=== PATIENT | male | born 1955 | race Caucasian/White ===

== ENCOUNTER 2019-08-18 19:37 | Inpatient (IN) | payer OTHER ==
[~2019-08-18] VITALS: Ht 193 cm; Wt 127.6 kg
[2019-08-18 22:36] VITALS: BP 139/85
[2019-08-19] MEDS ORDERED: ZOLPIDEM 5MG TABLET PO PRN ×2 (00:30→20:00)
[2019-08-19] MEDS ORDERED: ACETAMINOPHEN 325 MG TABLET PO PRN (00:30)
[2019-08-19] MEDS ORDERED: hydrALAzine 20 MG/ML, 1ML IVPush PRN (00:30)
[2019-08-19] MEDS ORDERED: DOCUSATE 100 MG CAPSULE PO PRN (00:30)
[2019-08-19 00:45] VITALS: BP 143/74
[2019-08-19] MEDS: HYDROcodone/APAP 5/325 TABLET PO PRN ×2 (02:54→14:34)
[2019-08-19] MEDS ORDERED: LIDOCAINE 2%, 20ML ONE (06:51)
[2019-08-19] MEDS ORDERED: CEFAZOLIN PMX 1GM/50ML 50 ML ONE (06:51)
[2019-08-19] MEDS ORDERED: MIDAZOLAM 1 MG/ML, 5ML ONE (06:51)
[2019-08-19] MEDS ORDERED: CEFAZOLIN 1,000 MG ONE (06:51)
[2019-08-19] MEDS ORDERED: FENTANYL PF 100 MCG/2ML ONE (06:51)
[2019-08-19] MEDS ORDERED: LIDOCAINE 1%, 20ML ONE (07:22)
[2019-08-19] MEDS ORDERED: MIDAZOLAM 1 MG/ML, 2ML ONE ×2 (07:24→07:40)
[2019-08-19] MEDS ORDERED: HOLD MEDICATION MC PRN (07:30)
[2019-08-19 08:18] VITALS: BP 136/86
[2019-08-19] MEDS: SODIUM CHLORIDE FLUSH 10ML SYR IVF SCH ×2 (08:27→21:00)
[2019-08-19 09:16] LABS: ALBUMIN 3.5 g/dL (3.4-5.0); ANION GAP 6 mmol/L (5-15); CHLORIDE 112 mmol/L (98-107)
[2019-08-19 09:25] LABS: ALANINE AMINOTRANSFERASE 35 U/L (12-78); ALKALINE PHOSPHATASE 63 U/L (45-117); BILIRUBIN,TOTAL 1.6 mg/dL (0.2-1.0); CREATININE 0.98 mg/dL (0.7-1.3); FREE T4 (FREE THYROXINE) 0.92 ng/dL (0.76-1.46); TOTAL PROTEIN 7.2 g/dL (6.4-8.2)
[2019-08-19 09:51] LABS: MEAN CORPUSCULAR HEMOGLOBIN 30.9 pg (27.5-34.5); MEAN CORPUSCULAR HGB CONC 32.6 g/dL (33.2-36.2); MEAN CORPUSCULAR VOLUME 94.8 fL (81-97); MEAN PLATELET VOLUME 9.3 fL (7.4-10.4); PLATELET COUNT 89 x10^3/uL (130-400); RED BLOOD COUNT 4.29 x10^6/uL (4.38-5.82); RED CELL DISTRIBUTION WIDTH 22.2 % (9.4-14.8)
[2019-08-19 09:52] LABS: MD YES
[2019-08-19 09:59] LABS: BAND#(MANUAL) 0.19 x10^3/uL; BANDS%(MANUAL) 6 % (0-7); EOS#(MANUAL) 0.06 x10^3/uL (0.0-0.4); EOS% (MANUAL) 2 % (1-7); LYMPH#(MANUAL) 1.44 x10^3/uL (1-3.4); LYMPHS% (MANUAL) 45 % (22-44); MONOS#(MANUAL) 0.19 x10^3/uL (0.3-2.7); MONOS% (MANUAL) 6 % (2-9); NRBC % (MANUAL) 3 % (0-1); REACTIVE LYMPHS # (MANUAL) 0.19 x10^3/uL (0-0); REACTIVE LYMPHS % (MANUAL) 6 % (0-0); SEG#(MANUAL) 1.12 x10^3/uL (1.8-6.8); SEGS% (MANUAL) 35 % (42-75)
[2019-08-19 10:01] LABS: POLYCHROMASIA 1+
[2019-08-19 10:02] LABS: <PLATELET ESTIMATE> DECREASED; ANISOCYTOSIS 1+; LARGE PLATELETS 1+; PMNS WITH VACUOLES 1+
[2019-08-19 14:11] VITALS: BP 127/75
[2019-08-19] MEDS: LIDODERM 5% PATCH TD PRN (14:33)
[2019-08-19] MEDS: CEFAZOLIN PMX 1GM/50ML 50 ML IVPB SCH (16:58)
[2019-08-19 19:41] VITALS: BP 149/77
[2019-08-19] MEDS ORDERED: ZOLPIDEM 10MG TABLET ONE (19:58)
[2019-08-19] MEDS ORDERED: ATORVASTATIN 40 MG TABLET PO SCH (21:00)
[2019-08-20] MEDS: CEFAZOLIN PMX 1GM/50ML 50 ML IVPB SCH (00:17)
[2019-08-20 00:37] VITALS: BP 124/63
[2019-08-20] MEDS ORDERED: METOPROLOL SUCCINATE 25 MG TAB.ER.24H PO SCH (06:00)
[2019-08-20 06:08] LABS: CHLORIDE 107 mmol/L (98-107)
[2019-08-20 06:17] LABS: ALANINE AMINOTRANSFERASE 36 U/L (12-78); ALBUMIN 3.7 g/dL (3.4-5.0); ALKALINE PHOSPHATASE 72 U/L (45-117); ANION GAP 7 mmol/L (5-15); BILIRUBIN,TOTAL 1.7 mg/dL (0.2-1.0); CALCIUM 9.1 mg/dL (8.5-10.1); CHOL/HDL RATIO 3.5; CHOLESTEROL, TOTAL 120 mg/dL (140-239); CREATININE 1.02 mg/dL (0.7-1.3); HDL CHOL % 28 % (26-37); HDL CHOLESTEROL (DIRECT) 34 mg/dL (40-60); LDL CHOLESTEROL,CALCULATED 67 mg/dL (54-169); TOTAL PROTEIN 7.8 g/dL (6.4-8.2); TRIGLYCERIDES 93 mg/dL (50-200); VLDL CHOLESTEROL 19 mg/dL (0-25)
[2019-08-20 06:47] LABS: MD YES; MEAN CORPUSCULAR HEMOGLOBIN 30.8 pg (27.5-34.5); MEAN CORPUSCULAR HGB CONC 32.6 g/dL (33.2-36.2); MEAN CORPUSCULAR VOLUME 94.4 fL (81-97); MEAN PLATELET VOLUME 9.4 fL (7.4-10.4); PLATELET COUNT 98 x10^3/uL (130-400); RED BLOOD COUNT 4.62 x10^6/uL (4.38-5.82); RED CELL DISTRIBUTION WIDTH 21.8 % (9.4-14.8)
[2019-08-20 06:50] LABS: BAND#(MANUAL) 0.27 x10^3/uL; BANDS%(MANUAL) 6 % (0-7); EOS#(MANUAL) 0.05 x10^3/uL (0.0-0.4); EOS% (MANUAL) 1 % (1-7); LYMPH#(MANUAL) 1.76 x10^3/uL (1-3.4); LYMPHS% (MANUAL) 39 % (22-44); MONOS#(MANUAL) 0.36 x10^3/uL (0.3-2.7); MONOS% (MANUAL) 8 % (2-9); NRBC % (MANUAL) 8 % (0-1); PMNS WITH VACUOLES 1+; SEG#(MANUAL) 2.07 x10^3/uL (1.8-6.8); SEGS% (MANUAL) 46 % (42-75)
[2019-08-20 06:51] LABS: <PLATELET ESTIMATE> DECREASED; ANISOCYTOSIS 1+; LARGE PLATELETS 1+; POLYCHROMASIA 1+
[2019-08-20 07:34] VITALS: BP 129/72
[2019-08-20] MEDS: LIDODERM 5% PATCH TD PRN (08:43)
[2019-08-20 09:21] VITALS: BP 146/86
[2019-08-20] MEDS ORDERED: METO25TA91 PO ×2 (13:16→13:31)
[2019-08-20] MEDS ORDERED: TRAM50TA2 PO (13:16)
[2019-08-20] MEDS ORDERED: ATOR40TA78 PO ×2 (13:16→13:31)
== END 2019-08-20 15:20 | disposition home or self-care (01) | DRG 227 ==
LOC: 5SO 22:30 → DCLOUNGE 08-20 15:05
PROVIDERS: ADMIT Family Medicine; ATTEND Internal Medicine
PROC: 0JH608Z Insertion of Defibrillator Generator into Chest Subcutaneous Tissue and Fascia, Open Approach (ICD-10-PCS; principal; 2019-08-19)
PROC: 02HK3KZ Insertion of Defibrillator Lead into Right Ventricle, Percutaneous Approach (ICD-10-PCS; 2019-08-19)
PROC: 02H63KZ Insertion of Defibrillator Lead into Right Atrium, Percutaneous Approach (ICD-10-PCS; 2019-08-19)
DX: I45.81 Long QT syndrome (principal); S22.22XA Fracture of body of sternum, initial encounter for closed fracture; D64.9 Anemia, unspecified; D69.6 Thrombocytopenia, unspecified; E04.1 Nontoxic single thyroid nodule; I10 Essential (primary) hypertension; I25.10 Atherosclerotic heart disease of native coronary artery without angina pectoris; E66.9 Obesity, unspecified; Z68.34 Body mass index [BMI] 34.0-34.9, adult; Z87.891 Personal history of nicotine dependence; V89.2XXA Person injured in unspecified motor-vehicle accident, traffic, initial encounter; Y93.89 Activity, other specified; Y92.488 Other paved roadways as the place of occurrence of the external cause; Y99.8 Other external cause status
CPT/HCPCS: 33249; 36415; J3490; 71045; 80053; 80061; 83735; 84100; 84439; 84443; 84481; 85025; 93306; 99156; 99157; 99285; C1721; C1779; C1892; C1895; G0378; J0690; J2250; J3010

== ENCOUNTER 2020-02-10 17:02 | Emergency (ER) | payer MEDICARE ==
[~2020-02-10] VITALS: Ht 193 cm; Wt 126.6 kg
[~2020-02-10 17:02] MED LIST: ATOR40TA78 PO; METO25TA91 PO; TRAM50TA2 PO
--- NOTE | 2020-02-10 17:57 | NUR ---
PT STATES SOME DIZZINESS AND "FEELING WEIRD" X 3 DAYS. PT PLACED ON MONITORS, VSS. PACERMAKER INTEROGATED PER ERMD ORDERS, AWAITING REPORT. AWAITING LAB AND IMAGING RESULTS.
[2020-02-10 18:14] LABS: ALBUMIN 3.7 g/dL (3.4-5.0); ANION GAP 7 mmol/L (5-15); CALCIUM 9.1 mg/dL (8.5-10.1); CHLORIDE 109 mmol/L (98-107)
[2020-02-10 18:18] LABS: MEAN CORPUSCULAR HEMOGLOBIN 30.4 pg (27.5-34.5); MEAN CORPUSCULAR HGB CONC 32.5 g/dL (33.2-36.2); MEAN CORPUSCULAR VOLUME 93.7 fL (81-97); MEAN PLATELET VOLUME 10.2 fL (7.4-10.4); PLATELET COUNT 122 x10^3/uL (130-400); RED BLOOD COUNT 4.38 x10^6/uL (4.38-5.82); RED CELL DISTRIBUTION WIDTH 21.5 % (9.4-14.8)
[2020-02-10 18:19] LABS: TROPONIN I < 0.015 ng/mL (0.000-0.045)
--- NOTE | 2020-02-10 18:35 | NUR ---
PT RESTING IN BED, REMAINS ON MONITORS, VSS. NO DISTRESS. CONT TO MONITOR.
--- NOTE | 2020-02-10 19:05 | NUR ---
REPORT GIVEN TO ASHLEY RODRIGUEZ.
[2020-02-10 19:21] LABS: MD YES
[2020-02-10 19:27] LABS: BANDS%(MANUAL) 3 % (0-7); EOS#(MANUAL) 0.03 x10^3/uL (0.0-0.4); EOS% (MANUAL) 1 % (1-7); LYMPH#(MANUAL) 1.77 x10^3/uL (1-3.4); LYMPHS% (MANUAL) 52 % (22-44); MONOS% (MANUAL) 6 % (2-9); NRBC % (MANUAL) 6 % (0-1); SEG#(MANUAL) 1.29 x10^3/uL (1.8-6.8); SEGS% (MANUAL) 38 % (42-75)
[2020-02-10 19:28] LABS: ANISOCYTOSIS 1+; POLYCHROMASIA 1+
[2020-02-10 19:30] LABS: <PLATELET ESTIMATE> DECREASED; <PLT MORPHOLOGY> NORMAL PLT MORPH; PMNS WITH VACUOLES 1+
[2020-02-10 19:44] VITALS: BP 140/81
== END 2020-02-10 19:50 | disposition home or self-care (01) ==
LOC: ED 18:35
DX: R42 Dizziness and giddiness (principal); R00.2 Palpitations; R94.31 Abnormal electrocardiogram [ECG] [EKG]; I25.10 Atherosclerotic heart disease of native coronary artery without angina pectoris
CPT/HCPCS: 36415; 71045; 80048; 82040; 83735; 84443; 84484; 85025; 93005; 99285

== ENCOUNTER 2021-02-03 09:23 | Emergency (ER) | payer MEDICARE ==
[~2021-02-03] VITALS: Ht 193 cm; Wt 125.0 kg
[~2021-02-03 09:23] MED LIST changes: +ALLO300T PO; +AMOX1TAB12 PO; +ASCO500T9 PO; +CHOL500045 PO; +DOCU-131 PO; +GABA-827 PO; +OXYC10TA6 PO; +POLY17PO5 PO; +PRED50TA PO; +ZINC220C8 PO
--- NOTE | 2021-02-03 09:33 | NUR ---
CODE 250 CALLED NEAR 3RD FLOOR ELEVATOR. PT REPORTS SEVERE "SPLEEN PAIN", PT DIAPHORETIC, AND STATING HE WAS DIZZY. PT WAS ON [facility] WAY [facility] OF BLOOD. PT REPORTS HE HAS BONE MARROW CANCER AND HAS LOW PLATELETS. PT RESTING IN [facility], MONITORING IN PLACE, ALEC FISCHER AT BEDSIDE FOR EVAL, EKG DONE, PIV ALREADY IN PLACE UPON ARRIVAL, TOY.
[2021-02-03] MEDS ORDERED: MORPHINE SULFATE 4 MG/ML, 1ML ONE (09:39)
[2021-02-03] MEDS ORDERED: ONDANSETRON 2MG/ML, 2ML ONE (09:39)
[2021-02-03 09:59] LABS: MEAN CORPUSCULAR HEMOGLOBIN 30.2 pg (27.5-34.5); MEAN CORPUSCULAR HGB CONC 30.6 g/dL (33.2-36.2); MEAN PLATELET VOLUME 10.4 fL (7.4-10.4); RED BLOOD COUNT 2.82 x10^6/uL (4.38-5.82); RED CELL DISTRIBUTION WIDTH 22.7 % (9.4-14.8)
[2021-02-03] MEDS ORDERED: ONDANSETRON 2MG/ML, 2ML IVPush ONE (10:00)
[2021-02-03] MEDS ORDERED: MORPHINE SULFATE 4 MG/ML, 1ML IVPush PRN (10:00)
[2021-02-03] MEDS ORDERED: SODIUM CHLORIDE 0.9% 1,000ML IVBOLUS ONE (10:00)
[2021-02-03 10:02] LABS: PLATELET COUNT 10 x10^3/uL (130-400)
[2021-02-03 10:07] LABS: INTERNATIONAL NORMALIZED RATIO 1.1 (0.93-1.1); PROTHROMBIN TIME 11.7 Seconds (9.6-11.5)
[2021-02-03 10:09] LABS: ALANINE AMINOTRANSFERASE 18 U/L (12-78); ALBUMIN 3.1 g/dL (3.4-5.0); ANION GAP 11 mmol/L (5-15); CALCIUM 8.8 mg/dL (8.5-10.1); CHLORIDE 105 mmol/L (98-107); CREATININE 1.01 mg/dL (0.7-1.3)
[2021-02-03 10:11] LABS: ALKALINE PHOSPHATASE 60 U/L (45-117); TOTAL PROTEIN 7.2 g/dL (6.4-8.2)
[2021-02-03 10:20] LABS: LYMPHS% (MANUAL) 5 % (22-44); METAMYELOCYTES# (MANUAL) 3.99 x10^3/uL (0-0); METAMYELOCYTES% (MANUAL) 8 % (0-1); PROGRANULOCYTES% (MANUAL) 2 % (0-0)
[2021-02-03 10:23] LABS: BAND#(MANUAL) 8.98 x10^3/uL; BANDS%(MANUAL) 18 % (0-7); MONOS% (MANUAL) 4 % (2-9); MYELOCYTES# (MANUAL) 4.49 x10^3/uL (0-0); MYELOCYTES% (MANUAL) 9 % (0-0); SEG#(MANUAL) 26.95 x10^3/uL (1.8-6.8); SEGS% (MANUAL) 54 % (42-75); TOXIC GRAN 2+
[2021-02-03 10:24] LABS: ANISOCYTOSIS 1+; HYPOCHROMIA 1+; MICROCYTOSIS 1+; OVALOCYTES 1+; PMNS WITH VACUOLES 1+; POLYCHROMASIA 1+
[2021-02-03 10:25] LABS: SPHEROCYTES 1+
[2021-02-03 10:26] LABS: <PLATELET ESTIMATE> DECREASED; <PLT MORPHOLOGY> QNS FOR PLT MORPH; TEAR DROPS 1+
[2021-02-03] MEDS ORDERED: OMNIPAQUE 350 MG/ML, 100ML BOTTLE ONE (11:21)
[2021-02-03] MEDS ORDERED: ACETAMINOPHEN 500 MG TABLET ONE (11:44)
[2021-02-03] MEDS ORDERED: DIPHENHYDRAMINE 50 MG/ML, 1ML ONE (11:44)
[2021-02-03 11:49] VITALS: BP 125/64
[2021-02-03] MEDS ORDERED: DIPHENHYDRAMINE 50 MG/ML, 1ML IV ONE (12:00)
[2021-02-03] MEDS ORDERED: ACETAMINOPHEN 325 MG TABLET PO ONE (12:00)
[2021-02-03 12:04] VITALS: BP 130/55
[2021-02-03 12:08] LABS: MICROSCOPIC NOT IND
--- NOTE | 2021-02-03 12:11 | NUR ---
PER [facility] RN AND EDMD PIV TO BE LEFT IN UPON DISCHARGE FOR INFUSION OF PLATELETS TOMORROW.
[2021-02-03 12:20] VITALS: BP 123/57
[2021-02-03 12:43] VITALS: BP 125/56
== END 2021-02-03 12:45 | disposition home or self-care (01) ==
LOC: ED 10:41
DX: R10.12 Left upper quadrant pain (principal); D69.6 Thrombocytopenia, unspecified; I10 Essential (primary) hypertension; R55 Syncope and collapse; I25.10 Atherosclerotic heart disease of native coronary artery without angina pectoris; R16.1 Splenomegaly, not elsewhere classified; C94.6 Myelodysplastic disease, not elsewhere classified; E66.9 Obesity, unspecified; Z68.33 Body mass index [BMI] 33.0-33.9, adult
CPT/HCPCS: 36415; 36430; 71045; 74177; 80053; 81003; 83690; 85025; 85610; 86850; 86900; 93005; 96361; 96374; 96375; 99285; J1200; J2270; J2405; J7030; P9037; Q9967

== ENCOUNTER 2021-03-03 16:29 | Observation (INO) | payer MEDICARE ==
[~2021-03-03] VITALS: Ht 193 cm; Wt 105.5 kg
[~2021-03-03 16:29] MED LIST changes: +HYDR500C3 PO
--- NOTE | 2021-03-03 17:54 | NUR ---
ERP DOC [place] WITH USING IV PLACED BY [facility] YESTERDAY. IV FLUSHES AND HAS CLEAN, INTACT DRESSING.
[2021-03-03 17:58] LABS: MEAN CORPUSCULAR HEMOGLOBIN 30.1 pg (27.5-34.5); MEAN PLATELET VOLUME 12.2 fL (7.4-10.4); RED BLOOD COUNT 2.43 x10^6/uL (4.38-5.82); RED CELL DISTRIBUTION WIDTH 20.8 % (9.4-14.8)
[2021-03-03 18:04] LABS: PLATELET COUNT 6 x10^3/uL (130-400)
[2021-03-03 18:07] LABS: ANION GAP 7 mmol/L (5-15); CHLORIDE 104 mmol/L (98-107); CREATININE 1.03 mg/dL (0.7-1.3)
[2021-03-03] MEDS ORDERED: HYDROmorphone 1 MG/ML, 1ML INJ ONE (18:11)
--- NOTE | 2021-03-03 18:21 | NUR ---
PT MEDICATED FOR PAIN. 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 PT UNABLE TO RECALL HIS HOME MEDS. UNABLE TO COMPLETE MED REC AT THIS TIME. PT RESTING CALMLY IN BED AT THIS TIME.
[2021-03-03] MEDS ORDERED: HYDROmorphone 1 MG/ML, 1ML INJ IV ONE (18:30)
[2021-03-03 18:39] LABS: BANDS%(MANUAL) 15 % (0-7); BASOS#(MANUAL) 1.02 x10^3/uL (0-0.1); BASOS% (MANUAL) 1 % (0-1); LYMPH#(MANUAL) 3.06 x10^3/uL (1-3.4); LYMPHS% (MANUAL) 3 % (22-44); METAMYELOCYTES# (MANUAL) 6.12 x10^3/uL (0-0); METAMYELOCYTES% (MANUAL) 6 % (0-1); MONOS#(MANUAL) 3.06 x10^3/uL (0.3-2.7); MONOS% (MANUAL) 3 % (2-9); MYELOCYTES# (MANUAL) 4.08 x10^3/uL (0-0); MYELOCYTES% (MANUAL) 4 % (0-0); PROGRANULOCYTES% (MANUAL) 5 % (0-0); SEG#(MANUAL) 64.26 x10^3/uL (1.8-6.8); SEGS% (MANUAL) 63 % (42-75)
[2021-03-03 18:46] LABS: ANISOCYTOSIS 1+; POLYCHROMASIA 1+
[2021-03-03 18:48] LABS: SPHEROCYTES 1+
[2021-03-03 18:50] LABS: PMNS WITH VACUOLES 1+; TEAR DROPS 1+; TOXIC GRAN 2+
[2021-03-03 18:51] LABS: <PLATELET ESTIMATE> DECREASED; <PLT MORPHOLOGY> QNS FOR PLT MORPH
--- NOTE | 2021-03-03 19:09 | NUR ---
Report received from MICHAEL Almendarez. This RN to assume care. Patient to receive blood products.
[2021-03-03 20:15] VITALS: BP 149/75
[2021-03-03] MEDS ORDERED: OXYcodone/APAP 10/325MG TABLET ONE (20:24)
[2021-03-03] MEDS ORDERED: OXYcodone/APAP 10/325MG TABLET PO ONE (20:30)
[2021-03-03 20:48] VITALS: BP 118/51
--- NOTE | 2021-03-03 20:58 | NUR ---
Report given to MICHALE Yung. Patient to be transferred to room [id number].
[2021-03-03] MEDS ORDERED: POLYETHYLENE GLYCOL 17 GM PACKET PO PRN (21:00)
[2021-03-03] MEDS ORDERED: ONDANSETRON ODT 4 MG PO PRN (21:00)
[2021-03-03] MEDS ORDERED: ACETAMINOPHEN 325 MG TABLET PO PRN (21:00)
[2021-03-03] MEDS ORDERED: ENALAPRILAT 1.25 MG/ML, 2ML IVPush PRN (21:00)
[2021-03-03] MEDS ORDERED: ONDANSETRON 2MG/ML, 2ML IVPush PRN (21:00)
[2021-03-03] MEDS ORDERED: hydrALAzine 20 MG/ML, 1ML IVPush PRN (21:00)
[2021-03-03] MEDS ORDERED: HYDROmorphone 2 MG/ML, 1ML IVPush PRN (21:00)
[2021-03-03] MEDS ORDERED: BISACODYL 10 MG SUPP PR PRN (21:00)
[2021-03-03] MEDS ORDERED: LIDODERM 5% PATCH TD PRN (21:00)
[2021-03-03 21:18] VITALS: BP 128/69
[2021-03-03] MEDS ORDERED: METHOCARBAMOL 750 MG TABLET PO PRN (21:30)
[2021-03-03 21:41] LABS: TROPONIN I < 0.015 ng/mL (0.000-0.045)
[2021-03-03 21:58] VITALS: BP 128/69
[2021-03-03 22:55] VITALS: BP 130/64
[2021-03-03] MEDS: OXYcodone IR 5MG TABLET PO PRN (22:56)
[2021-03-03] MEDS ORDERED: DIPHENHYDRAMINE 50 MG CAPSULE PO PRN (23:00)
[2021-03-03] MEDS ORDERED: ACETAMINOPHEN 325 MG TABLET PO ONE (23:00)
[2021-03-03] MEDS: SODIUM CHLORIDE 0.9% 1,000 ML IV SCH (23:03)
[2021-03-03 23:43] VITALS: BP 139/71
[2021-03-04 00:13] VITALS: BP 138/72
[2021-03-04] MEDS ORDERED: ZOLPIDEM 10MG TABLET PO PRN (00:30)
[2021-03-04 01:47] VITALS: BP 129/66
[2021-03-04 01:48] VITALS: BP 129/66
[2021-03-04 02:29] VITALS: BP 129/66
[2021-03-04 03:27] LABS: D-DIMER (DIC) 3.4 ug/mlFEU (0.00-0.52); PROTIME 11.8 Seconds (9.6-11.5)
[2021-03-04] MEDS: OXYcodone IR 5MG TABLET PO PRN ×3 (03:30→14:51)
[2021-03-04 05:18] LABS: MEAN CORPUSCULAR HEMOGLOBIN 29.9 pg (27.5-34.5); MEAN CORPUSCULAR HGB CONC 30.9 g/dL (33.2-36.2); MEAN PLATELET VOLUME 8.9 fL (7.4-10.4); RED BLOOD COUNT 2.56 x10^6/uL (4.38-5.82); RED CELL DISTRIBUTION WIDTH 22.8 % (9.4-14.8)
[2021-03-04 05:23] LABS: ANION GAP 6 mmol/L (5-15); CALCIUM 8.7 mg/dL (8.5-10.1); CHLORIDE 104 mmol/L (98-107)
[2021-03-04] MEDS ORDERED: METOPROLOL SUCCINATE 25 MG TAB.ER.24H PO SCH (06:00)
[2021-03-04 06:14] LABS: PLATELET COUNT 24 x10^3/uL (130-400)
[2021-03-04 06:18] LABS: <PLATELET ESTIMATE> DECREASED; ANISOCYTOSIS 1+; BAND#(MANUAL) 11.93 x10^3/uL; BANDS%(MANUAL) 13 % (0-7); LYMPH#(MANUAL) 2.75 x10^3/uL (1-3.4); LYMPHS% (MANUAL) 3 % (22-44); METAMYELOCYTES# (MANUAL) 15.61 x10^3/uL (0-0); METAMYELOCYTES% (MANUAL) 17 % (0-1); MONOS#(MANUAL) 1.84 x10^3/uL (0.3-2.7); MONOS% (MANUAL) 2 % (2-9); MYELOCYTES# (MANUAL) 5.51 x10^3/uL (0-0); MYELOCYTES% (MANUAL) 6 % (0-0); PMNS WITH VACUOLES 1+; POLYCHROMASIA 1+; PROGRANULOCYTES# (MANUAL) 4.59 x10^3/uL (0-0); PROGRANULOCYTES% (MANUAL) 5 % (0-0); SEG#(MANUAL) 49.57 x10^3/uL (1.8-6.8); SEGS% (MANUAL) 54 % (42-75); SPHEROCYTES 1+; TEAR DROPS 1+; TOXIC GRAN 2+
[2021-03-04 06:19] LABS: <PLT MORPHOLOGY> NORMAL PLT MORPH
[2021-03-04 06:20] LABS: OVALOCYTES 1+
[2021-03-04 06:40] VITALS: BP 121/66
[2021-03-04] MEDS ORDERED: SENNA/DOCUSATE TABLET PO SCH (09:00)
[2021-03-04] MEDS: SODIUM CHLORIDE 0.9% 1,000 ML IV SCH (12:00)
[2021-03-04 13:15] VITALS: BP 129/61
== END 2021-03-04 19:30 | disposition home or self-care (01) ==
LOC: ED 18:25 → 4NW 21:02
PROVIDERS: ADMIT Internal Medicine; ATTEND Family Medicine
DX: M54.42 Lumbago with sciatica, left side (principal); D46.9 Myelodysplastic syndrome, unspecified; D69.6 Thrombocytopenia, unspecified; I10 Essential (primary) hypertension; D75.81 Myelofibrosis; G89.29 Other chronic pain; Z95.0 Presence of cardiac pacemaker; Z79.899 Other long term (current) drug therapy
CPT/HCPCS: 36415; 36430; 71045; 80048; 84484; 85025; 85049; 85379; 85384; 85610; 85730; 86850; 86900; 86923; 93005; 96361; 96374; 99285; G0378; J1170; J7030; P9037; P9040

== ENCOUNTER 2021-03-06 18:27 | Inpatient (IN) | payer MEDICARE ==
[~2021-03-06] VITALS: Ht 193 cm; Wt 111.7 kg
--- NOTE | 2021-03-06 19:42 | NUR ---
SENT BY [facility] FOR A DIRECT ADMIT.
[2021-03-06 20:29] LABS: ABSOLUTE RETICS # 0.191 x10^6/uL (0.5-1.5); MEAN CORPUSCULAR HEMOGLOBIN 29.8 pg (27.5-34.5); MEAN CORPUSCULAR HGB CONC 30.4 g/dL (33.2-36.2); MEAN PLATELET VOLUME 12.3 fL (7.4-10.4); RED BLOOD COUNT 2.47 x10^6/uL (4.38-5.82); RED CELL DISTRIBUTION WIDTH 24.2 % (9.4-14.8); RETICULOCYTE COUNT % 7.72 % (0.5-1.5)
[2021-03-06 20:35] LABS: ALANINE AMINOTRANSFERASE 13 U/L (12-78); ALBUMIN 3.3 g/dL (3.4-5.0); ANION GAP 8 mmol/L (5-15); CALCIUM 8.6 mg/dL (8.5-10.1); CHLORIDE 105 mmol/L (98-107); CREATININE 1.17 mg/dL (0.7-1.3)
[2021-03-06 20:38] LABS: ALKALINE PHOSPHATASE 72 U/L (45-117); BILIRUBIN,TOTAL 1.2 mg/dL (0.2-1.0); TOTAL PROTEIN 7.4 g/dL (6.4-8.2)
[2021-03-06 20:40] LABS: INTERNATIONAL NORMALIZED RATIO 1.17 (0.93-1.1); PROTHROMBIN TIME 12.4 Seconds (9.6-11.5)
[2021-03-06 21:01] LABS: PLATELET COUNT 6 x10^3/uL (130-400)
[2021-03-06 21:16] LABS: ANISOCYTOSIS 1+; BAND#(MANUAL) 13.52 x10^3/uL; BANDS%(MANUAL) 14 % (0-7); LYMPH#(MANUAL) 4.83 x10^3/uL (1-3.4); LYMPHS% (MANUAL) 5 % (22-44); METAMYELOCYTES# (MANUAL) 10.63 x10^3/uL (0-0); METAMYELOCYTES% (MANUAL) 11 % (0-1); MONOS#(MANUAL) 3.86 x10^3/uL (0.3-2.7); MONOS% (MANUAL) 4 % (2-9); MYELOCYTES# (MANUAL) 4.83 x10^3/uL (0-0); MYELOCYTES% (MANUAL) 5 % (0-0); POLYCHROMASIA 1+; SEG#(MANUAL) 58.93 x10^3/uL (1.8-6.8); SEGS% (MANUAL) 61 % (42-75)
[2021-03-06 21:17] LABS: <PLATELET ESTIMATE> DECREASED; <PLT MORPHOLOGY> QNS FOR PLT MORPH; SPHEROCYTES 1+
[2021-03-06 22:36] VITALS: BP 136/73
[2021-03-06 22:54] VITALS: BP 119/55
[2021-03-06] MEDS ORDERED: GUAIFENESIN/DM 200-20MG, 10ML UDC PO PRN (23:00)
[2021-03-06] MEDS ORDERED: ENALAPRILAT 1.25 MG/ML, 2ML IVPush PRN (23:00)
[2021-03-06] MEDS ORDERED: DOCUSATE 100 MG CAPSULE PO PRN (23:00)
[2021-03-06] MEDS ORDERED: ONDANSETRON 2MG/ML, 2ML IVPush PRN (23:00)
--- NOTE | 2021-03-06 23:00 | NUR ---
REPORT TO MIKA RODRIGUEZ
[2021-03-06] MEDS ORDERED: ZOLP10TA PO (23:03)
--- NOTE | 2021-03-06 23:04 | NUR ---
med rec updated and verified
[2021-03-06 23:32] VITALS: BP 126/60
[2021-03-07] VITALS (13 sets, daily range): BP systolic 110–142; BP diastolic 58–74
[2021-03-07] MEDS: OXYcodone IR 5MG TABLET PO PRN ×3 (00:07→21:48)
[2021-03-07] MEDS: ZOLPIDEM 5MG TABLET PO PRN ×3 (00:51→21:48)
[2021-03-07 04:28] LABS: MEAN CORPUSCULAR HGB CONC 30.7 g/dL (33.2-36.2); RED BLOOD COUNT 2.24 x10^6/uL (4.38-5.82); RED CELL DISTRIBUTION WIDTH 24.6 % (9.4-14.8)
[2021-03-07 04:31] LABS: PLATELET COUNT 19 x10^3/uL (130-400)
[2021-03-07 04:44] LABS: ANION GAP 6 mmol/L (5-15); CALCIUM 8.2 mg/dL (8.5-10.1); CHLORIDE 104 mmol/L (98-107)
[2021-03-07 04:45] LABS: CREATININE 0.95 mg/dL (0.7-1.3)
[2021-03-07] MEDS ORDERED: DIPHENHYDRAMINE 25 MG CAPSULE PO ONE ×2 (05:00→08:30)
[2021-03-07] MEDS ORDERED: SODIUM CHLORIDE 0.9% 250 ML IV SCH (05:00)
[2021-03-07 05:41] LABS: BAND#(MANUAL) 10.16 x10^3/uL; BANDS%(MANUAL) 14 % (0-7); LYMPH#(MANUAL) 4.36 x10^3/uL (1-3.4); LYMPHS% (MANUAL) 6 % (22-44); METAMYELOCYTES# (MANUAL) 7.26 x10^3/uL (0-0); METAMYELOCYTES% (MANUAL) 10 % (0-1); MONOS% (MANUAL) 4 % (2-9); MYELOCYTES# (MANUAL) 3.63 x10^3/uL (0-0); MYELOCYTES% (MANUAL) 5 % (0-0); PMNS WITH VACUOLES 1+; SEG#(MANUAL) 44.29 x10^3/uL (1.8-6.8); SEGS% (MANUAL) 61 % (42-75)
[2021-03-07 05:42] LABS: ANISOCYTOSIS 1+; POLYCHROMASIA 1+; TOXIC GRAN 2+
[2021-03-07 05:43] LABS: <PLATELET ESTIMATE> DECREASED; <PLT MORPHOLOGY> NORMAL PLT MORPH; OVALOCYTES 1+; SPHEROCYTES 1+; TEAR DROPS 1+
[2021-03-07] MEDS ORDERED: ACETAMINOPHEN 325 MG TABLET PO ONE (08:30)
[2021-03-07 08:45] LABS: ABSOLUTE RETICS # 0.207 x10^6/uL (0.5-1.5); RETICULOCYTE COUNT % 9.17 % (0.5-1.5)
[2021-03-07 08:48] LABS: RED BLOOD COUNT 2.24 x10^6/uL (4.38-5.82)
[2021-03-08] MEDS: OXYcodone IR 5MG TABLET PO PRN ×3 (01:55→21:04)
[2021-03-08 03:36] VITALS: BP 118/60
[2021-03-08 06:30] LABS: MEAN CORPUSCULAR HEMOGLOBIN 30.8 pg (27.5-34.5); MEAN CORPUSCULAR HGB CONC 32.4 g/dL (33.2-36.2); MEAN PLATELET VOLUME 8.5 fL (7.4-10.4); RED BLOOD COUNT 2.72 x10^6/uL (4.38-5.82); RED CELL DISTRIBUTION WIDTH 18.7 % (9.4-14.8)
[2021-03-08 06:32] LABS: PLATELET COUNT 12 x10^3/uL (130-400)
[2021-03-08 06:40] LABS: ALBUMIN 3.1 g/dL (3.4-5.0); ANION GAP 4 mmol/L (5-15); CALCIUM 8.2 mg/dL (8.5-10.1); CHLORIDE 105 mmol/L (98-107); CREATININE 0.89 mg/dL (0.7-1.3)
[2021-03-08 06:43] LABS: ALANINE AMINOTRANSFERASE 13 U/L (12-78); ALKALINE PHOSPHATASE 69 U/L (45-117); BILIRUBIN,TOTAL 1.4 mg/dL (0.2-1.0)
[2021-03-08 07:00] LABS: <PLATELET ESTIMATE> DECREASED; <PLT MORPHOLOGY> NORMAL PLT MORPH; ANISOCYTOSIS 1+; BANDS%(MANUAL) 4 % (0-7); LYMPH#(MANUAL) 2.88 x10^3/uL (1-3.4); LYMPHS% (MANUAL) 5 % (22-44); METAMYELOCYTES# (MANUAL) 9.78 x10^3/uL (0-0); METAMYELOCYTES% (MANUAL) 17 % (0-1); MONOS#(MANUAL) 3.45 x10^3/uL (0.3-2.7); MONOS% (MANUAL) 6 % (2-9); MYELOCYTES% (MANUAL) 4 % (0-0); OVALOCYTES 1+; POLYCHROMASIA 1+; SEGS% (MANUAL) 64 % (42-75); SPHEROCYTES 1+
[2021-03-08 07:01] LABS: PMNS WITH VACUOLES 1+; TOXIC GRAN 2+
[2021-03-08 07:41] VITALS: BP 126/73
[2021-03-08] MEDS: DECITABINE IV SCH (12:17)
[2021-03-08] MEDS: SODIUM CHLORIDE 0.9% IV SCH (12:17)
[2021-03-08 13:29] VITALS: BP 134/70
[2021-03-08 20:42] VITALS: BP 123/69
[2021-03-08] MEDS: ZOLPIDEM 5MG TABLET PO PRN (23:28)
[2021-03-09] VITALS (7 sets, daily range): BP systolic 110–118; BP diastolic 52–68
[2021-03-09] MEDS: OXYcodone IR 5MG TABLET PO PRN ×4 (01:31→21:39)
[2021-03-09 05:51] LABS: CHLORIDE 106 mmol/L (98-107)
[2021-03-09 05:54] LABS: MEAN CORPUSCULAR HEMOGLOBIN 30.1 pg (27.5-34.5); MEAN CORPUSCULAR HGB CONC 31.6 g/dL (33.2-36.2); MEAN PLATELET VOLUME 11.1 fL (7.4-10.4); RED BLOOD COUNT 2.69 x10^6/uL (4.38-5.82); RED CELL DISTRIBUTION WIDTH 20.9 % (9.4-14.8)
[2021-03-09 05:59] LABS: ALANINE AMINOTRANSFERASE 13 U/L (12-78); ALKALINE PHOSPHATASE 68 U/L (45-117); ANION GAP 5 mmol/L (5-15); CREATININE 0.85 mg/dL (0.7-1.3); TOTAL PROTEIN 6.8 g/dL (6.4-8.2)
[2021-03-09 06:00] LABS: PLATELET COUNT 6 x10^3/uL (130-400)
[2021-03-09 06:31] LABS: ANISOCYTOSIS 1+; BAND#(MANUAL) 1.38 x10^3/uL; BANDS%(MANUAL) 2 % (0-7); BASOS#(MANUAL) 0.69 x10^3/uL (0-0.1); BASOS% (MANUAL) 1 % (0-1); LYMPH#(MANUAL) 4.15 x10^3/uL (1-3.4); LYMPHS% (MANUAL) 6 % (22-44); METAMYELOCYTES# (MANUAL) 12.44 x10^3/uL (0-0); METAMYELOCYTES% (MANUAL) 18 % (0-1); MONOS#(MANUAL) 2.76 x10^3/uL (0.3-2.7); MONOS% (MANUAL) 4 % (2-9); MYELOCYTES# (MANUAL) 1.38 x10^3/uL (0-0); MYELOCYTES% (MANUAL) 2 % (0-0); SEGS% (MANUAL) 67 % (42-75)
[2021-03-09 06:32] LABS: MICROCYTOSIS 1+; OVALOCYTES 1+; POLYCHROMASIA 1+
[2021-03-09 06:33] LABS: <PLATELET ESTIMATE> DECREASED; <PLT MORPHOLOGY> QNS FOR PLT MORPH
[2021-03-09 06:35] LABS: TOXIC GRAN 2+
[2021-03-09] MEDS: DECITABINE IV SCH (12:05)
[2021-03-09] MEDS: SODIUM CHLORIDE 0.9% IV SCH (12:05)
[2021-03-09] MEDS: DIPHENHYDRAMINE 25 MG CAPSULE PO PRN (14:21)
[2021-03-09] MEDS: ACETAMINOPHEN 325 MG TABLET PO PRN (14:21)
[2021-03-09] MEDS: ZOLPIDEM 5MG TABLET PO PRN (21:46)
[2021-03-10] VITALS (10 sets, daily range): BP systolic 111–138; BP diastolic 54–76
[2021-03-10] MEDS: ZOLPIDEM 5MG TABLET PO PRN ×3 (00:30→23:06)
[2021-03-10] MEDS: METHOCARBAMOL 500 MG TABLET PO PRN ×2 (00:30→09:34)
[2021-03-10 05:38] LABS: MEAN CORPUSCULAR HEMOGLOBIN 30.9 pg (27.5-34.5); MEAN CORPUSCULAR HGB CONC 31.9 g/dL (33.2-36.2); MEAN PLATELET VOLUME 8.6 fL (7.4-10.4); RED BLOOD COUNT 2.37 x10^6/uL (4.38-5.82); RED CELL DISTRIBUTION WIDTH 20.7 % (9.4-14.8)
[2021-03-10 05:42] LABS: ALBUMIN 2.8 g/dL (3.4-5.0); ANION GAP 5 mmol/L (5-15); CALCIUM 7.9 mg/dL (8.5-10.1); CHLORIDE 105 mmol/L (98-107)
[2021-03-10 05:46] LABS: ALANINE AMINOTRANSFERASE 12 U/L (12-78); ALKALINE PHOSPHATASE 65 U/L (45-117); BILIRUBIN,TOTAL 0.8 mg/dL (0.2-1.0); CREATININE 0.85 mg/dL (0.7-1.3); TOTAL PROTEIN 6.7 g/dL (6.4-8.2)
[2021-03-10 05:50] LABS: PLATELET COUNT 8 x10^3/uL (130-400)
[2021-03-10 06:28] LABS: <PLATELET ESTIMATE> DECREASED; ANISOCYTOSIS 1+; BAND#(MANUAL) 1.48 x10^3/uL; BANDS%(MANUAL) 3 % (0-7); LYMPH#(MANUAL) 0.99 x10^3/uL (1-3.4); LYMPHS% (MANUAL) 2 % (22-44); METAMYELOCYTES# (MANUAL) 5.93 x10^3/uL (0-0); METAMYELOCYTES% (MANUAL) 12 % (0-1); MICROCYTOSIS 1+; MONOS#(MANUAL) 2.47 x10^3/uL (0.3-2.7); MONOS% (MANUAL) 5 % (2-9); MYELOCYTES# (MANUAL) 2.96 x10^3/uL (0-0); MYELOCYTES% (MANUAL) 6 % (0-0); OVALOCYTES 1+; POLYCHROMASIA 1+; PROGRANULOCYTES# (MANUAL) 0.49 x10^3/uL (0-0); PROGRANULOCYTES% (MANUAL) 1 % (0-0); SEG#(MANUAL) 35.07 x10^3/uL (1.8-6.8); SEGS% (MANUAL) 71 % (42-75)
[2021-03-10 06:29] LABS: <PLT MORPHOLOGY> QNS FOR PLT MORPH; PMNS WITH VACUOLES 1+; SPHEROCYTES 1+; TOXIC GRAN 2+
[2021-03-10] MEDS ORDERED: ACETAMINOPHEN 325 MG TABLET PO ONE (09:30)
[2021-03-10] MEDS ORDERED: DIPHENHYDRAMINE 25 MG CAPSULE PO ONE (09:30)
[2021-03-10] MEDS: SODIUM CHLORIDE 0.9% IV SCH (14:17)
[2021-03-10] MEDS: DECITABINE IV SCH (14:17)
[2021-03-10] MEDS: OXYcodone IR 5MG TABLET PO PRN (18:09)
[2021-03-11 01:16] VITALS: BP 119/66
[2021-03-11] MEDS: METHOCARBAMOL 500 MG TABLET PO PRN (01:16)
[2021-03-11 04:56] LABS: MEAN CORPUSCULAR HEMOGLOBIN 30.4 pg (27.5-34.5); MEAN CORPUSCULAR HGB CONC 31.6 g/dL (33.2-36.2); MEAN PLATELET VOLUME 8.3 fL (7.4-10.4); RED BLOOD COUNT 2.38 x10^6/uL (4.38-5.82); RED CELL DISTRIBUTION WIDTH 21.4 % (9.4-14.8)
[2021-03-11 04:57] LABS: PLATELET COUNT 17 x10^3/uL (130-400)
[2021-03-11 05:02] LABS: ANION GAP 6 mmol/L (5-15); CHLORIDE 103 mmol/L (98-107)
[2021-03-11 05:06] LABS: ALANINE AMINOTRANSFERASE 13 U/L (12-78); ALKALINE PHOSPHATASE 65 U/L (45-117); BILIRUBIN,TOTAL 0.7 mg/dL (0.2-1.0); CREATININE 0.75 mg/dL (0.7-1.3); TOTAL PROTEIN 6.9 g/dL (6.4-8.2)
[2021-03-11 05:47] LABS: BAND#(MANUAL) 5.08 x10^3/uL; BANDS%(MANUAL) 9 % (0-7); LYMPH#(MANUAL) 3.38 x10^3/uL (1-3.4); LYMPHS% (MANUAL) 6 % (22-44); METAMYELOCYTES# (MANUAL) 8.46 x10^3/uL (0-0); METAMYELOCYTES% (MANUAL) 15 % (0-1); MONOS#(MANUAL) 1.13 x10^3/uL (0.3-2.7); MONOS% (MANUAL) 2 % (2-9); MYELOCYTES# (MANUAL) 3.38 x10^3/uL (0-0); MYELOCYTES% (MANUAL) 6 % (0-0); PROGRANULOCYTES# (MANUAL) 0.56 x10^3/uL (0-0); PROGRANULOCYTES% (MANUAL) 1 % (0-0); SEGS% (MANUAL) 61 % (42-75)
[2021-03-11 05:48] LABS: <PLATELET ESTIMATE> DECREASED; ANISOCYTOSIS 1+; MICROCYTOSIS 1+; OVALOCYTES 1+; PMNS WITH VACUOLES 1+; POLYCHROMASIA 1+; SPHEROCYTES 1+; TOXIC GRAN 2+
[2021-03-11 05:49] LABS: <PLT MORPHOLOGY> NORMAL PLT MORPH
[2021-03-11] MEDS: OXYcodone IR 5MG TABLET PO PRN ×2 (06:33→21:56)
[2021-03-11 07:19] VITALS: BP 117/71
[2021-03-11] MEDS: DECITABINE IV SCH (13:06)
[2021-03-11] MEDS: SODIUM CHLORIDE 0.9% IV SCH (13:06)
[2021-03-11 13:29] VITALS: BP 122/70
[2021-03-11 19:16] VITALS: BP 108/62
[2021-03-11] MEDS: TRAZODONE 50MG TABLET PO PRN (21:56)
[2021-03-12] VITALS (7 sets, daily range): BP systolic 103–129; BP diastolic 62–74
[2021-03-12] MEDS: METHOCARBAMOL 500 MG TABLET PO PRN (01:08)
[2021-03-12 06:25] LABS: MEAN CORPUSCULAR HEMOGLOBIN 30.2 pg (27.5-34.5); MEAN CORPUSCULAR HGB CONC 31.3 g/dL (33.2-36.2); MEAN PLATELET VOLUME 8.6 fL (7.4-10.4); RED BLOOD COUNT 2.62 x10^6/uL (4.38-5.82); RED CELL DISTRIBUTION WIDTH 20.4 % (9.4-14.8)
[2021-03-12 06:27] LABS: PLATELET COUNT 12 x10^3/uL (130-400)
[2021-03-12 06:35] LABS: ALANINE AMINOTRANSFERASE 14 U/L (12-78); ALBUMIN 3.2 g/dL (3.4-5.0); ANION GAP 4 mmol/L (5-15); CALCIUM 8.5 mg/dL (8.5-10.1); CHLORIDE 103 mmol/L (98-107); CREATININE 0.88 mg/dL (0.7-1.3)
[2021-03-12 06:37] LABS: ALKALINE PHOSPHATASE 74 U/L (45-117); BILIRUBIN,TOTAL 0.9 mg/dL (0.2-1.0); TOTAL PROTEIN 7.6 g/dL (6.4-8.2)
[2021-03-12 06:55] LABS: BANDS%(MANUAL) 13 % (0-7); LYMPH#(MANUAL) 2.68 x10^3/uL (1-3.4); LYMPHS% (MANUAL) 4 % (22-44); METAMYELOCYTES# (MANUAL) 10.04 x10^3/uL (0-0); METAMYELOCYTES% (MANUAL) 15 % (0-1); MONOS#(MANUAL) 4.68 x10^3/uL (0.3-2.7); MONOS% (MANUAL) 7 % (2-9); MYELOCYTES# (MANUAL) 3.35 x10^3/uL (0-0); MYELOCYTES% (MANUAL) 5 % (0-0); PROGRANULOCYTES# (MANUAL) 2.01 x10^3/uL (0-0); PROGRANULOCYTES% (MANUAL) 3 % (0-0); SEG#(MANUAL) 35.46 x10^3/uL (1.8-6.8); SEGS% (MANUAL) 53 % (42-75)
[2021-03-12 06:56] LABS: ANISOCYTOSIS 1+; MICROCYTOSIS 1+; OVALOCYTES 1+; POLYCHROMASIA 1+; SPHEROCYTES 1+
[2021-03-12 06:57] LABS: PMNS WITH VACUOLES 1+
[2021-03-12 06:58] LABS: <PLATELET ESTIMATE> DECREASED; <PLT MORPHOLOGY> QNS FOR PLT MORPH; TOXIC GRAN 2+
[2021-03-12] MEDS: DECITABINE IV SCH (12:13)
[2021-03-12] MEDS: SODIUM CHLORIDE 0.9% IV SCH (12:13)
[2021-03-12] MEDS: DIPHENHYDRAMINE 25 MG CAPSULE PO PRN (13:25)
[2021-03-12] MEDS ORDERED: DIPHENHYDRAMINE 25 MG CAPSULE PO ONE (21:00)
[2021-03-12] MEDS: TRAZODONE 50MG TABLET PO PRN (23:52)
[2021-03-13] VITALS (11 sets, daily range): BP systolic 46–136; BP diastolic 51–77
[2021-03-13] MEDS ORDERED: LORazepam 1MG TABLET PO ONE (02:00)
[2021-03-13 05:11] LABS: MEAN CORPUSCULAR HEMOGLOBIN 30.5 pg (27.5-34.5); MEAN CORPUSCULAR HGB CONC 31.8 g/dL (33.2-36.2); MEAN PLATELET VOLUME 8.7 fL (7.4-10.4); RED BLOOD COUNT 2.29 x10^6/uL (4.38-5.82); RED CELL DISTRIBUTION WIDTH 21.3 % (9.4-14.8)
[2021-03-13 05:14] LABS: PLATELET COUNT 10 x10^3/uL (130-400)
[2021-03-13 05:26] LABS: ALBUMIN 3.1 g/dL (3.4-5.0); ANION GAP 5 mmol/L (5-15); CALCIUM 8.7 mg/dL (8.5-10.1); CHLORIDE 104 mmol/L (98-107)
[2021-03-13 05:29] LABS: ALANINE AMINOTRANSFERASE 14 U/L (12-78); ALKALINE PHOSPHATASE 69 U/L (45-117); BILIRUBIN,TOTAL 0.8 mg/dL (0.2-1.0); TOTAL PROTEIN 7.1 g/dL (6.4-8.2)
[2021-03-13 05:48] LABS: ANISOCYTOSIS 1+; BAND#(MANUAL) 2.95 x10^3/uL; BANDS%(MANUAL) 6 % (0-7); BASOS#(MANUAL) 0.98 x10^3/uL (0-0.1); BASOS% (MANUAL) 2 % (0-1); LYMPH#(MANUAL) 0.49 x10^3/uL (1-3.4); LYMPHS% (MANUAL) 1 % (22-44); METAMYELOCYTES# (MANUAL) 11.78 x10^3/uL (0-0); METAMYELOCYTES% (MANUAL) 24 % (0-1); MICROCYTOSIS 1+; MONOS#(MANUAL) 1.96 x10^3/uL (0.3-2.7); MONOS% (MANUAL) 4 % (2-9); MYELOCYTES# (MANUAL) 1.96 x10^3/uL (0-0); MYELOCYTES% (MANUAL) 4 % (0-0); OVALOCYTES 1+; PMNS WITH VACUOLES 1+; POLYCHROMASIA 1+; SEG#(MANUAL) 28.97 x10^3/uL (1.8-6.8); SEGS% (MANUAL) 59 % (42-75); SPHEROCYTES 1+; TOXIC GRAN 2+
[2021-03-13 05:49] LABS: <PLATELET ESTIMATE> DECREASED
[2021-03-13 05:50] LABS: <PLT MORPHOLOGY> NORMAL PLT MORPH
[2021-03-13] MEDS: DIPHENHYDRAMINE 25 MG CAPSULE PO PRN (09:00)
[2021-03-13] MEDS: ACETAMINOPHEN 325 MG TABLET PO PRN (09:32)
[2021-03-13] MEDS ORDERED: LORazepam 0.5MG TABLET PO PRN (21:00)
[2021-03-14 01:16] VITALS: BP 119/64
[2021-03-14 05:13] LABS: CHLORIDE 106 mmol/L (98-107)
[2021-03-14 05:15] LABS: MEAN CORPUSCULAR HEMOGLOBIN 30.6 pg (27.5-34.5); MEAN CORPUSCULAR HGB CONC 32.5 g/dL (33.2-36.2); MEAN PLATELET VOLUME 8.2 fL (7.4-10.4); RED BLOOD COUNT 2.51 x10^6/uL (4.38-5.82); RED CELL DISTRIBUTION WIDTH 19.2 % (9.4-14.8)
[2021-03-14 05:16] LABS: PLATELET COUNT 12 x10^3/uL (130-400)
[2021-03-14 05:27] LABS: ALANINE AMINOTRANSFERASE 14 U/L (12-78); ALKALINE PHOSPHATASE 79 U/L (45-117); ANION GAP 5 mmol/L (5-15); BILIRUBIN,TOTAL 0.9 mg/dL (0.2-1.0); CALCIUM 8.3 mg/dL (8.5-10.1); CREATININE 0.93 mg/dL (0.7-1.3); TOTAL PROTEIN 7.5 g/dL (6.4-8.2)
[2021-03-14 05:56] LABS: <PLATELET ESTIMATE> DECREASED; <PLT MORPHOLOGY> NORMAL PLT MORPH; ANISOCYTOSIS 1+; BAND#(MANUAL) 3.74 x10^3/uL; BANDS%(MANUAL) 8 % (0-7); METAMYELOCYTES# (MANUAL) 6.08 x10^3/uL (0-0); METAMYELOCYTES% (MANUAL) 13 % (0-1); MICROCYTOSIS 1+; MONOS#(MANUAL) 0.94 x10^3/uL (0.3-2.7); MONOS% (MANUAL) 2 % (2-9); MYELOCYTES# (MANUAL) 3.28 x10^3/uL (0-0); MYELOCYTES% (MANUAL) 7 % (0-0); OVALOCYTES 1+; PMNS WITH VACUOLES 1+; POLYCHROMASIA 1+; SEG#(MANUAL) 32.76 x10^3/uL (1.8-6.8); SEGS% (MANUAL) 70 % (42-75); SPHEROCYTES 1+; TOXIC GRAN 2+
[2021-03-14 07:50] VITALS: BP 136/74
[2021-03-14 12:53] VITALS: BP 130/67
[2021-03-14 18:50] VITALS: BP 116/70
[2021-03-14] MEDS: LORazepam 0.5MG TABLET PO PRN ×2 (20:53→22:48)
[2021-03-15] VITALS (11 sets, daily range): BP systolic 100–129; BP diastolic 52–68
[2021-03-15 06:13] LABS: MEAN CORPUSCULAR HEMOGLOBIN 30.6 pg (27.5-34.5); MEAN CORPUSCULAR HGB CONC 32.3 g/dL (33.2-36.2); MEAN PLATELET VOLUME 9.8 fL (7.4-10.4); RED BLOOD COUNT 2.25 x10^6/uL (4.38-5.82); RED CELL DISTRIBUTION WIDTH 20.3 % (9.4-14.8)
[2021-03-15 06:17] LABS: ALANINE AMINOTRANSFERASE 13 U/L (12-78); ALBUMIN 2.8 g/dL (3.4-5.0); ANION GAP 8 mmol/L (5-15); CALCIUM 8.2 mg/dL (8.5-10.1); CHLORIDE 107 mmol/L (98-107); CREATININE 0.81 mg/dL (0.7-1.3)
[2021-03-15 06:28] LABS: ALKALINE PHOSPHATASE 67 U/L (45-117); BILIRUBIN,TOTAL 0.8 mg/dL (0.2-1.0); TOTAL PROTEIN 6.9 g/dL (6.4-8.2)
[2021-03-15 06:40] LABS: PLATELET COUNT 5 x10^3/uL (130-400)
[2021-03-15 06:45] LABS: <PLATELET ESTIMATE> DECREASED; <PLT MORPHOLOGY> QNS FOR PLT MORPH; ANISOCYTOSIS 1+; BAND#(MANUAL) 5.28 x10^3/uL; BANDS%(MANUAL) 15 % (0-7); LYMPHS% (MANUAL) 2 % (22-44); METAMYELOCYTES# (MANUAL) 2.82 x10^3/uL (0-0); METAMYELOCYTES% (MANUAL) 8 % (0-1); MICROCYTOSIS 1+; MONOS#(MANUAL) 0.35 x10^3/uL (0.3-2.7); MONOS% (MANUAL) 1 % (2-9); MYELOCYTES# (MANUAL) 2.11 x10^3/uL (0-0); MYELOCYTES% (MANUAL) 6 % (0-0); OVALOCYTES 1+; PMNS WITH VACUOLES 1+; POLYCHROMASIA 1+; SEG#(MANUAL) 23.94 x10^3/uL (1.8-6.8); SEGS% (MANUAL) 68 % (42-75); SPHEROCYTES 1+; TOXIC GRAN 2+
[2021-03-15] MEDS: ALLOPURINOL 300 MG TABLET PO SCH (09:11)
[2021-03-15] MEDS: ACETAMINOPHEN 325 MG TABLET PO PRN (09:38)
[2021-03-15] MEDS: DIPHENHYDRAMINE 25 MG CAPSULE PO PRN (09:38)
[2021-03-15] MEDS: LORazepam 0.5MG TABLET PO PRN (20:55)
[2021-03-16] VITALS (9 sets, daily range): BP systolic 93–144; BP diastolic 56–74
[2021-03-16 04:29] LABS: MEAN CORPUSCULAR HEMOGLOBIN 30.4 pg (27.5-34.5); MEAN CORPUSCULAR HGB CONC 32.2 g/dL (33.2-36.2); MEAN PLATELET VOLUME 8.7 fL (7.4-10.4); RED CELL DISTRIBUTION WIDTH 18.3 % (9.4-14.8)
[2021-03-16 04:36] LABS: PLATELET COUNT 9 x10^3/uL (130-400)
[2021-03-16 04:43] LABS: ALANINE AMINOTRANSFERASE 16 U/L (12-78); ALBUMIN 2.9 g/dL (3.4-5.0); ANION GAP 6 mmol/L (5-15); CALCIUM 8.1 mg/dL (8.5-10.1); CHLORIDE 106 mmol/L (98-107)
[2021-03-16 04:46] LABS: ALKALINE PHOSPHATASE 85 U/L (45-117); BILIRUBIN,TOTAL 0.7 mg/dL (0.2-1.0); CREATININE 0.81 mg/dL (0.7-1.3); TOTAL PROTEIN 7.3 g/dL (6.4-8.2)
[2021-03-16 05:45] LABS: LYMPH#(MANUAL) 0.95 x10^3/uL (1-3.4); LYMPHS% (MANUAL) 3 % (22-44); METAMYELOCYTES# (MANUAL) 0.95 x10^3/uL (0-0); METAMYELOCYTES% (MANUAL) 3 % (0-1)
[2021-03-16 05:47] LABS: BAND#(MANUAL) 4.11 x10^3/uL; BANDS%(MANUAL) 13 % (0-7); MONOS#(MANUAL) 0.95 x10^3/uL (0.3-2.7); MONOS% (MANUAL) 3 % (2-9); MYELOCYTES# (MANUAL) 0.32 x10^3/uL (0-0); MYELOCYTES% (MANUAL) 1 % (0-0); PMNS WITH VACUOLES 1+; SEG#(MANUAL) 24.33 x10^3/uL (1.8-6.8); SEGS% (MANUAL) 77 % (42-75); TOXIC GRAN 2+
[2021-03-16 05:48] LABS: <PLATELET ESTIMATE> DECREASED; <PLT MORPHOLOGY> QNS FOR PLT MORPH; ANISOCYTOSIS 1+; MICROCYTOSIS 1+; OVALOCYTES 1+; SPHEROCYTES 1+
[2021-03-16] MEDS: ALLOPURINOL 300 MG TABLET PO SCH (07:56)
[2021-03-16] MEDS: DIPHENHYDRAMINE 25 MG CAPSULE PO PRN (10:59)
[2021-03-16] MEDS: ACETAMINOPHEN 325 MG TABLET PO PRN (10:59)
[2021-03-16] MEDS: OXYcodone IR 5MG TABLET PO PRN ×2 (13:45→21:19)
[2021-03-17] VITALS (11 sets, daily range): BP systolic 111–125; BP diastolic 53–74
[2021-03-17] MEDS: OXYcodone IR 5MG TABLET PO PRN ×3 (03:29→20:28)
[2021-03-17 04:37] LABS: MEAN CORPUSCULAR HEMOGLOBIN 31.4 pg (27.5-34.5); MEAN CORPUSCULAR HGB CONC 33.1 g/dL (33.2-36.2); RED BLOOD COUNT 2.16 x10^6/uL (4.38-5.82); RED CELL DISTRIBUTION WIDTH 19.1 % (9.4-14.8)
[2021-03-17 04:42] LABS: PLATELET COUNT 8 x10^3/uL (130-400)
[2021-03-17 04:47] LABS: ALANINE AMINOTRANSFERASE 12 U/L (12-78); ALBUMIN 2.9 g/dL (3.4-5.0); ANION GAP 6 mmol/L (5-15); CHLORIDE 108 mmol/L (98-107); CREATININE 0.91 mg/dL (0.7-1.3)
[2021-03-17 04:49] LABS: ALKALINE PHOSPHATASE 74 U/L (45-117); BILIRUBIN,TOTAL 0.6 mg/dL (0.2-1.0); TOTAL PROTEIN 6.8 g/dL (6.4-8.2)
[2021-03-17 05:29] LABS: ANISOCYTOSIS 1+; BAND#(MANUAL) 1.95 x10^3/uL; BANDS%(MANUAL) 10 % (0-7); LYMPH#(MANUAL) 0.39 x10^3/uL (1-3.4); LYMPHS% (MANUAL) 2 % (22-44); METAMYELOCYTES# (MANUAL) 0.59 x10^3/uL (0-0); METAMYELOCYTES% (MANUAL) 3 % (0-1); MICROCYTOSIS 1+; SEG#(MANUAL) 16.58 x10^3/uL (1.8-6.8); SEGS% (MANUAL) 85 % (42-75)
[2021-03-17 05:30] LABS: <PLATELET ESTIMATE> DECREASED; <PLT MORPHOLOGY> QNS FOR PLT MORPH; OVALOCYTES 1+; SPHEROCYTES 1+
[2021-03-17] MEDS: DIPHENHYDRAMINE 25 MG CAPSULE PO PRN (07:51)
[2021-03-17] MEDS: ACETAMINOPHEN 325 MG TABLET PO PRN (07:51)
[2021-03-17] MEDS: ALLOPURINOL 300 MG TABLET PO SCH (09:05)
[2021-03-18 00:21] VITALS: BP 126/68
[2021-03-18] MEDS: OXYcodone IR 5MG TABLET PO PRN ×2 (00:28→23:44)
[2021-03-18 05:18] LABS: MEAN CORPUSCULAR HEMOGLOBIN 31.3 pg (27.5-34.5); MEAN CORPUSCULAR HGB CONC 34.4 g/dL (33.2-36.2); MEAN PLATELET VOLUME 9.1 fL (7.4-10.4); RED BLOOD COUNT 2.38 x10^6/uL (4.38-5.82); RED CELL DISTRIBUTION WIDTH 19.6 % (9.4-14.8)
[2021-03-18 05:21] LABS: PLATELET COUNT 11 x10^3/uL (130-400)
[2021-03-18 05:23] LABS: CHLORIDE 105 mmol/L (98-107)
[2021-03-18 05:31] LABS: ANION GAP 5 mmol/L (5-15); CALCIUM 8.2 mg/dL (8.5-10.1); CREATININE 0.76 mg/dL (0.7-1.3)
[2021-03-18 05:52] LABS: ANISOCYTOSIS 1+; BAND#(MANUAL) 0.97 x10^3/uL; BANDS%(MANUAL) 7 % (0-7); LYMPH#(MANUAL) 0.56 x10^3/uL (1-3.4); LYMPHS% (MANUAL) 4 % (22-44); METAMYELOCYTES# (MANUAL) 0.28 x10^3/uL (0-0); METAMYELOCYTES% (MANUAL) 2 % (0-1); MICROCYTOSIS 1+; MYELOCYTES# (MANUAL) 0.28 x10^3/uL (0-0); MYELOCYTES% (MANUAL) 2 % (0-0); SEG#(MANUAL) 11.82 x10^3/uL (1.8-6.8); SEGS% (MANUAL) 85 % (42-75)
[2021-03-18 05:53] LABS: <PLATELET ESTIMATE> DECREASED; <PLT MORPHOLOGY> NORMAL PLT MORPH; OVALOCYTES 1+; PMNS WITH VACUOLES 1+; SPHEROCYTES 1+; TOXIC GRAN 1+
[2021-03-18 07:44] VITALS: BP 107/66
[2021-03-18] MEDS: ALLOPURINOL 300 MG TABLET PO SCH (09:02)
[2021-03-18 13:25] VITALS: BP 114/65
[2021-03-18 18:37] VITALS: BP 129/69
[2021-03-19] VITALS (7 sets, daily range): BP systolic 93–130; BP diastolic 52–64
[2021-03-19 04:46] LABS: MEAN CORPUSCULAR HEMOGLOBIN 31.2 pg (27.5-34.5); MEAN CORPUSCULAR HGB CONC 34.1 g/dL (33.2-36.2); MEAN PLATELET VOLUME 9.6 fL (7.4-10.4); RED CELL DISTRIBUTION WIDTH 19.8 % (9.4-14.8)
[2021-03-19 04:49] LABS: PLATELET COUNT 6 x10^3/uL (130-400)
[2021-03-19 04:57] LABS: ALBUMIN 2.8 g/dL (3.4-5.0); ANION GAP 6 mmol/L (5-15); CALCIUM 8.3 mg/dL (8.5-10.1); CHLORIDE 104 mmol/L (98-107)
[2021-03-19 05:00] LABS: ALANINE AMINOTRANSFERASE 14 U/L (12-78); ALKALINE PHOSPHATASE 68 U/L (45-117); BILIRUBIN,TOTAL 0.8 mg/dL (0.2-1.0); CREATININE 0.78 mg/dL (0.7-1.3); TOTAL PROTEIN 7.2 g/dL (6.4-8.2)
[2021-03-19 05:40] LABS: ANISOCYTOSIS 1+; BAND#(MANUAL) 0.46 x10^3/uL; BANDS%(MANUAL) 5 % (0-7); LYMPH#(MANUAL) 0.82 x10^3/uL (1-3.4); LYMPHS% (MANUAL) 9 % (22-44); METAMYELOCYTES# (MANUAL) 0.18 x10^3/uL (0-0); METAMYELOCYTES% (MANUAL) 2 % (0-1); MONOS#(MANUAL) 0.09 x10^3/uL (0.3-2.7); MONOS% (MANUAL) 1 % (2-9); MYELOCYTES# (MANUAL) 0.18 x10^3/uL (0-0); MYELOCYTES% (MANUAL) 2 % (0-0); SEG#(MANUAL) 7.37 x10^3/uL (1.8-6.8); SEGS% (MANUAL) 81 % (42-75)
[2021-03-19 05:41] LABS: MICROCYTOSIS 1+; SPHEROCYTES 1+
[2021-03-19 05:42] LABS: <PLATELET ESTIMATE> DECREASED; <PLT MORPHOLOGY> QNS FOR PLT MORPH; OVALOCYTES 1+
[2021-03-19 05:43] LABS: PMNS WITH VACUOLES 1+; TOXIC GRAN 1+
[2021-03-19] MEDS: ALLOPURINOL 300 MG TABLET PO SCH (08:27)
[2021-03-19] MEDS: DIPHENHYDRAMINE 25 MG CAPSULE PO PRN (09:26)
[2021-03-20] VITALS (10 sets, daily range): BP systolic 101–123; BP diastolic 59–69
[2021-03-20] MEDS: OXYcodone IR 5MG TABLET PO PRN ×2 (00:34→22:13)
[2021-03-20 04:54] LABS: MEAN CORPUSCULAR HEMOGLOBIN 31.2 pg (27.5-34.5); MEAN CORPUSCULAR HGB CONC 34.5 g/dL (33.2-36.2); MEAN PLATELET VOLUME 8.9 fL (7.4-10.4); RED BLOOD COUNT 2.24 x10^6/uL (4.38-5.82); RED CELL DISTRIBUTION WIDTH 18.8 % (9.4-14.8)
[2021-03-20 05:04] LABS: PLATELET COUNT 7 x10^3/uL (130-400)
[2021-03-20 05:11] LABS: ANION GAP 6 mmol/L (5-15); CALCIUM 8.3 mg/dL (8.5-10.1); CHLORIDE 105 mmol/L (98-107)
[2021-03-20 05:12] LABS: CREATININE 0.81 mg/dL (0.7-1.3)
[2021-03-20 05:42] LABS: BAND#(MANUAL) 0.27 x10^3/uL; BANDS%(MANUAL) 5 % (0-7)
[2021-03-20 05:43] LABS: LYMPH#(MANUAL) 0.74 x10^3/uL (1-3.4); LYMPHS% (MANUAL) 14 % (22-44); MONOS#(MANUAL) 0.05 x10^3/uL (0.3-2.7); MONOS% (MANUAL) 1 % (2-9); SEG#(MANUAL) 4.24 x10^3/uL (1.8-6.8); SEGS% (MANUAL) 80 % (42-75); TOXIC GRAN 1+
[2021-03-20 05:44] LABS: ANISOCYTOSIS 1+; MICROCYTOSIS 1+; OVALOCYTES 1+
[2021-03-20 05:45] LABS: <PLATELET ESTIMATE> DECREASED; <PLT MORPHOLOGY> QNS FOR PLT MORPH; SPHEROCYTES 1+
[2021-03-20 05:46] LABS: PMNS WITH VACUOLES 1+
[2021-03-20] MEDS: ALLOPURINOL 300 MG TABLET PO SCH (09:44)
[2021-03-20] MEDS: DIPHENHYDRAMINE 25 MG CAPSULE PO PRN (09:44)
[2021-03-20] MEDS: ACETAMINOPHEN 325 MG TABLET PO PRN (09:44)
[2021-03-20] MEDS: LORazepam 0.5MG TABLET PO PRN (14:51)
[2021-03-21] VITALS (10 sets, daily range): BP systolic 95–120; BP diastolic 57–70
[2021-03-21] MEDS: LORazepam 0.5MG TABLET PO PRN (03:26)
[2021-03-21 09:49] LABS: MEAN CORPUSCULAR HEMOGLOBIN 30.6 pg (27.5-34.5); MEAN CORPUSCULAR HGB CONC 34.2 g/dL (33.2-36.2); MEAN PLATELET VOLUME 8.1 fL (7.4-10.4); RED BLOOD COUNT 2.26 x10^6/uL (4.38-5.82); RED CELL DISTRIBUTION WIDTH 17.9 % (9.4-14.8)
[2021-03-21 09:57] LABS: PLATELET COUNT 6 x10^3/uL (130-400)
[2021-03-21] MEDS: ALLOPURINOL 300 MG TABLET PO SCH (10:08)
[2021-03-21 10:36] LABS: BAND#(MANUAL) 0.09 x10^3/uL; BANDS%(MANUAL) 3 % (0-7); BASOS#(MANUAL) 0.09 x10^3/uL (0-0.1); BASOS% (MANUAL) 3 % (0-1); LYMPH#(MANUAL) 0.69 x10^3/uL (1-3.4); LYMPHS% (MANUAL) 23 % (22-44); MONOS#(MANUAL) 0.06 x10^3/uL (0.3-2.7); MONOS% (MANUAL) 2 % (2-9); SEG#(MANUAL) 2.07 x10^3/uL (1.8-6.8); SEGS% (MANUAL) 69 % (42-75)
[2021-03-21 10:37] LABS: ANISOCYTOSIS 1+; MICROCYTOSIS 1+; OVALOCYTES 1+; PMNS WITH VACUOLES 1+; TOXIC GRAN 1+
[2021-03-21 10:38] LABS: <PLATELET ESTIMATE> DECREASED; <PLT MORPHOLOGY> QNS FOR PLT MORPH; SPHEROCYTES 1+
[2021-03-21] MEDS: DIPHENHYDRAMINE 25 MG CAPSULE PO PRN (10:52)
[2021-03-21] MEDS: OXYcodone IR 5MG TABLET PO PRN (21:12)
[2021-03-22 00:54] VITALS: BP 111/67
[2021-03-22] MEDS: LORazepam 0.5MG TABLET PO PRN ×2 (01:13→21:14)
[2021-03-22 01:14] VITALS: BP 110/59
[2021-03-22 06:00] LABS: MEAN CORPUSCULAR HEMOGLOBIN 30.5 pg (27.5-34.5); MEAN CORPUSCULAR HGB CONC 34.3 g/dL (33.2-36.2); MEAN PLATELET VOLUME 8.6 fL (7.4-10.4); RED CELL DISTRIBUTION WIDTH 17.6 % (9.4-14.8)
[2021-03-22 06:03] LABS: PLATELET COUNT 11 x10^3/uL (130-400)
[2021-03-22 06:43] LABS: ALBUMIN 2.8 g/dL (3.4-5.0); ANION GAP 6 mmol/L (5-15); CALCIUM 8.2 mg/dL (8.5-10.1); CHLORIDE 107 mmol/L (98-107); CREATININE 0.74 mg/dL (0.7-1.3)
[2021-03-22 06:46] LABS: BAND#(MANUAL) 0.08 x10^3/uL; BANDS%(MANUAL) 3 % (0-7); BASOS#(MANUAL) 0.03 x10^3/uL (0-0.1); BASOS% (MANUAL) 1 % (0-1); LYMPH#(MANUAL) 0.83 x10^3/uL (1-3.4); LYMPHS% (MANUAL) 32 % (22-44); MONOS#(MANUAL) 0.03 x10^3/uL (0.3-2.7); MONOS% (MANUAL) 1 % (2-9); SEG#(MANUAL) 1.64 x10^3/uL (1.8-6.8); SEGS% (MANUAL) 63 % (42-75)
[2021-03-22 06:47] LABS: ANISOCYTOSIS 1+; MICROCYTOSIS 1+; OVALOCYTES 1+; SPHEROCYTES 1+
[2021-03-22 06:48] LABS: <PLATELET ESTIMATE> DECREASED; <PLT MORPHOLOGY> QNS FOR PLT MORPH; PMNS WITH VACUOLES 1+; TOXIC GRAN 1+
[2021-03-22 08:40] VITALS: BP 110/63
[2021-03-22] MEDS: ALLOPURINOL 300 MG TABLET PO SCH (09:01)
[2021-03-22] MEDS: OXYcodone IR 5MG TABLET PO PRN ×2 (09:12→20:01)
[2021-03-22 13:58] VITALS: BP 116/57
[2021-03-22] MEDS: MAGNESIUM HYDROXIDE 8%, 30ML UDC PO PRN (16:11)
[2021-03-22] MEDS ORDERED: CYANOCOBALAMIN 1,000 MCG/ML, 1ML IM ONE (16:30)
[2021-03-22] MEDS ORDERED: CYANOCOBALAMIN 1,000 MCG TABLET PO ONE (17:30)
[2021-03-22] MEDS: ASCORBIC ACID 500 MG TABLET PO SCH (17:43)
[2021-03-22 20:17] VITALS: BP 113/68
[2021-03-22] MEDS: DOCUSATE 100 MG CAPSULE PO SCH (21:15)
[2021-03-23] VITALS (12 sets, daily range): BP systolic 98–132; BP diastolic 50–72
[2021-03-23 05:19] LABS: MEAN CORPUSCULAR HEMOGLOBIN 30.6 pg (27.5-34.5); MEAN CORPUSCULAR HGB CONC 34.4 g/dL (33.2-36.2); MEAN PLATELET VOLUME 9.1 fL (7.4-10.4); RED BLOOD COUNT 2.21 x10^6/uL (4.38-5.82); RED CELL DISTRIBUTION WIDTH 17.9 % (9.4-14.8)
[2021-03-23 05:34] LABS: PLATELET COUNT 4 x10^3/uL (130-400)
[2021-03-23 05:54] LABS: BAND#(MANUAL) 0.03 x10^3/uL; BANDS%(MANUAL) 1 % (0-7); BASOS#(MANUAL) 0.03 x10^3/uL (0-0.1); BASOS% (MANUAL) 1 % (0-1); LYMPH#(MANUAL) 0.45 x10^3/uL (1-3.4); LYMPHS% (MANUAL) 18 % (22-44); MONOS#(MANUAL) 0.08 x10^3/uL (0.3-2.7); MONOS% (MANUAL) 3 % (2-9); SEG#(MANUAL) 1.93 x10^3/uL (1.8-6.8); SEGS% (MANUAL) 77 % (42-75)
[2021-03-23 05:55] LABS: <PLATELET ESTIMATE> DECREASED; <PLT MORPHOLOGY> QNS FOR PLT MORPH; ANISOCYTOSIS 1+; MICROCYTOSIS 1+; OVALOCYTES 1+; PMNS WITH VACUOLES 1+; SPHEROCYTES 1+; TOXIC GRAN 1+
[2021-03-23] MEDS: MAGNESIUM HYDROXIDE 8%, 30ML UDC PO PRN (09:39)
[2021-03-23] MEDS: ACETAMINOPHEN 325 MG TABLET PO PRN (09:40)
[2021-03-23] MEDS: MULTIVITS,STRESS FORMULA 1 TABLET PO SCH (09:40)
[2021-03-23] MEDS: DIPHENHYDRAMINE 25 MG CAPSULE PO PRN (09:40)
[2021-03-23] MEDS: ALLOPURINOL 300 MG TABLET PO SCH (09:40)
[2021-03-23] MEDS: ASCORBIC ACID 500 MG TABLET PO SCH ×2 (09:40→16:45)
[2021-03-23] MEDS: ZINC SULFATE 220 MG CAPSULE PO SCH (09:40)
[2021-03-23] MEDS: DOCUSATE 100 MG CAPSULE PO SCH ×2 (09:40→20:53)
[2021-03-23] MEDS: CHOLECALCIFEROL 5,000u TAB PO SCH (09:41)
[2021-03-23] MEDS: OXYcodone IR 5MG TABLET PO PRN ×2 (13:41→20:53)
[2021-03-23] MEDS: LEVOFLOXACIN 500 MG TABLET PO SCH (18:32)
[2021-03-23] MEDS: LORazepam 0.5MG TABLET PO PRN (19:39)
[2021-03-23] MEDS: ACYCLOVIR 400 MG TABLET PO SCH (20:53)
[2021-03-24] VITALS (11 sets, daily range): BP systolic 102–137; BP diastolic 51–71
[2021-03-24] MEDS: DIPHENHYDRAMINE 25 MG CAPSULE PO PRN ×2 (00:29→09:27)
[2021-03-24 05:49] LABS: MEAN CORPUSCULAR HEMOGLOBIN 30.1 pg (27.5-34.5); MEAN CORPUSCULAR HGB CONC 34.2 g/dL (33.2-36.2); MEAN PLATELET VOLUME 9.2 fL (7.4-10.4); RED BLOOD COUNT 2.09 x10^6/uL (4.38-5.82); RED CELL DISTRIBUTION WIDTH 17.2 % (9.4-14.8)
[2021-03-24 05:59] LABS: PLATELET COUNT 6 x10^3/uL (130-400)
[2021-03-24 06:20] LABS: ANISOCYTOSIS 1+; BAND#(MANUAL) 0.02 x10^3/uL; BANDS%(MANUAL) 1 % (0-7); EOS#(MANUAL) 0.02 x10^3/uL (0.0-0.4); EOS% (MANUAL) 1 % (1-7); LYMPH#(MANUAL) 0.42 x10^3/uL (1-3.4); LYMPHS% (MANUAL) 28 % (22-44); MICROCYTOSIS 1+; MONOS#(MANUAL) 0.02 x10^3/uL (0.3-2.7); MONOS% (MANUAL) 1 % (2-9); OVALOCYTES 1+; SEG#(MANUAL) 1.04 x10^3/uL (1.8-6.8); SEGS% (MANUAL) 69 % (42-75); SPHEROCYTES 1+
[2021-03-24 06:21] LABS: <PLATELET ESTIMATE> DECREASED; <PLT MORPHOLOGY> QNS FOR PLT MORPH; PMNS WITH VACUOLES 1+
[2021-03-24 06:22] LABS: TOXIC GRAN 1+
[2021-03-24] MEDS: OXYcodone IR 5MG TABLET PO PRN ×2 (07:10→21:32)
[2021-03-24] MEDS: predniSONE 50MG TABLET PO SCH (08:00)
[2021-03-24] MEDS: ACETAMINOPHEN 325 MG TABLET PO PRN (09:27)
[2021-03-24] MEDS: ACYCLOVIR 400 MG TABLET PO SCH ×2 (09:28→21:31)
[2021-03-24] MEDS: DOCUSATE 100 MG CAPSULE PO SCH ×2 (09:28→21:31)
[2021-03-24] MEDS: ZINC SULFATE 220 MG CAPSULE PO SCH (09:29)
[2021-03-24] MEDS: ASCORBIC ACID 500 MG TABLET PO SCH ×2 (09:29→16:36)
[2021-03-24] MEDS: MULTIVITS,STRESS FORMULA 1 TABLET PO SCH (09:29)
[2021-03-24] MEDS: ALLOPURINOL 300 MG TABLET PO SCH (09:29)
[2021-03-24] MEDS: CHOLECALCIFEROL 5,000u TAB PO SCH (09:29)
[2021-03-24] MEDS: LORazepam 0.5MG TABLET PO PRN ×2 (12:29→21:32)
[2021-03-24] MEDS: OMEPRAZOLE 20 MG CAPSULE.DR PO SCH (16:36)
[2021-03-24] MEDS: LEVOFLOXACIN 500 MG TABLET PO SCH (17:42)
[2021-03-25] VITALS (10 sets, daily range): BP systolic 99–120; BP diastolic 56–66
[2021-03-25] MEDS: DIPHENHYDRAMINE 25 MG CAPSULE PO PRN ×2 (00:21→10:58)
[2021-03-25] MEDS: METHOCARBAMOL 500 MG TABLET PO PRN (03:19)
[2021-03-25] MEDS: OXYcodone IR 5MG TABLET PO PRN ×2 (03:19→21:05)
[2021-03-25 05:43] LABS: MEAN CORPUSCULAR HEMOGLOBIN 30.5 pg (27.5-34.5); MEAN PLATELET VOLUME 8.7 fL (7.4-10.4); RED BLOOD COUNT 2.08 x10^6/uL (4.38-5.82); RED CELL DISTRIBUTION WIDTH 16.1 % (9.4-14.8)
[2021-03-25 05:55] LABS: PLATELET COUNT 5 x10^3/uL (130-400)
[2021-03-25] MEDS: OMEPRAZOLE 20 MG CAPSULE.DR PO SCH ×2 (06:07→17:55)
[2021-03-25 06:34] LABS: SEG#(MANUAL) 0.89 x10^3/uL (1.8-6.8); SEGS% (MANUAL) 59 % (42-75)
[2021-03-25 06:36] LABS: BAND#(MANUAL) 0.03 x10^3/uL; BANDS%(MANUAL) 2 % (0-7); LYMPH#(MANUAL) 0.59 x10^3/uL (1-3.4); LYMPHS% (MANUAL) 39 % (22-44)
[2021-03-25 06:37] LABS: ANISOCYTOSIS 1+; MICROCYTOSIS 1+
[2021-03-25 06:38] LABS: <PLATELET ESTIMATE> DECREASED; OVALOCYTES 1+; SPHEROCYTES 1+; TOXIC GRAN 1+
[2021-03-25 06:39] LABS: <PLT MORPHOLOGY> QNS FOR PLT MORPH
[2021-03-25] MEDS: ALLOPURINOL 300 MG TABLET PO SCH (10:57)
[2021-03-25] MEDS: predniSONE 50MG TABLET PO SCH (10:57)
[2021-03-25] MEDS: ACYCLOVIR 400 MG TABLET PO SCH ×2 (10:57→21:05)
[2021-03-25] MEDS: MULTIVITS,STRESS FORMULA 1 TABLET PO SCH (10:57)
[2021-03-25] MEDS: ASCORBIC ACID 500 MG TABLET PO SCH ×2 (10:57→17:55)
[2021-03-25] MEDS: ACETAMINOPHEN 325 MG TABLET PO PRN (10:57)
[2021-03-25] MEDS: ZINC SULFATE 220 MG CAPSULE PO SCH (10:58)
[2021-03-25] MEDS: CHOLECALCIFEROL 5,000u TAB PO SCH (10:58)
[2021-03-25] MEDS: DOCUSATE 100 MG CAPSULE PO SCH ×2 (10:58→21:05)
[2021-03-25] MEDS: LEVOFLOXACIN 500 MG TABLET PO SCH (17:56)
[2021-03-25] MEDS: LORazepam 0.5MG TABLET PO PRN (21:05)
[2021-03-26] VITALS (11 sets, daily range): BP systolic 94–123; BP diastolic 50–66
[2021-03-26] MEDS: METHOCARBAMOL 500 MG TABLET PO PRN ×2 (00:30→20:42)
[2021-03-26] MEDS: OMEPRAZOLE 20 MG CAPSULE.DR PO SCH ×2 (06:00→16:02)
[2021-03-26] MEDS: OXYcodone IR 5MG TABLET PO PRN ×2 (06:02→23:14)
[2021-03-26 06:04] LABS: MEAN CORPUSCULAR HEMOGLOBIN 30.3 pg (27.5-34.5); MEAN CORPUSCULAR HGB CONC 34.9 g/dL (33.2-36.2); RED BLOOD COUNT 2.06 x10^6/uL (4.38-5.82); RED CELL DISTRIBUTION WIDTH 16.2 % (9.4-14.8)
[2021-03-26 06:07] LABS: PLATELET COUNT 4 x10^3/uL (130-400)
[2021-03-26 06:40] LABS: LYMPH#(MANUAL) 0.52 x10^3/uL (1-3.4); LYMPHS% (MANUAL) 43 % (22-44); SEG#(MANUAL) 0.68 x10^3/uL (1.8-6.8); SEGS% (MANUAL) 57 % (42-75); TOXIC GRAN 1+
[2021-03-26 06:42] LABS: ANISOCYTOSIS 1+
[2021-03-26 06:43] LABS: <PLATELET ESTIMATE> DECREASED; <PLT MORPHOLOGY> QNS FOR PLT MORPH; MICROCYTOSIS 1+; OVALOCYTES 1+; SPHEROCYTES 1+
[2021-03-26] MEDS: MULTIVITS,STRESS FORMULA 1 TABLET PO SCH (08:07)
[2021-03-26] MEDS: ZINC SULFATE 220 MG CAPSULE PO SCH (08:07)
[2021-03-26] MEDS: predniSONE 50MG TABLET PO SCH (08:07)
[2021-03-26] MEDS: DOCUSATE 100 MG CAPSULE PO SCH ×2 (08:07→20:42)
[2021-03-26] MEDS: ACYCLOVIR 400 MG TABLET PO SCH ×2 (08:07→20:41)
[2021-03-26] MEDS: CHOLECALCIFEROL 5,000u TAB PO SCH (08:07)
[2021-03-26] MEDS: ASCORBIC ACID 500 MG TABLET PO SCH ×2 (08:07→16:02)
[2021-03-26] MEDS: ALLOPURINOL 300 MG TABLET PO SCH (08:08)
[2021-03-26] MEDS: ACETAMINOPHEN 325 MG TABLET PO PRN (10:23)
[2021-03-26] MEDS: DIPHENHYDRAMINE 25 MG CAPSULE PO PRN (10:23)
[2021-03-26] MEDS: LEVOFLOXACIN 500 MG TABLET PO SCH (18:13)
[2021-03-26] MEDS: LORazepam 0.5MG TABLET PO PRN (20:42)
[2021-03-27] VITALS (11 sets, daily range): BP systolic 101–123; BP diastolic 54–69
[2021-03-27 04:01] LABS: MEAN CORPUSCULAR HEMOGLOBIN 29.8 pg (27.5-34.5); MEAN CORPUSCULAR HGB CONC 34.2 g/dL (33.2-36.2); MEAN PLATELET VOLUME 7.6 fL (7.4-10.4); RED CELL DISTRIBUTION WIDTH 15.9 % (9.4-14.8)
[2021-03-27 04:04] LABS: PLATELET COUNT 4 x10^3/uL (130-400)
[2021-03-27 04:05] LABS: ANION GAP 5 mmol/L (5-15); CALCIUM 7.6 mg/dL (8.5-10.1); CHLORIDE 106 mmol/L (98-107)
[2021-03-27 04:07] LABS: CREATININE 0.69 mg/dL (0.7-1.3)
[2021-03-27 04:51] LABS: BAND#(MANUAL) 0.01 x10^3/uL; BANDS%(MANUAL) 1 % (0-7); SEG#(MANUAL) 0.64 x10^3/uL (1.8-6.8); SEGS% (MANUAL) 58 % (42-75)
[2021-03-27 04:52] LABS: <PLATELET ESTIMATE> DECREASED; <PLT MORPHOLOGY> QNS FOR PLT MORPH; ANISOCYTOSIS 1+; LYMPH#(MANUAL) 0.44 x10^3/uL (1-3.4); LYMPHS% (MANUAL) 40 % (22-44); MICROCYTOSIS 1+; MONOS#(MANUAL) 0.01 x10^3/uL (0.3-2.7); MONOS% (MANUAL) 1 % (2-9); OVALOCYTES 1+; SPHEROCYTES 1+; TOXIC GRAN 1+
[2021-03-27] MEDS: OMEPRAZOLE 20 MG CAPSULE.DR PO SCH ×2 (05:32→15:59)
[2021-03-27] MEDS: ACYCLOVIR 400 MG TABLET PO SCH ×2 (08:45→20:24)
[2021-03-27] MEDS: ASCORBIC ACID 500 MG TABLET PO SCH ×2 (08:45→16:00)
[2021-03-27] MEDS: ALLOPURINOL 300 MG TABLET PO SCH (08:45)
[2021-03-27] MEDS: predniSONE 50MG TABLET PO SCH (08:45)
[2021-03-27] MEDS: CHOLECALCIFEROL 5,000u TAB PO SCH (08:46)
[2021-03-27] MEDS: DOCUSATE 100 MG CAPSULE PO SCH ×2 (08:46→20:24)
[2021-03-27] MEDS: ZINC SULFATE 220 MG CAPSULE PO SCH (08:46)
[2021-03-27] MEDS: MULTIVITS,STRESS FORMULA 1 TABLET PO SCH (08:46)
[2021-03-27] MEDS: DIPHENHYDRAMINE 25 MG CAPSULE PO PRN (10:07)
[2021-03-27] MEDS: ACETAMINOPHEN 325 MG TABLET PO PRN (10:07)
[2021-03-27] MEDS ORDERED: maalox/diphenh/lido/sucralfate 5 ML PO PRN (11:00)
[2021-03-27] MEDS: OXYcodone IR 5MG TABLET PO PRN (12:57)
[2021-03-27] MEDS: LORazepam 0.5MG TABLET PO PRN (16:00)
[2021-03-27] MEDS: LEVOFLOXACIN 500 MG TABLET PO SCH (18:15)
[2021-03-27] MEDS: METHOCARBAMOL 500 MG TABLET PO PRN (20:24)
[2021-03-27] MEDS: maalox/diphenh/lido/sucralfate 5 ML PO PRN (22:03)
[2021-03-28] VITALS (10 sets, daily range): BP systolic 102–125; BP diastolic 47–71
[2021-03-28] MEDS: OXYcodone IR 5MG TABLET PO PRN ×2 (00:36→21:05)
[2021-03-28] MEDS: LORazepam 0.5MG TABLET PO PRN ×2 (00:36→17:47)
[2021-03-28 05:46] LABS: ANION GAP 7 mmol/L (5-15); CALCIUM 7.9 mg/dL (8.5-10.1); CHLORIDE 108 mmol/L (98-107)
[2021-03-28 05:47] LABS: MEAN CORPUSCULAR HEMOGLOBIN 29.5 pg (27.5-34.5); MEAN PLATELET VOLUME 7.1 fL (7.4-10.4); RED BLOOD COUNT 2.22 x10^6/uL (4.38-5.82); RED CELL DISTRIBUTION WIDTH 15.6 % (9.4-14.8)
[2021-03-28 05:50] LABS: PLATELET COUNT 5 x10^3/uL (130-400)
[2021-03-28] MEDS: OMEPRAZOLE 20 MG CAPSULE.DR PO SCH ×2 (05:59→17:47)
[2021-03-28 06:25] LABS: BAND#(MANUAL) 0.02 x10^3/uL; BANDS%(MANUAL) 2 % (0-7); SEG#(MANUAL) 0.36 x10^3/uL (1.8-6.8); SEGS% (MANUAL) 45 % (42-75)
[2021-03-28 06:26] LABS: LYMPH#(MANUAL) 0.42 x10^3/uL (1-3.4); LYMPHS% (MANUAL) 53 % (22-44)
[2021-03-28 06:28] LABS: ANISOCYTOSIS 1+; OVALOCYTES 1+
[2021-03-28 06:29] LABS: <PLATELET ESTIMATE> DECREASED; <PLT MORPHOLOGY> QNS FOR PLT MORPH; SPHEROCYTES 1+
[2021-03-28 06:43] LABS: TOXIC GRAN 1+
[2021-03-28] MEDS: DOCUSATE 100 MG CAPSULE PO SCH ×2 (08:21→21:06)
[2021-03-28] MEDS: MULTIVITS,STRESS FORMULA 1 TABLET PO SCH (08:21)
[2021-03-28] MEDS: CHOLECALCIFEROL 5,000u TAB PO SCH (08:22)
[2021-03-28] MEDS: ALLOPURINOL 300 MG TABLET PO SCH (08:22)
[2021-03-28] MEDS: ACYCLOVIR 400 MG TABLET PO SCH ×2 (08:22→21:06)
[2021-03-28] MEDS: ASCORBIC ACID 500 MG TABLET PO SCH ×2 (08:22→17:47)
[2021-03-28] MEDS: ZINC SULFATE 220 MG CAPSULE PO SCH (08:22)
[2021-03-28] MEDS: predniSONE 50MG TABLET PO SCH (08:22)
[2021-03-28] MEDS: ACETAMINOPHEN 325 MG TABLET PO PRN (11:35)
[2021-03-28] MEDS: DIPHENHYDRAMINE 25 MG CAPSULE PO PRN (11:35)
[2021-03-28] MEDS: LEVOFLOXACIN 500 MG TABLET PO SCH (17:47)
[2021-03-28] MEDS: METHOCARBAMOL 500 MG TABLET PO PRN (21:05)
[2021-03-29] VITALS (10 sets, daily range): BP systolic 99–126; BP diastolic 50–71
[2021-03-29] MEDS: LORazepam 0.5MG TABLET PO PRN ×2 (04:10→20:58)
[2021-03-29 04:34] LABS: MEAN CORPUSCULAR HEMOGLOBIN 29.8 pg (27.5-34.5); MEAN CORPUSCULAR HGB CONC 34.2 g/dL (33.2-36.2); MEAN PLATELET VOLUME 8.1 fL (7.4-10.4); RED BLOOD COUNT 2.33 x10^6/uL (4.38-5.82); RED CELL DISTRIBUTION WIDTH 15.3 % (9.4-14.8)
[2021-03-29 04:36] LABS: ANION GAP 7 mmol/L (5-15); CALCIUM 8.3 mg/dL (8.5-10.1); CHLORIDE 105 mmol/L (98-107); CREATININE 0.75 mg/dL (0.7-1.3)
[2021-03-29 04:40] LABS: PLATELET COUNT 6 x10^3/uL (130-400)
[2021-03-29 05:52] LABS: BAND#(MANUAL) 0.02 x10^3/uL; BANDS%(MANUAL) 3 % (0-7); SEG#(MANUAL) 0.32 x10^3/uL (1.8-6.8); SEGS% (MANUAL) 45 % (42-75)
[2021-03-29 05:53] LABS: ANISOCYTOSIS 1+; EOS#(MANUAL) 0.01 x10^3/uL (0.0-0.4); EOS% (MANUAL) 1 % (1-7); LYMPH#(MANUAL) 0.35 x10^3/uL (1-3.4); LYMPHS% (MANUAL) 50 % (22-44); MONOS#(MANUAL) 0.01 x10^3/uL (0.3-2.7); MONOS% (MANUAL) 1 % (2-9); OVALOCYTES 1+
[2021-03-29 05:54] LABS: <PLATELET ESTIMATE> DECREASED; <PLT MORPHOLOGY> QNS FOR PLT MORPH; SPHEROCYTES 1+; TOXIC GRAN 1+
[2021-03-29] MEDS: OMEPRAZOLE 20 MG CAPSULE.DR PO SCH ×2 (06:17→16:05)
[2021-03-29] MEDS: METHOCARBAMOL 500 MG TABLET PO PRN ×2 (06:17→20:57)
[2021-03-29] MEDS: OXYcodone IR 5MG TABLET PO PRN ×2 (06:17→23:16)
[2021-03-29] MEDS: DOCUSATE 100 MG CAPSULE PO SCH ×2 (08:32→20:58)
[2021-03-29] MEDS: MULTIVITS,STRESS FORMULA 1 TABLET PO SCH (08:32)
[2021-03-29] MEDS: ALLOPURINOL 300 MG TABLET PO SCH (08:32)
[2021-03-29] MEDS: CHOLECALCIFEROL 5,000u TAB PO SCH (08:32)
[2021-03-29] MEDS: predniSONE 50MG TABLET PO SCH (08:33)
[2021-03-29] MEDS: ZINC SULFATE 220 MG CAPSULE PO SCH (08:33)
[2021-03-29] MEDS: ASCORBIC ACID 500 MG TABLET PO SCH ×2 (08:33→16:06)
[2021-03-29] MEDS: ACYCLOVIR 400 MG TABLET PO SCH ×2 (08:33→20:58)
[2021-03-29] MEDS: ACETAMINOPHEN 325 MG TABLET PO PRN (10:29)
[2021-03-29] MEDS: DIPHENHYDRAMINE 25 MG CAPSULE PO PRN (10:30)
[2021-03-29] MEDS: maalox/diphenh/lido/sucralfate 5 ML PO PRN (16:11)
[2021-03-29] MEDS: LEVOFLOXACIN 500 MG TABLET PO SCH (18:17)
[2021-03-30] VITALS (7 sets, daily range): BP systolic 96–143; BP diastolic 52–75
[2021-03-30] MEDS: OXYcodone IR 5MG TABLET PO PRN ×3 (02:47→22:42)
[2021-03-30 05:50] LABS: MEAN CORPUSCULAR HEMOGLOBIN 29.7 pg (27.5-34.5); MEAN CORPUSCULAR HGB CONC 34.3 g/dL (33.2-36.2); MEAN PLATELET VOLUME 8.3 fL (7.4-10.4); RED CELL DISTRIBUTION WIDTH 15.2 % (9.4-14.8)
[2021-03-30 06:04] LABS: PLATELET COUNT 7 x10^3/uL (130-400)
[2021-03-30] MEDS: METHOCARBAMOL 500 MG TABLET PO PRN (06:20)
[2021-03-30] MEDS: OMEPRAZOLE 20 MG CAPSULE.DR PO SCH ×2 (06:20→16:36)
[2021-03-30] MEDS: LORazepam 0.5MG TABLET PO PRN ×2 (06:21→20:22)
[2021-03-30 06:51] LABS: BAND#(MANUAL) 0.01 x10^3/uL; BANDS%(MANUAL) 1 % (0-7); MONOS#(MANUAL) 0.01 x10^3/uL (0.3-2.7); MONOS% (MANUAL) 1 % (2-9)
[2021-03-30 06:55] LABS: SEGS% (MANUAL) 34 % (42-75)
[2021-03-30 06:56] LABS: LYMPH#(MANUAL) 0.38 x10^3/uL (1-3.4); LYMPHS% (MANUAL) 64 % (22-44)
[2021-03-30 07:11] LABS: ANISOCYTOSIS 1+
[2021-03-30 07:12] LABS: OVALOCYTES 1+; POLYCHROMASIA 1+; TOXIC GRAN 1+
[2021-03-30 07:14] LABS: <PLATELET ESTIMATE> DECREASED; <PLT MORPHOLOGY> QNS FOR PLT MORPH
[2021-03-30] MEDS: MULTIVITS,STRESS FORMULA 1 TABLET PO SCH (08:06)
[2021-03-30] MEDS: ALLOPURINOL 300 MG TABLET PO SCH (08:06)
[2021-03-30] MEDS: ASCORBIC ACID 500 MG TABLET PO SCH ×2 (08:07→16:35)
[2021-03-30] MEDS: CHOLECALCIFEROL 5,000u TAB PO SCH (08:07)
[2021-03-30] MEDS: ACYCLOVIR 400 MG TABLET PO SCH ×2 (08:07→20:18)
[2021-03-30] MEDS: DOCUSATE 100 MG CAPSULE PO SCH ×2 (08:07→20:18)
[2021-03-30] MEDS: ZINC SULFATE 220 MG CAPSULE PO SCH (08:07)
[2021-03-30] MEDS: DIPHENHYDRAMINE 25 MG CAPSULE PO PRN (10:21)
[2021-03-30] MEDS: ACETAMINOPHEN 325 MG TABLET PO PRN (10:21)
[2021-03-30] MEDS: FLUCONAZOLE 200 MG TABLET PO SCH (14:42)
[2021-03-30] MEDS: maalox/diphenh/lido/sucralfate 5 ML PO PRN (16:36)
[2021-03-30] MEDS: LEVOFLOXACIN 500 MG TABLET PO SCH (18:57)
[2021-03-31] VITALS (8 sets, daily range): BP systolic 100–117; BP diastolic 59–73
[2021-03-31] MEDS: LORazepam 0.5MG TABLET PO PRN ×2 (03:18→23:49)
[2021-03-31] MEDS: OXYcodone IR 5MG TABLET PO PRN ×2 (03:18→19:45)
[2021-03-31 05:28] LABS: MEAN CORPUSCULAR HEMOGLOBIN 29.5 pg (27.5-34.5); MEAN CORPUSCULAR HGB CONC 33.6 g/dL (33.2-36.2); MEAN PLATELET VOLUME 8.2 fL (7.4-10.4); RED BLOOD COUNT 2.48 x10^6/uL (4.38-5.82); RED CELL DISTRIBUTION WIDTH 15.3 % (9.4-14.8)
[2021-03-31 05:30] LABS: PLATELET COUNT 8 x10^3/uL (130-400)
[2021-03-31 05:39] LABS: ALANINE AMINOTRANSFERASE 55 U/L (12-78); ALBUMIN 2.8 g/dL (3.4-5.0); ANION GAP 6 mmol/L (5-15); CALCIUM 8.1 mg/dL (8.5-10.1); CHLORIDE 105 mmol/L (98-107); CREATININE 0.82 mg/dL (0.7-1.3)
[2021-03-31 05:42] LABS: ALKALINE PHOSPHATASE 124 U/L (45-117); TOTAL PROTEIN 6.4 g/dL (6.4-8.2)
[2021-03-31] MEDS: OMEPRAZOLE 20 MG CAPSULE.DR PO SCH ×2 (06:04→16:07)
[2021-03-31 06:10] LABS: BAND#(MANUAL) 0.01 x10^3/uL; BANDS%(MANUAL) 2 % (0-7); EOS#(MANUAL) 0.01 x10^3/uL (0.0-0.4); EOS% (MANUAL) 1 % (1-7)
[2021-03-31 06:11] LABS: LYMPH#(MANUAL) 0.46 x10^3/uL (1-3.4); LYMPHS% (MANUAL) 65 % (22-44); MONOS#(MANUAL) 0.01 x10^3/uL (0.3-2.7); MONOS% (MANUAL) 1 % (2-9); SEG#(MANUAL) 0.22 x10^3/uL (1.8-6.8); SEGS% (MANUAL) 31 % (42-75)
[2021-03-31 06:13] LABS: <PLATELET ESTIMATE> DECREASED; <PLT MORPHOLOGY> QNS FOR PLT MORPH; ANISOCYTOSIS 1+; OVALOCYTES 1+; SPHEROCYTES 1+
[2021-03-31 06:14] LABS: POLYCHROMASIA 1+; TOXIC GRAN 1+
[2021-03-31] MEDS: FLUCONAZOLE 200 MG TABLET PO SCH (09:07)
[2021-03-31] MEDS: DOCUSATE 100 MG CAPSULE PO SCH ×2 (09:07→20:33)
[2021-03-31] MEDS: ACYCLOVIR 400 MG TABLET PO SCH ×2 (09:07→20:33)
[2021-03-31] MEDS: ZINC SULFATE 220 MG CAPSULE PO SCH (09:07)
[2021-03-31] MEDS: ASCORBIC ACID 500 MG TABLET PO SCH ×2 (09:07→16:07)
[2021-03-31] MEDS: ACETAMINOPHEN 325 MG TABLET PO PRN (09:07)
[2021-03-31] MEDS: DIPHENHYDRAMINE 25 MG CAPSULE PO PRN (09:07)
[2021-03-31] MEDS: MULTIVITS,STRESS FORMULA 1 TABLET PO SCH (09:07)
[2021-03-31] MEDS: CHOLECALCIFEROL 5,000u TAB PO SCH (09:10)
[2021-03-31] MEDS: ALLOPURINOL 300 MG TABLET PO SCH (09:10)
[2021-03-31] MEDS: LEVOFLOXACIN 500 MG TABLET PO SCH (18:00)
[2021-03-31] MEDS: METHOCARBAMOL 500 MG TABLET PO PRN (19:45)
[2021-04-01] VITALS (10 sets, daily range): BP systolic 90–128; BP diastolic 55–74
[2021-04-01] MEDS: OXYcodone IR 5MG TABLET PO PRN ×2 (03:47→21:24)
[2021-04-01] MEDS: OMEPRAZOLE 20 MG CAPSULE.DR PO SCH ×2 (05:34→16:12)
[2021-04-01] MEDS: MULTIVITS,STRESS FORMULA 1 TABLET PO SCH (08:24)
[2021-04-01] MEDS: CHOLECALCIFEROL 5,000u TAB PO SCH (08:24)
[2021-04-01] MEDS: DOCUSATE 100 MG CAPSULE PO SCH ×2 (08:24→21:22)
[2021-04-01] MEDS: ALLOPURINOL 300 MG TABLET PO SCH (08:24)
[2021-04-01] MEDS: ASCORBIC ACID 500 MG TABLET PO SCH ×2 (08:25→16:12)
[2021-04-01] MEDS: ACYCLOVIR 400 MG TABLET PO SCH ×2 (08:25→21:22)
[2021-04-01] MEDS: FLUCONAZOLE 200 MG TABLET PO SCH (08:25)
[2021-04-01] MEDS: ZINC SULFATE 220 MG CAPSULE PO SCH (09:00)
[2021-04-01 09:34] LABS: ALANINE AMINOTRANSFERASE 50 U/L (12-78); ALBUMIN 2.6 g/dL (3.4-5.0); ANION GAP 4 mmol/L (5-15); CALCIUM 8.1 mg/dL (8.5-10.1); CHLORIDE 112 mmol/L (98-107); CREATININE 0.78 mg/dL (0.7-1.3)
[2021-04-01 09:40] LABS: ALKALINE PHOSPHATASE 111 U/L (45-117); BILIRUBIN,TOTAL 1.2 mg/dL (0.2-1.0); TOTAL PROTEIN 6.3 g/dL (6.4-8.2)
[2021-04-01 09:50] LABS: MEAN CORPUSCULAR HEMOGLOBIN 29.9 pg (27.5-34.5); MEAN CORPUSCULAR HGB CONC 34.1 g/dL (33.2-36.2); MEAN PLATELET VOLUME 8.9 fL (7.4-10.4); RED CELL DISTRIBUTION WIDTH 15.4 % (9.4-14.8)
[2021-04-01 09:57] LABS: PLATELET COUNT 7 x10^3/uL (130-400)
[2021-04-01 10:17] LABS: LYMPH#(MANUAL) 0.35 x10^3/uL (1-3.4); LYMPHS% (MANUAL) 69 % (22-44); MONOS#(MANUAL) 0.01 x10^3/uL (0.3-2.7); MONOS% (MANUAL) 1 % (2-9); SEG#(MANUAL) 0.15 x10^3/uL (1.8-6.8); SEGS% (MANUAL) 30 % (42-75)
[2021-04-01 10:18] LABS: <PLATELET ESTIMATE> DECREASED; <PLT MORPHOLOGY> QNS FOR PLT MORPH; ANISOCYTOSIS 1+; OVALOCYTES 1+; POLYCHROMASIA 1+; SPHEROCYTES 1+; TOXIC GRAN 1+
[2021-04-01] MEDS: ACETAMINOPHEN 325 MG TABLET PO PRN (11:44)
[2021-04-01] MEDS: DIPHENHYDRAMINE 25 MG CAPSULE PO PRN (11:44)
[2021-04-01] MEDS: LEVOFLOXACIN 500 MG TABLET PO SCH (18:36)
[2021-04-01] MEDS: LORazepam 0.5MG TABLET PO PRN (21:23)
[2021-04-02] VITALS (10 sets, daily range): BP systolic 96–118; BP diastolic 54–67
[2021-04-02] MEDS: METHOCARBAMOL 500 MG TABLET PO PRN ×2 (03:55→20:30)
[2021-04-02] MEDS: OXYcodone IR 5MG TABLET PO PRN ×3 (03:56→20:32)
[2021-04-02 04:53] LABS: MEAN CORPUSCULAR HEMOGLOBIN 29.5 pg (27.5-34.5); MEAN CORPUSCULAR HGB CONC 34.3 g/dL (33.2-36.2); MEAN PLATELET VOLUME 8.6 fL (7.4-10.4); RED BLOOD COUNT 2.22 x10^6/uL (4.38-5.82); RED CELL DISTRIBUTION WIDTH 15.2 % (9.4-14.8)
[2021-04-02 05:01] LABS: PLATELET COUNT 9 x10^3/uL (130-400)
[2021-04-02 05:06] LABS: ALANINE AMINOTRANSFERASE 43 U/L (12-78); ALBUMIN 2.7 g/dL (3.4-5.0); ANION GAP 6 mmol/L (5-15); CALCIUM 8.1 mg/dL (8.5-10.1); CHLORIDE 103 mmol/L (98-107); CREATININE 0.77 mg/dL (0.7-1.3)
[2021-04-02 05:09] LABS: ALKALINE PHOSPHATASE 107 U/L (45-117); BILIRUBIN,TOTAL 1.8 mg/dL (0.2-1.0); TOTAL PROTEIN 6.4 g/dL (6.4-8.2)
[2021-04-02 05:52] LABS: BAND#(MANUAL) 0.02 x10^3/uL; BANDS%(MANUAL) 4 % (0-7); LYMPH#(MANUAL) 0.27 x10^3/uL (1-3.4); LYMPHS% (MANUAL) 68 % (22-44); MONOS#(MANUAL) 0.01 x10^3/uL (0.3-2.7); MONOS% (MANUAL) 3 % (2-9); SEGS% (MANUAL) 25 % (42-75)
[2021-04-02 05:54] LABS: ANISOCYTOSIS 1+; OVALOCYTES 1+; POLYCHROMASIA 1+; SPHEROCYTES 1+
[2021-04-02 05:55] LABS: <PLATELET ESTIMATE> DECREASED; <PLT MORPHOLOGY> QNS FOR PLT MORPH; PMNS WITH VACUOLES 1+; TOXIC GRAN 1+
[2021-04-02] MEDS: OMEPRAZOLE 20 MG CAPSULE.DR PO SCH ×2 (06:28→16:38)
[2021-04-02] MEDS: FLUCONAZOLE 200 MG TABLET PO SCH (08:25)
[2021-04-02] MEDS: MULTIVITS,STRESS FORMULA 1 TABLET PO SCH (08:26)
[2021-04-02] MEDS: ASCORBIC ACID 500 MG TABLET PO SCH ×2 (08:26→16:38)
[2021-04-02] MEDS: ACYCLOVIR 400 MG TABLET PO SCH ×2 (08:26→20:31)
[2021-04-02] MEDS: CHOLECALCIFEROL 5,000u TAB PO SCH (08:26)
[2021-04-02] MEDS: ZINC SULFATE 220 MG CAPSULE PO SCH (08:26)
[2021-04-02] MEDS: ALLOPURINOL 300 MG TABLET PO SCH (08:26)
[2021-04-02] MEDS: DOCUSATE 100 MG CAPSULE PO SCH ×2 (08:27→20:31)
[2021-04-02] MEDS: DIPHENHYDRAMINE 25 MG CAPSULE PO PRN (12:33)
[2021-04-02] MEDS: ACETAMINOPHEN 325 MG TABLET PO PRN (12:33)
[2021-04-02] MEDS: LEVOFLOXACIN 500 MG TABLET PO SCH (18:06)
[2021-04-02] MEDS: LORazepam 0.5MG TABLET PO PRN (20:31)
[2021-04-03] VITALS (8 sets, daily range): BP systolic 93–133; BP diastolic 55–66
[2021-04-03] MEDS: OXYcodone IR 5MG TABLET PO PRN ×3 (00:56→21:46)
[2021-04-03] MEDS: OMEPRAZOLE 20 MG CAPSULE.DR PO SCH ×2 (05:13→16:48)
[2021-04-03 05:39] LABS: MEAN CORPUSCULAR HEMOGLOBIN 29.7 pg (27.5-34.5); MEAN CORPUSCULAR HGB CONC 34.4 g/dL (33.2-36.2); MEAN PLATELET VOLUME 8.5 fL (7.4-10.4); RED BLOOD COUNT 2.43 x10^6/uL (4.38-5.82); RED CELL DISTRIBUTION WIDTH 15.6 % (9.4-14.8)
[2021-04-03 05:48] LABS: PLATELET COUNT 7 x10^3/uL (130-400)
[2021-04-03 05:56] LABS: ALBUMIN 2.8 g/dL (3.4-5.0); ANION GAP 5 mmol/L (5-15); CALCIUM 8.2 mg/dL (8.5-10.1); CHLORIDE 100 mmol/L (98-107)
[2021-04-03 05:59] LABS: ALANINE AMINOTRANSFERASE 42 U/L (12-78); ALKALINE PHOSPHATASE 110 U/L (45-117); BILIRUBIN,TOTAL 1.8 mg/dL (0.2-1.0); CREATININE 0.81 mg/dL (0.7-1.3)
[2021-04-03 06:20] LABS: BAND#(MANUAL) 0.01 x10^3/uL; BANDS%(MANUAL) 1 % (0-7); BASOS#(MANUAL) 0.01 x10^3/uL (0-0.1); BASOS% (MANUAL) 1 % (0-1); EOS#(MANUAL) 0.01 x10^3/uL (0.0-0.4); EOS% (MANUAL) 1 % (1-7); LYMPH#(MANUAL) 0.36 x10^3/uL (1-3.4); LYMPHS% (MANUAL) 71 % (22-44); SEG#(MANUAL) 0.13 x10^3/uL (1.8-6.8); SEGS% (MANUAL) 26 % (42-75)
[2021-04-03 06:21] LABS: <PLATELET ESTIMATE> DECREASED; ANISOCYTOSIS 1+; OVALOCYTES 1+; POLYCHROMASIA 1+; SPHEROCYTES 1+
[2021-04-03 06:22] LABS: <PLT MORPHOLOGY> QNS FOR PLT MORPH
[2021-04-03] MEDS: FLUCONAZOLE 200 MG TABLET PO SCH (08:26)
[2021-04-03] MEDS: MULTIVITS,STRESS FORMULA 1 TABLET PO SCH (08:26)
[2021-04-03] MEDS: ACYCLOVIR 400 MG TABLET PO SCH ×2 (08:26→21:44)
[2021-04-03] MEDS: ZINC SULFATE 220 MG CAPSULE PO SCH (08:26)
[2021-04-03] MEDS: CHOLECALCIFEROL 5,000u TAB PO SCH (08:26)
[2021-04-03] MEDS: ALLOPURINOL 300 MG TABLET PO SCH (08:26)
[2021-04-03] MEDS: ASCORBIC ACID 500 MG TABLET PO SCH ×2 (08:26→16:48)
[2021-04-03] MEDS: DOCUSATE 100 MG CAPSULE PO SCH ×2 (08:27→21:00)
[2021-04-03] MEDS: ACETAMINOPHEN 325 MG TABLET PO PRN (11:25)
[2021-04-03] MEDS: DIPHENHYDRAMINE 25 MG CAPSULE PO PRN (11:25)
[2021-04-03] MEDS: LORazepam 0.5MG TABLET PO PRN ×2 (12:00→22:02)
[2021-04-03] MEDS: LEVOFLOXACIN 500 MG TABLET PO SCH (16:48)
[2021-04-03] MEDS: METHOCARBAMOL 500 MG TABLET PO PRN (22:02)
[2021-04-04] VITALS (9 sets, daily range): BP systolic 93–113; BP diastolic 56–67
[2021-04-04 04:29] LABS: MEAN CORPUSCULAR HEMOGLOBIN 29.4 pg (27.5-34.5); MEAN CORPUSCULAR HGB CONC 34.2 g/dL (33.2-36.2); MEAN PLATELET VOLUME 8.3 fL (7.4-10.4); RED BLOOD COUNT 2.22 x10^6/uL (4.38-5.82); RED CELL DISTRIBUTION WIDTH 15.5 % (9.4-14.8)
[2021-04-04 04:38] LABS: PLATELET COUNT 8 x10^3/uL (130-400)
[2021-04-04 04:41] LABS: ALBUMIN 2.6 g/dL (3.4-5.0); ANION GAP 5 mmol/L (5-15); CHLORIDE 101 mmol/L (98-107)
[2021-04-04 04:45] LABS: ALANINE AMINOTRANSFERASE 32 U/L (12-78); ALKALINE PHOSPHATASE 100 U/L (45-117); BILIRUBIN,TOTAL 1.4 mg/dL (0.2-1.0); CREATININE 0.87 mg/dL (0.7-1.3); TOTAL PROTEIN 6.7 g/dL (6.4-8.2)
[2021-04-04 05:12] LABS: <PLATELET ESTIMATE> DECREASED; <PLT MORPHOLOGY> QNS FOR PLT MORPH; ANISOCYTOSIS 1+; BANDS%(MANUAL) 1 % (0-7); BASOS% (MANUAL) 1 % (0-1); LYMPHS% (MANUAL) 76 % (22-44); MONOS% (MANUAL) 1 % (2-9); OVALOCYTES 1+; POLYCHROMASIA 1+; SEG#(MANUAL) 0.08 x10^3/uL (1.8-6.8); SEGS% (MANUAL) 21 % (42-75); SPHEROCYTES 1+; TOXIC GRAN 1+
[2021-04-04] MEDS: OMEPRAZOLE 20 MG CAPSULE.DR PO SCH ×2 (06:13→16:22)
[2021-04-04] MEDS: OXYcodone IR 5MG TABLET PO PRN ×2 (06:17→21:05)
[2021-04-04] MEDS: ACYCLOVIR 400 MG TABLET PO SCH ×2 (08:23→21:05)
[2021-04-04] MEDS: MULTIVITS,STRESS FORMULA 1 TABLET PO SCH (08:24)
[2021-04-04] MEDS: ZINC SULFATE 220 MG CAPSULE PO SCH (08:24)
[2021-04-04] MEDS: CHOLECALCIFEROL 5,000u TAB PO SCH (08:24)
[2021-04-04] MEDS: ASCORBIC ACID 500 MG TABLET PO SCH ×2 (08:24→16:22)
[2021-04-04] MEDS: DOCUSATE 100 MG CAPSULE PO SCH ×2 (08:24→21:07)
[2021-04-04] MEDS: FLUCONAZOLE 200 MG TABLET PO SCH (08:24)
[2021-04-04] MEDS: ALLOPURINOL 300 MG TABLET PO SCH (08:24)
[2021-04-04] MEDS: DIPHENHYDRAMINE 25 MG CAPSULE PO PRN (10:05)
[2021-04-04] MEDS: ACETAMINOPHEN 325 MG TABLET PO PRN (10:05)
[2021-04-04] MEDS ORDERED: LORazepam 1MG TABLET ONE (10:11)
[2021-04-04] MEDS: METHOCARBAMOL 500 MG TABLET PO PRN (10:15)
[2021-04-04] MEDS: LORazepam 0.5MG TABLET PO PRN ×2 (10:18→21:07)
[2021-04-04] MEDS: LEVOFLOXACIN 500 MG TABLET PO SCH (16:22)
[2021-04-05] VITALS (12 sets, daily range): BP systolic 101–118; BP diastolic 50–70
[2021-04-05] MEDS: METHOCARBAMOL 500 MG TABLET PO PRN ×2 (00:02→22:51)
[2021-04-05] MEDS: OXYcodone IR 5MG TABLET PO PRN ×2 (03:39→20:12)
[2021-04-05] MEDS: LORazepam 0.5MG TABLET PO PRN ×2 (03:39→20:12)
[2021-04-05] MEDS: OMEPRAZOLE 20 MG CAPSULE.DR PO SCH ×2 (03:41→15:59)
[2021-04-05 06:27] LABS: MEAN CORPUSCULAR HEMOGLOBIN 29.6 pg (27.5-34.5); MEAN CORPUSCULAR HGB CONC 34.6 g/dL (33.2-36.2); MEAN PLATELET VOLUME 8.5 fL (7.4-10.4); RED BLOOD COUNT 2.32 x10^6/uL (4.38-5.82); RED CELL DISTRIBUTION WIDTH 15.2 % (9.4-14.8)
[2021-04-05 06:30] LABS: PLATELET COUNT 8 x10^3/uL (130-400)
[2021-04-05 06:33] LABS: ALBUMIN 2.6 g/dL (3.4-5.0); ANION GAP 6 mmol/L (5-15); CALCIUM 8.5 mg/dL (8.5-10.1); CHLORIDE 102 mmol/L (98-107)
[2021-04-05 06:37] LABS: ALANINE AMINOTRANSFERASE 31 U/L (12-78); ALKALINE PHOSPHATASE 108 U/L (45-117); BILIRUBIN,TOTAL 1.7 mg/dL (0.2-1.0); CREATININE 0.89 mg/dL (0.7-1.3); TOTAL PROTEIN 6.8 g/dL (6.4-8.2)
[2021-04-05 08:00] LABS: BASOS% (MANUAL) 1 % (0-1); EOS% (MANUAL) 1 % (1-7); LYMPH#(MANUAL) 0.24 x10^3/uL (1-3.4); LYMPHS% (MANUAL) 80 % (22-44); SEG#(MANUAL) 0.05 x10^3/uL (1.8-6.8); SEGS% (MANUAL) 18 % (42-75)
[2021-04-05 08:01] LABS: ANISOCYTOSIS 1+; OVALOCYTES 1+; POLYCHROMASIA 1+
[2021-04-05 08:02] LABS: <PLATELET ESTIMATE> DECREASED; <PLT MORPHOLOGY> QNS FOR PLT MORPH
[2021-04-05] MEDS: ACYCLOVIR 400 MG TABLET PO SCH ×2 (08:33→20:12)
[2021-04-05] MEDS: ALLOPURINOL 300 MG TABLET PO SCH (08:33)
[2021-04-05] MEDS: MULTIVITS,STRESS FORMULA 1 TABLET PO SCH (08:33)
[2021-04-05] MEDS: FLUCONAZOLE 200 MG TABLET PO SCH (08:33)
[2021-04-05] MEDS: MAGNESIUM HYDROXIDE 8%, 30ML UDC PO PRN (08:33)
[2021-04-05] MEDS: CHOLECALCIFEROL 5,000u TAB PO SCH (08:33)
[2021-04-05] MEDS: ASCORBIC ACID 500 MG TABLET PO SCH ×2 (08:33→15:58)
[2021-04-05] MEDS: DOCUSATE 100 MG CAPSULE PO SCH ×2 (08:33→20:12)
[2021-04-05] MEDS: ACETAMINOPHEN 325 MG TABLET PO PRN (08:33)
[2021-04-05] MEDS: ZINC SULFATE 220 MG CAPSULE PO SCH (08:33)
[2021-04-05] MEDS: DIPHENHYDRAMINE 25 MG CAPSULE PO PRN (08:34)
[2021-04-05] MEDS: LEVOFLOXACIN 500 MG TABLET PO SCH (15:59)
[2021-04-06] VITALS (7 sets, daily range): BP systolic 101–115; BP diastolic 61–66
[2021-04-06] MEDS: OXYcodone IR 5MG TABLET PO PRN ×3 (01:48→21:33)
[2021-04-06] MEDS: LORazepam 0.5MG TABLET PO PRN ×2 (05:09→19:28)
[2021-04-06 05:10] LABS: MEAN CORPUSCULAR HEMOGLOBIN 29.5 pg (27.5-34.5); MEAN CORPUSCULAR HGB CONC 34.4 g/dL (33.2-36.2); MEAN PLATELET VOLUME 7.9 fL (7.4-10.4); RED BLOOD COUNT 2.53 x10^6/uL (4.38-5.82); RED CELL DISTRIBUTION WIDTH 14.8 % (9.4-14.8)
[2021-04-06 05:23] LABS: ALANINE AMINOTRANSFERASE 30 U/L (12-78); ALBUMIN 2.7 g/dL (3.4-5.0); ANION GAP 6 mmol/L (5-15); CALCIUM 8.5 mg/dL (8.5-10.1); CHLORIDE 103 mmol/L (98-107)
[2021-04-06 05:26] LABS: ALKALINE PHOSPHATASE 107 U/L (45-117); BILIRUBIN,TOTAL 1.6 mg/dL (0.2-1.0); CREATININE 0.77 mg/dL (0.7-1.3)
[2021-04-06] MEDS: OMEPRAZOLE 20 MG CAPSULE.DR PO SCH ×2 (05:29→16:27)
[2021-04-06 06:07] LABS: PLATELET COUNT 9 x10^3/uL (130-400)
[2021-04-06 06:14] LABS: SEG#(MANUAL) 0.06 x10^3/uL (1.8-6.8); SEGS% (MANUAL) 15 % (42-75)
[2021-04-06 06:15] LABS: BANDS%(MANUAL) 1 % (0-7); LYMPH#(MANUAL) 0.33 x10^3/uL (1-3.4); LYMPHS% (MANUAL) 83 % (22-44); MONOS% (MANUAL) 1 % (2-9)
[2021-04-06 06:16] LABS: ANISOCYTOSIS 1+; POLYCHROMASIA 1+
[2021-04-06 06:17] LABS: <PLATELET ESTIMATE> DECREASED; <PLT MORPHOLOGY> QNS FOR PLT MORPH; OVALOCYTES 1+
[2021-04-06] MEDS: ALLOPURINOL 300 MG TABLET PO SCH (07:38)
[2021-04-06] MEDS: ACYCLOVIR 400 MG TABLET PO SCH ×2 (07:39→20:41)
[2021-04-06] MEDS: MULTIVITS,STRESS FORMULA 1 TABLET PO SCH (07:39)
[2021-04-06] MEDS: CHOLECALCIFEROL 5,000u TAB PO SCH (07:39)
[2021-04-06] MEDS: FLUCONAZOLE 200 MG TABLET PO SCH (07:39)
[2021-04-06] MEDS: DOCUSATE 100 MG CAPSULE PO SCH ×2 (07:39→20:41)
[2021-04-06] MEDS: ASCORBIC ACID 500 MG TABLET PO SCH ×2 (07:39→16:27)
[2021-04-06] MEDS: ZINC SULFATE 220 MG CAPSULE PO SCH (07:39)
[2021-04-06] MEDS: DIPHENHYDRAMINE 25 MG CAPSULE PO PRN (09:28)
[2021-04-06] MEDS: ACETAMINOPHEN 325 MG TABLET PO PRN (09:28)
[2021-04-06] MEDS: LEVOFLOXACIN 500 MG TABLET PO SCH (16:27)
[2021-04-06] MEDS: METHOCARBAMOL 500 MG TABLET PO PRN (21:26)
[2021-04-07] VITALS (8 sets, daily range): BP systolic 111–121; BP diastolic 56–70
[2021-04-07] MEDS ORDERED: LORazepam 1MG TABLET ONE (03:56)
[2021-04-07] MEDS: OXYcodone IR 5MG TABLET PO PRN ×4 (03:58→21:22)
[2021-04-07] MEDS: LORazepam 0.5MG TABLET PO PRN ×3 (03:58→21:22)
[2021-04-07 05:08] LABS: MEAN CORPUSCULAR HEMOGLOBIN 29.8 pg (27.5-34.5); MEAN CORPUSCULAR HGB CONC 34.4 g/dL (33.2-36.2); MEAN PLATELET VOLUME 8.6 fL (7.4-10.4); RED BLOOD COUNT 2.44 x10^6/uL (4.38-5.82); RED CELL DISTRIBUTION WIDTH 15.1 % (9.4-14.8)
[2021-04-07 05:17] LABS: ALBUMIN 2.5 g/dL (3.4-5.0); ANION GAP 5 mmol/L (5-15); CHLORIDE 102 mmol/L (98-107)
[2021-04-07 05:21] LABS: ALANINE AMINOTRANSFERASE 24 U/L (12-78); ALKALINE PHOSPHATASE 104 U/L (45-117); BILIRUBIN,TOTAL 1.1 mg/dL (0.2-1.0); CREATININE 0.86 mg/dL (0.7-1.3); TOTAL PROTEIN 6.8 g/dL (6.4-8.2)
[2021-04-07 05:25] LABS: PLATELET COUNT 8 x10^3/uL (130-400)
[2021-04-07] MEDS: OMEPRAZOLE 20 MG CAPSULE.DR PO SCH ×2 (06:02→16:12)
[2021-04-07 06:11] LABS: EOS#(MANUAL) 0.01 x10^3/uL (0.0-0.4); EOS% (MANUAL) 1 % (1-7); LYMPH#(MANUAL) 0.46 x10^3/uL (1-3.4); LYMPHS% (MANUAL) 91 % (22-44); MONOS#(MANUAL) 0.01 x10^3/uL (0.3-2.7); MONOS% (MANUAL) 1 % (2-9); REACTIVE LYMPHS # (MANUAL) 0.01 x10^3/uL (0-0); REACTIVE LYMPHS % (MANUAL) 1 % (0-0); SEG#(MANUAL) 0.03 x10^3/uL (1.8-6.8); SEGS% (MANUAL) 6 % (42-75)
[2021-04-07 06:13] LABS: <PLATELET ESTIMATE> DECREASED; ANISOCYTOSIS 1+; OVALOCYTES 1+; POLYCHROMASIA 1+
[2021-04-07 06:14] LABS: <PLT MORPHOLOGY> NORMAL PLT MORPH
[2021-04-07] MEDS: ZINC SULFATE 220 MG CAPSULE PO SCH (08:07)
[2021-04-07] MEDS: ASCORBIC ACID 500 MG TABLET PO SCH ×2 (08:07→16:12)
[2021-04-07] MEDS: MULTIVITS,STRESS FORMULA 1 TABLET PO SCH (08:07)
[2021-04-07] MEDS: DOCUSATE 100 MG CAPSULE PO SCH ×2 (08:07→21:22)
[2021-04-07] MEDS: ACYCLOVIR 400 MG TABLET PO SCH ×2 (08:08→21:22)
[2021-04-07] MEDS: FLUCONAZOLE 200 MG TABLET PO SCH (08:08)
[2021-04-07] MEDS: CHOLECALCIFEROL 5,000u TAB PO SCH (08:08)
[2021-04-07] MEDS: ALLOPURINOL 300 MG TABLET PO SCH (08:09)
[2021-04-07] MEDS: DIPHENHYDRAMINE 25 MG CAPSULE PO PRN (11:38)
[2021-04-07] MEDS: ACETAMINOPHEN 325 MG TABLET PO PRN (11:38)
[2021-04-07] MEDS: LEVOFLOXACIN 500 MG TABLET PO SCH (16:11)
[2021-04-08] VITALS (7 sets, daily range): BP systolic 102–122; BP diastolic 49–69
[2021-04-08] MEDS: OXYcodone IR 5MG TABLET PO PRN ×2 (02:09→20:18)
[2021-04-08] MEDS: METHOCARBAMOL 500 MG TABLET PO PRN ×2 (02:09→20:18)
[2021-04-08 04:31] LABS: MEAN CORPUSCULAR HEMOGLOBIN 29.8 pg (27.5-34.5); MEAN CORPUSCULAR HGB CONC 34.6 g/dL (33.2-36.2); MEAN PLATELET VOLUME 8.2 fL (7.4-10.4); RED BLOOD COUNT 2.63 x10^6/uL (4.38-5.82); RED CELL DISTRIBUTION WIDTH 15.5 % (9.4-14.8)
[2021-04-08 04:36] LABS: PLATELET COUNT 11 x10^3/uL (130-400)
[2021-04-08 04:44] LABS: CHLORIDE 100 mmol/L (98-107)
[2021-04-08 04:50] LABS: ALANINE AMINOTRANSFERASE 22 U/L (12-78); ALBUMIN 2.8 g/dL (3.4-5.0); ALKALINE PHOSPHATASE 101 U/L (45-117); ANION GAP 7 mmol/L (5-15); BILIRUBIN,TOTAL 1.4 mg/dL (0.2-1.0); CALCIUM 8.5 mg/dL (8.5-10.1); CREATININE 0.74 mg/dL (0.7-1.3); TOTAL PROTEIN 7.2 g/dL (6.4-8.2)
[2021-04-08] MEDS: OMEPRAZOLE 20 MG CAPSULE.DR PO SCH ×2 (05:29→16:52)
[2021-04-08 05:52] LABS: EOS#(MANUAL) 0.01 x10^3/uL (0.0-0.4); EOS% (MANUAL) 1 % (1-7); LYMPH#(MANUAL) 0.46 x10^3/uL (1-3.4); LYMPHS% (MANUAL) 92 % (22-44); MONOS#(MANUAL) 0.01 x10^3/uL (0.3-2.7); MONOS% (MANUAL) 1 % (2-9); SEG#(MANUAL) 0.03 x10^3/uL (1.8-6.8); SEGS% (MANUAL) 6 % (42-75)
[2021-04-08 05:53] LABS: ANISOCYTOSIS 1+; OVALOCYTES 1+; POLYCHROMASIA 1+
[2021-04-08 05:54] LABS: <PLATELET ESTIMATE> DECREASED
[2021-04-08 05:55] LABS: <PLT MORPHOLOGY> QNS FOR PLT MORPH
[2021-04-08] MEDS: maalox/diphenh/lido/sucralfate 5 ML PO PRN (06:21)
[2021-04-08] MEDS: ASCORBIC ACID 500 MG TABLET PO SCH ×2 (08:00→16:52)
[2021-04-08] MEDS: ACYCLOVIR 400 MG TABLET PO SCH ×2 (09:00→20:18)
[2021-04-08] MEDS: FLUCONAZOLE 200 MG TABLET PO SCH (09:00)
[2021-04-08] MEDS: MULTIVITS,STRESS FORMULA 1 TABLET PO SCH (09:00)
[2021-04-08] MEDS: CHOLECALCIFEROL 5,000u TAB PO SCH (09:00)
[2021-04-08] MEDS: ZINC SULFATE 220 MG CAPSULE PO SCH (09:00)
[2021-04-08] MEDS: DOCUSATE 100 MG CAPSULE PO SCH ×2 (09:00→20:18)
[2021-04-08] MEDS: ALLOPURINOL 300 MG TABLET PO SCH (09:00)
[2021-04-08] MEDS ORDERED: FENTANYL PF 100 MCG/2ML ONE (11:24)
[2021-04-08] MEDS ORDERED: MIDAZOLAM 1 MG/ML, 5ML ONE (11:24)
[2021-04-08] MEDS ORDERED: FLUMAZENIL 0.1 MG/1 ML, 5ML ONE (11:24)
[2021-04-08] MEDS ORDERED: NALOXONE 1 MG/ML, 2ML ONE (11:25)
[2021-04-08] MEDS: DIPHENHYDRAMINE 25 MG CAPSULE PO PRN (14:19)
[2021-04-08] MEDS: ACETAMINOPHEN 325 MG TABLET PO PRN (14:19)
[2021-04-08] MEDS: LORazepam 0.5MG TABLET PO PRN ×2 (15:05→21:21)
[2021-04-08] MEDS: LEVOFLOXACIN 500 MG TABLET PO SCH (16:52)
[2021-04-09] VITALS (11 sets, daily range): BP systolic 101–125; BP diastolic 6–63
[2021-04-09] MEDS: morphine SULFATE 10 MG/ML, 1ML IVPush PRN ×2 (01:06→01:37)
[2021-04-09] MEDS: maalox/diphenh/lido/sucralfate 5 ML PO PRN (01:14)
[2021-04-09] MEDS ORDERED: MORPHINE SULFATE 4 MG/ML, 1ML ONE (01:32)
[2021-04-09] MEDS: OXYcodone IR 5MG TABLET PO PRN ×4 (03:18→21:31)
[2021-04-09 04:41] LABS: MEAN CORPUSCULAR HEMOGLOBIN 29.2 pg (27.5-34.5); MEAN CORPUSCULAR HGB CONC 33.7 g/dL (33.2-36.2); RED BLOOD COUNT 2.39 x10^6/uL (4.38-5.82); RED CELL DISTRIBUTION WIDTH 15.1 % (9.4-14.8)
[2021-04-09 04:48] LABS: PLATELET COUNT 8 x10^3/uL (130-400)
[2021-04-09 04:50] LABS: ALBUMIN 2.8 g/dL (3.4-5.0); ANION GAP 5 mmol/L (5-15); CALCIUM 8.7 mg/dL (8.5-10.1); CHLORIDE 102 mmol/L (98-107)
[2021-04-09 04:55] LABS: ALANINE AMINOTRANSFERASE 20 U/L (12-78); ALKALINE PHOSPHATASE 99 U/L (45-117); BILIRUBIN,TOTAL 1.4 mg/dL (0.2-1.0); CREATININE 0.84 mg/dL (0.7-1.3)
[2021-04-09] MEDS: OMEPRAZOLE 20 MG CAPSULE.DR PO SCH ×2 (05:00→16:27)
[2021-04-09 05:29] LABS: BAND#(MANUAL) 0.01 x10^3/uL; BANDS%(MANUAL) 1 % (0-7); BASOS#(MANUAL) 0.01 x10^3/uL (0-0.1); BASOS% (MANUAL) 1 % (0-1); LYMPH#(MANUAL) 0.44 x10^3/uL (1-3.4); LYMPHS% (MANUAL) 87 % (22-44); MONOS#(MANUAL) 0.02 x10^3/uL (0.3-2.7); MONOS% (MANUAL) 3 % (2-9); SEG#(MANUAL) 0.04 x10^3/uL (1.8-6.8); SEGS% (MANUAL) 8 % (42-75)
[2021-04-09 05:31] LABS: ANISOCYTOSIS 1+; OVALOCYTES 1+; POLYCHROMASIA 1+
[2021-04-09 05:32] LABS: <PLATELET ESTIMATE> DECREASED; <PLT MORPHOLOGY> QNS FOR PLT MORPH
[2021-04-09] MEDS: ACYCLOVIR 400 MG TABLET PO SCH ×2 (09:14→21:30)
[2021-04-09] MEDS: ALLOPURINOL 300 MG TABLET PO SCH (09:15)
[2021-04-09] MEDS: DOCUSATE 100 MG CAPSULE PO SCH ×2 (09:15→21:30)
[2021-04-09] MEDS: FLUCONAZOLE 200 MG TABLET PO SCH (09:15)
[2021-04-09] MEDS: CHOLECALCIFEROL 5,000u TAB PO SCH (09:15)
[2021-04-09] MEDS: LORazepam 0.5MG TABLET PO PRN ×2 (09:16→21:31)
[2021-04-09] MEDS: ASCORBIC ACID 500 MG TABLET PO SCH ×2 (09:16→16:26)
[2021-04-09] MEDS: MULTIVITS,STRESS FORMULA 1 TABLET PO SCH (09:19)
[2021-04-09] MEDS: ZINC SULFATE 220 MG CAPSULE PO SCH (09:19)
[2021-04-09] MEDS: DIPHENHYDRAMINE 25 MG CAPSULE PO PRN (10:12)
[2021-04-09] MEDS: LEVOFLOXACIN 500 MG TABLET PO SCH (16:27)
[2021-04-10 00:28] VITALS: BP 114/57
[2021-04-10] MEDS: METHOCARBAMOL 500 MG TABLET PO PRN (00:36)
[2021-04-10] MEDS: OXYcodone IR 5MG TABLET PO PRN ×4 (01:35→22:23)
[2021-04-10 04:59] LABS: MEAN CORPUSCULAR HEMOGLOBIN 29.4 pg (27.5-34.5); MEAN CORPUSCULAR HGB CONC 33.8 g/dL (33.2-36.2); MEAN PLATELET VOLUME 7.9 fL (7.4-10.4); RED CELL DISTRIBUTION WIDTH 15.2 % (9.4-14.8)
[2021-04-10 05:10] LABS: ALANINE AMINOTRANSFERASE 15 U/L (12-78); ALBUMIN 2.9 g/dL (3.4-5.0); ANION GAP 4 mmol/L (5-15); CALCIUM 8.3 mg/dL (8.5-10.1); CHLORIDE 101 mmol/L (98-107); CREATININE 0.79 mg/dL (0.7-1.3); PLATELET COUNT 11 x10^3/uL (130-400)
[2021-04-10 05:13] LABS: ALKALINE PHOSPHATASE 99 U/L (45-117); BILIRUBIN,TOTAL 1.6 mg/dL (0.2-1.0)
[2021-04-10 05:45] LABS: BAND#(MANUAL) 0.01 x10^3/uL; BANDS%(MANUAL) 1 % (0-7); SEG#(MANUAL) 0.05 x10^3/uL (1.8-6.8); SEGS% (MANUAL) 10 % (42-75)
[2021-04-10 05:46] LABS: ANISOCYTOSIS 1+; LYMPH#(MANUAL) 0.43 x10^3/uL (1-3.4); LYMPHS% (MANUAL) 85 % (22-44); MONOS#(MANUAL) 0.02 x10^3/uL (0.3-2.7); MONOS% (MANUAL) 4 % (2-9); POLYCHROMASIA 1+
[2021-04-10 05:48] LABS: <PLATELET ESTIMATE> DECREASED; <PLT MORPHOLOGY> QNS FOR PLT MORPH; OVALOCYTES 1+
[2021-04-10] MEDS: OMEPRAZOLE 20 MG CAPSULE.DR PO SCH ×2 (06:05→16:56)
[2021-04-10 07:09] VITALS: BP 105/54
[2021-04-10] MEDS: MULTIVITS,STRESS FORMULA 1 TABLET PO SCH (08:16)
[2021-04-10] MEDS: ALLOPURINOL 300 MG TABLET PO SCH (08:16)
[2021-04-10] MEDS: CHOLECALCIFEROL 5,000u TAB PO SCH (08:16)
[2021-04-10] MEDS: ZINC SULFATE 220 MG CAPSULE PO SCH (08:16)
[2021-04-10] MEDS: ASCORBIC ACID 500 MG TABLET PO SCH ×2 (08:16→16:52)
[2021-04-10] MEDS: ACYCLOVIR 400 MG TABLET PO SCH ×2 (08:17→20:40)
[2021-04-10] MEDS: DOCUSATE 100 MG CAPSULE PO SCH ×2 (08:17→20:40)
[2021-04-10] MEDS: FLUCONAZOLE 200 MG TABLET PO SCH (08:17)
[2021-04-10 13:27] VITALS: BP 111/64
[2021-04-10] MEDS: LORazepam 0.5MG TABLET PO PRN ×2 (14:13→22:22)
[2021-04-10] MEDS: LEVOFLOXACIN 500 MG TABLET PO SCH (16:52)
[2021-04-10 19:26] VITALS: BP 104/50
[2021-04-10] MEDS: morphine SULFATE 10 MG/ML, 1ML IVPush PRN (19:45)
[2021-04-11] VITALS (7 sets, daily range): BP systolic 100–119; BP diastolic 45–67
[2021-04-11] MEDS: OXYcodone IR 5MG TABLET PO PRN ×3 (03:06→17:44)
[2021-04-11] MEDS: METHOCARBAMOL 500 MG TABLET PO PRN ×2 (03:06→20:47)
[2021-04-11 05:23] LABS: MEAN CORPUSCULAR HEMOGLOBIN 29.6 pg (27.5-34.5); MEAN CORPUSCULAR HGB CONC 34.3 g/dL (33.2-36.2); MEAN PLATELET VOLUME 8.5 fL (7.4-10.4); RED BLOOD COUNT 2.52 x10^6/uL (4.38-5.82); RED CELL DISTRIBUTION WIDTH 15.4 % (9.4-14.8)
[2021-04-11 05:24] LABS: PLATELET COUNT 7 x10^3/uL (130-400)
[2021-04-11 05:37] LABS: ALANINE AMINOTRANSFERASE 15 U/L (12-78); ALBUMIN 2.8 g/dL (3.4-5.0); ANION GAP 6 mmol/L (5-15); CALCIUM 8.5 mg/dL (8.5-10.1); CHLORIDE 100 mmol/L (98-107); CREATININE 0.84 mg/dL (0.7-1.3)
[2021-04-11 05:39] LABS: ALKALINE PHOSPHATASE 98 U/L (45-117); BILIRUBIN,TOTAL 1.5 mg/dL (0.2-1.0); TOTAL PROTEIN 7.2 g/dL (6.4-8.2)
[2021-04-11] MEDS: OMEPRAZOLE 20 MG CAPSULE.DR PO SCH ×2 (05:52→15:55)
[2021-04-11 06:18] LABS: SEG#(MANUAL) 0.05 x10^3/uL (1.8-6.8); SEGS% (MANUAL) 12 % (42-75)
[2021-04-11 06:24] LABS: BANDS%(MANUAL) 1 % (0-7); BASOS% (MANUAL) 1 % (0-1); LYMPH#(MANUAL) 0.32 x10^3/uL (1-3.4); LYMPHS% (MANUAL) 81 % (22-44); MONOS#(MANUAL) 0.02 x10^3/uL (0.3-2.7); MONOS% (MANUAL) 5 % (2-9)
[2021-04-11 06:25] LABS: <PLATELET ESTIMATE> DECREASED; <PLT MORPHOLOGY> NORMAL PLT MORPH; ANISOCYTOSIS 1+; OVALOCYTES 1+; POLYCHROMASIA 1+
[2021-04-11] MEDS: ACYCLOVIR 400 MG TABLET PO SCH ×2 (08:32→20:47)
[2021-04-11] MEDS: ALLOPURINOL 300 MG TABLET PO SCH (08:32)
[2021-04-11] MEDS: ZINC SULFATE 220 MG CAPSULE PO SCH (08:32)
[2021-04-11] MEDS: MULTIVITS,STRESS FORMULA 1 TABLET PO SCH (08:32)
[2021-04-11] MEDS: DOCUSATE 100 MG CAPSULE PO SCH ×2 (08:32→20:47)
[2021-04-11] MEDS: FLUCONAZOLE 200 MG TABLET PO SCH (08:33)
[2021-04-11] MEDS: CHOLECALCIFEROL 5,000u TAB PO SCH (08:33)
[2021-04-11] MEDS: ASCORBIC ACID 500 MG TABLET PO SCH ×2 (08:34→16:38)
[2021-04-11] MEDS: ACETAMINOPHEN 325 MG TABLET PO PRN (09:27)
[2021-04-11] MEDS: DIPHENHYDRAMINE 25 MG CAPSULE PO PRN (09:27)
[2021-04-11] MEDS: LEVOFLOXACIN 500 MG TABLET PO SCH (15:55)
[2021-04-11] MEDS: LORazepam 0.5MG TABLET PO PRN (17:44)
[2021-04-11] MEDS: maalox/diphenh/lido/sucralfate 5 ML PO PRN (23:14)
[2021-04-12 00:23] VITALS: BP 117/65
[2021-04-12] MEDS: LORazepam 0.5MG TABLET PO PRN (00:32)
[2021-04-12] MEDS: OXYcodone IR 5MG TABLET PO PRN ×3 (02:09→19:39)
[2021-04-12 04:54] LABS: MEAN CORPUSCULAR HEMOGLOBIN 29.7 pg (27.5-34.5); MEAN CORPUSCULAR HGB CONC 34.1 g/dL (33.2-36.2); MEAN PLATELET VOLUME 8.6 fL (7.4-10.4); RED BLOOD COUNT 2.43 x10^6/uL (4.38-5.82); RED CELL DISTRIBUTION WIDTH 15.7 % (9.4-14.8)
[2021-04-12 04:57] LABS: ALANINE AMINOTRANSFERASE 13 U/L (12-78); ALBUMIN 2.9 g/dL (3.4-5.0); ANION GAP 6 mmol/L (5-15); CALCIUM 8.6 mg/dL (8.5-10.1); CHLORIDE 102 mmol/L (98-107); CREATININE 0.84 mg/dL (0.7-1.3)
[2021-04-12 05:00] LABS: ALKALINE PHOSPHATASE 93 U/L (45-117); BILIRUBIN,TOTAL 1.4 mg/dL (0.2-1.0); TOTAL PROTEIN 7.1 g/dL (6.4-8.2)
[2021-04-12] MEDS: OMEPRAZOLE 20 MG CAPSULE.DR PO SCH ×2 (05:50→16:13)
[2021-04-12 05:58] LABS: PLATELET COUNT 12 x10^3/uL (130-400)
[2021-04-12 06:02] LABS: LYMPHS% (MANUAL) 83 % (22-44); MONOS#(MANUAL) 0.06 x10^3/uL (0.3-2.7); MONOS% (MANUAL) 10 % (2-9); SEG#(MANUAL) 0.04 x10^3/uL (1.8-6.8); SEGS% (MANUAL) 7 % (42-75)
[2021-04-12 06:04] LABS: <PLATELET ESTIMATE> DECREASED; <PLT MORPHOLOGY> NORMAL PLT MORPH; ANISOCYTOSIS 1+; OVALOCYTES 1+; POLYCHROMASIA 1+
[2021-04-12 07:48] VITALS: BP 119/75
[2021-04-12] MEDS: ACYCLOVIR 400 MG TABLET PO SCH ×2 (08:14→20:29)
[2021-04-12] MEDS: CHOLECALCIFEROL 5,000u TAB PO SCH (08:14)
[2021-04-12] MEDS: ZINC SULFATE 220 MG CAPSULE PO SCH (08:14)
[2021-04-12] MEDS: FLUCONAZOLE 200 MG TABLET PO SCH (08:14)
[2021-04-12] MEDS: MULTIVITS,STRESS FORMULA 1 TABLET PO SCH (08:14)
[2021-04-12] MEDS: ASCORBIC ACID 500 MG TABLET PO SCH ×2 (08:14→16:13)
[2021-04-12] MEDS: DOCUSATE 100 MG CAPSULE PO SCH ×2 (08:14→20:29)
[2021-04-12] MEDS: ALLOPURINOL 300 MG TABLET PO SCH (08:16)
[2021-04-12 12:50] VITALS: BP 131/67
[2021-04-12] MEDS: LEVOFLOXACIN 500 MG TABLET PO SCH (16:13)
[2021-04-12 19:34] VITALS: BP 117/54
[2021-04-12] MEDS: morphine SULFATE 10 MG/ML, 1ML IVPush PRN ×2 (21:26→22:31)
[2021-04-13] VITALS (8 sets, daily range): BP systolic 103–117; BP diastolic 44–63
[2021-04-13] MEDS: OXYcodone IR 5MG TABLET PO PRN ×3 (00:37→21:15)
[2021-04-13] MEDS: LORazepam 0.5MG TABLET PO PRN ×2 (02:24→21:16)
[2021-04-13] MEDS: OMEPRAZOLE 20 MG CAPSULE.DR PO SCH ×2 (05:53→16:03)
[2021-04-13 06:30] LABS: MEAN CORPUSCULAR HEMOGLOBIN 29.6 pg (27.5-34.5); MEAN CORPUSCULAR HGB CONC 34.2 g/dL (33.2-36.2); MEAN PLATELET VOLUME 8.6 fL (7.4-10.4); RED CELL DISTRIBUTION WIDTH 15.7 % (9.4-14.8)
[2021-04-13 06:31] LABS: CHLORIDE 100 mmol/L (98-107)
[2021-04-13 06:37] LABS: ALANINE AMINOTRANSFERASE 14 U/L (12-78); ALBUMIN 2.7 g/dL (3.4-5.0); ALKALINE PHOSPHATASE 89 U/L (45-117); ANION GAP 6 mmol/L (5-15); BILIRUBIN,TOTAL 1.5 mg/dL (0.2-1.0); CALCIUM 8.5 mg/dL (8.5-10.1); CREATININE 0.84 mg/dL (0.7-1.3); TOTAL PROTEIN 7.2 g/dL (6.4-8.2)
[2021-04-13 07:37] LABS: PLATELET COUNT 9 x10^3/uL (130-400)
[2021-04-13 07:46] LABS: ANISOCYTOSIS 1+; LYMPH#(MANUAL) 0.48 x10^3/uL (1-3.4); LYMPHS% (MANUAL) 80 % (22-44); MONOS#(MANUAL) 0.07 x10^3/uL (0.3-2.7); MONOS% (MANUAL) 12 % (2-9); OVALOCYTES 1+; POLYCHROMASIA 1+; SEG#(MANUAL) 0.05 x10^3/uL (1.8-6.8); SEGS% (MANUAL) 8 % (42-75)
[2021-04-13 07:47] LABS: <PLATELET ESTIMATE> DECREASED; <PLT MORPHOLOGY> NORMAL PLT MORPH
[2021-04-13] MEDS ORDERED: CEFTRIAXONE 1,000 MG IM SCH (08:30)
[2021-04-13] MEDS: CHOLECALCIFEROL 5,000u TAB PO SCH (09:45)
[2021-04-13] MEDS: ASCORBIC ACID 500 MG TABLET PO SCH ×2 (09:45→16:02)
[2021-04-13] MEDS: FLUCONAZOLE 200 MG TABLET PO SCH (09:45)
[2021-04-13] MEDS: ZINC SULFATE 220 MG CAPSULE PO SCH (09:45)
[2021-04-13] MEDS: DOCUSATE 100 MG CAPSULE PO SCH ×2 (09:45→21:15)
[2021-04-13] MEDS: MULTIVITS,STRESS FORMULA 1 TABLET PO SCH (09:45)
[2021-04-13] MEDS: ALLOPURINOL 300 MG TABLET PO SCH (09:45)
[2021-04-13] MEDS: ACYCLOVIR 400 MG TABLET PO SCH ×2 (09:45→21:15)
[2021-04-13] MEDS: morphine SULFATE 10 MG/ML, 1ML IVPush PRN ×2 (09:46→19:27)
[2021-04-13] MEDS: ACETAMINOPHEN 325 MG TABLET PO PRN (10:53)
[2021-04-13] MEDS: DIPHENHYDRAMINE 25 MG CAPSULE PO PRN (10:53)
[2021-04-13] MEDS: CEFTRIAXONE 1,000 MG in DEXTROSE 5% 50 ML IVPB SCH (11:08)
[2021-04-13] MEDS: LEVOFLOXACIN 500 MG TABLET PO SCH (16:02)
[2021-04-14 00:26] VITALS: BP 112/47
[2021-04-14] MEDS: METHOCARBAMOL 500 MG TABLET PO PRN (00:34)
[2021-04-14] MEDS: OXYcodone IR 5MG TABLET PO PRN ×6 (01:16→22:45)
[2021-04-14] MEDS: LORazepam 0.5MG TABLET PO PRN (03:49)
[2021-04-14] MEDS: morphine SULFATE 10 MG/ML, 1ML IVPush PRN (03:49)
[2021-04-14 05:36] LABS: MEAN CORPUSCULAR HEMOGLOBIN 29.3 pg (27.5-34.5); MEAN CORPUSCULAR HGB CONC 33.5 g/dL (33.2-36.2); MEAN PLATELET VOLUME 8.1 fL (7.4-10.4); RED BLOOD COUNT 2.38 x10^6/uL (4.38-5.82); RED CELL DISTRIBUTION WIDTH 15.6 % (9.4-14.8)
[2021-04-14 05:36] LABS: ALANINE AMINOTRANSFERASE 12 U/L (12-78); ALBUMIN 2.8 g/dL (3.4-5.0); ANION GAP 5 mmol/L (5-15); CALCIUM 8.7 mg/dL (8.5-10.1); CHLORIDE 101 mmol/L (98-107)
[2021-04-14 05:39] LABS: ALKALINE PHOSPHATASE 87 U/L (45-117); BILIRUBIN,TOTAL 1.4 mg/dL (0.2-1.0); CREATININE 0.83 mg/dL (0.7-1.3); TOTAL PROTEIN 7.2 g/dL (6.4-8.2)
[2021-04-14 05:42] LABS: PLATELET COUNT 19 x10^3/uL (130-400)
[2021-04-14 06:24] LABS: BAND#(MANUAL) 0.01 x10^3/uL; BANDS%(MANUAL) 2 % (0-7); LYMPH#(MANUAL) 0.49 x10^3/uL (1-3.4); LYMPHS% (MANUAL) 70 % (22-44); MONOS#(MANUAL) 0.11 x10^3/uL (0.3-2.7); MONOS% (MANUAL) 16 % (2-9); SEG#(MANUAL) 0.08 x10^3/uL (1.8-6.8); SEGS% (MANUAL) 12 % (42-75)
[2021-04-14 06:25] LABS: <PLATELET ESTIMATE> DECREASED; <PLT MORPHOLOGY> NORMAL PLT MORPH; ANISOCYTOSIS 1+; OVALOCYTES 1+; POLYCHROMASIA 1+
[2021-04-14] MEDS: OMEPRAZOLE 20 MG CAPSULE.DR PO SCH ×2 (06:25→15:39)
[2021-04-14 06:50] VITALS: BP 108/48
[2021-04-14] MEDS: ASCORBIC ACID 500 MG TABLET PO SCH ×2 (08:41→15:39)
[2021-04-14] MEDS: ACYCLOVIR 400 MG TABLET PO SCH ×2 (08:41→20:06)
[2021-04-14] MEDS: FLUCONAZOLE 200 MG TABLET PO SCH (08:41)
[2021-04-14] MEDS: CHOLECALCIFEROL 5,000u TAB PO SCH (08:41)
[2021-04-14] MEDS: ZINC SULFATE 220 MG CAPSULE PO SCH (08:42)
[2021-04-14] MEDS: DOCUSATE 100 MG CAPSULE PO SCH ×2 (08:42→20:05)
[2021-04-14] MEDS: MULTIVITS,STRESS FORMULA 1 TABLET PO SCH (08:42)
[2021-04-14] MEDS: ALLOPURINOL 300 MG TABLET PO SCH (08:42)
[2021-04-14] MEDS ORDERED: OXYcodone IR 5MG TABLET ONE (09:37)
[2021-04-14] MEDS: CEFTRIAXONE 1,000 MG in DEXTROSE 5% 50 ML IVPB SCH (11:48)
[2021-04-14 12:42] VITALS: BP 103/48
[2021-04-14] MEDS: LEVOFLOXACIN 500 MG TABLET PO SCH (15:39)
[2021-04-14 18:41] VITALS: BP 117/67
[2021-04-15] MEDS: OXYcodone IR 5MG TABLET PO PRN ×3 (00:42→16:42)
[2021-04-15 01:45] VITALS: BP 103/65
[2021-04-15] MEDS: LORazepam 0.5MG TABLET PO PRN ×2 (04:12→11:54)
[2021-04-15 05:11] LABS: MEAN CORPUSCULAR HEMOGLOBIN 29.7 pg (27.5-34.5); MEAN CORPUSCULAR HGB CONC 33.6 g/dL (33.2-36.2); MEAN PLATELET VOLUME 8.5 fL (7.4-10.4); RED BLOOD COUNT 2.35 x10^6/uL (4.38-5.82); RED CELL DISTRIBUTION WIDTH 16.2 % (9.4-14.8)
[2021-04-15 05:16] LABS: PLATELET COUNT 13 x10^3/uL (130-400)
[2021-04-15 05:19] LABS: ALANINE AMINOTRANSFERASE 11 U/L (12-78); ALBUMIN 3.1 g/dL (3.4-5.0); ANION GAP 4 mmol/L (5-15); CALCIUM 8.7 mg/dL (8.5-10.1); CHLORIDE 103 mmol/L (98-107); CREATININE 0.77 mg/dL (0.7-1.3)
[2021-04-15 05:21] LABS: ALKALINE PHOSPHATASE 85 U/L (45-117); BILIRUBIN,TOTAL 1.3 mg/dL (0.2-1.0); TOTAL PROTEIN 7.3 g/dL (6.4-8.2)
[2021-04-15 05:57] LABS: SEGS% (MANUAL) 12 % (42-75)
[2021-04-15 05:58] LABS: ANISOCYTOSIS 1+; EOS#(MANUAL) 0.01 x10^3/uL (0.0-0.4); EOS% (MANUAL) 1 % (1-7); LYMPH#(MANUAL) 0.53 x10^3/uL (1-3.4); LYMPHS% (MANUAL) 66 % (22-44); MONOS#(MANUAL) 0.17 x10^3/uL (0.3-2.7); MONOS% (MANUAL) 21 % (2-9)
[2021-04-15 05:59] LABS: <PLATELET ESTIMATE> DECREASED; <PLT MORPHOLOGY> NORMAL PLT MORPH; OVALOCYTES 1+; POLYCHROMASIA 1+
[2021-04-15] MEDS: OMEPRAZOLE 20 MG CAPSULE.DR PO SCH ×2 (06:07→16:33)
[2021-04-15 09:11] VITALS: BP 109/55
[2021-04-15] MEDS: ASCORBIC ACID 500 MG TABLET PO SCH ×2 (10:21→16:33)
[2021-04-15] MEDS: FLUCONAZOLE 200 MG TABLET PO SCH (10:21)
[2021-04-15] MEDS: ZINC SULFATE 220 MG CAPSULE PO SCH (10:21)
[2021-04-15] MEDS: ALLOPURINOL 300 MG TABLET PO SCH (10:21)
[2021-04-15] MEDS: DOCUSATE 100 MG CAPSULE PO SCH ×2 (10:21→20:28)
[2021-04-15] MEDS: CHOLECALCIFEROL 5,000u TAB PO SCH (10:21)
[2021-04-15] MEDS: ACYCLOVIR 400 MG TABLET PO SCH ×2 (10:21→20:28)
[2021-04-15] MEDS: MULTIVITS,STRESS FORMULA 1 TABLET PO SCH (10:21)
[2021-04-15] MEDS: CEFTRIAXONE 1,000 MG in DEXTROSE 5% 50 ML IVPB SCH (11:54)
[2021-04-15 13:10] VITALS: BP 109/64
[2021-04-15] MEDS: LEVOFLOXACIN 500 MG TABLET PO SCH (16:33)
[2021-04-15 19:25] VITALS: BP 109/49
[2021-04-16] MEDS: OXYcodone IR 5MG TABLET PO PRN ×3 (00:15→16:40)
[2021-04-16 01:19] VITALS: BP 123/64
[2021-04-16] MEDS: LORazepam 0.5MG TABLET PO PRN ×2 (01:27→19:52)
[2021-04-16 04:53] LABS: MEAN CORPUSCULAR HEMOGLOBIN 29.6 pg (27.5-34.5); MEAN CORPUSCULAR HGB CONC 33.6 g/dL (33.2-36.2); MEAN PLATELET VOLUME 8.3 fL (7.4-10.4); RED BLOOD COUNT 2.44 x10^6/uL (4.38-5.82); RED CELL DISTRIBUTION WIDTH 16.3 % (9.4-14.8)
[2021-04-16 04:57] LABS: PLATELET COUNT 11 x10^3/uL (130-400)
[2021-04-16 05:01] LABS: ALANINE AMINOTRANSFERASE 10 U/L (12-78); ALBUMIN 2.8 g/dL (3.4-5.0); ANION GAP 4 mmol/L (5-15); CALCIUM 8.6 mg/dL (8.5-10.1); CHLORIDE 100 mmol/L (98-107)
[2021-04-16 05:03] LABS: ALKALINE PHOSPHATASE 83 U/L (45-117); BILIRUBIN,TOTAL 1.2 mg/dL (0.2-1.0); TOTAL PROTEIN 7.3 g/dL (6.4-8.2)
[2021-04-16 05:50] LABS: <PLATELET ESTIMATE> DECREASED; <PLT MORPHOLOGY> NORMAL PLT MORPH; ANISOCYTOSIS 1+; BAND#(MANUAL) 0.01 x10^3/uL; BANDS%(MANUAL) 1 % (0-7); BASOS#(MANUAL) 0.01 x10^3/uL (0-0.1); BASOS% (MANUAL) 1 % (0-1); LYMPH#(MANUAL) 0.46 x10^3/uL (1-3.4); LYMPHS% (MANUAL) 65 % (22-44); MONOS#(MANUAL) 0.14 x10^3/uL (0.3-2.7); MONOS% (MANUAL) 20 % (2-9); OVALOCYTES 1+; POLYCHROMASIA 1+; SEG#(MANUAL) 0.09 x10^3/uL (1.8-6.8); SEGS% (MANUAL) 13 % (42-75)
[2021-04-16] MEDS: OMEPRAZOLE 20 MG CAPSULE.DR PO SCH ×2 (06:25→16:32)
[2021-04-16] MEDS: ASCORBIC ACID 500 MG TABLET PO SCH ×2 (08:00→16:40)
[2021-04-16] MEDS ORDERED: ASCORBIC ACID 250 MG TAB ONE (08:34)
[2021-04-16] MEDS: ZINC SULFATE 220 MG CAPSULE PO SCH (08:41)
[2021-04-16] MEDS: MULTIVITS,STRESS FORMULA 1 TABLET PO SCH (08:41)
[2021-04-16] MEDS: CHOLECALCIFEROL 5,000u TAB PO SCH (08:43)
[2021-04-16] MEDS: FLUCONAZOLE 200 MG TABLET PO SCH (08:43)
[2021-04-16] MEDS: DOCUSATE 100 MG CAPSULE PO SCH ×2 (08:43→19:51)
[2021-04-16] MEDS: ACYCLOVIR 400 MG TABLET PO SCH ×2 (08:44→19:52)
[2021-04-16] MEDS: ALLOPURINOL 300 MG TABLET PO SCH (08:44)
[2021-04-16 08:46] VITALS: BP 103/48
[2021-04-16] MEDS: CEFTRIAXONE 1,000 MG in DEXTROSE 5% 50 ML IVPB SCH (11:51)
[2021-04-16] MEDS ORDERED: ONDANSETRON 2MG/ML, 2ML IV ONE ×2 (13:30)
[2021-04-16 14:06] VITALS: BP 114/56
[2021-04-16] MEDS: DECITABINE IV SCH (14:26)
[2021-04-16] MEDS: SODIUM CHLORIDE 0.9% IV SCH (14:26)
[2021-04-16] MEDS: LEVOFLOXACIN 500 MG TABLET PO SCH (16:32)
[2021-04-16 19:31] VITALS: BP 100/61
[2021-04-16] MEDS: MAGNESIUM HYDROXIDE 8%, 30ML UDC PO PRN (19:56)
[2021-04-16] MEDS ORDERED: ONDANSETRON 2MG/ML, 2ML IV PRN (21:30)
[2021-04-17] VITALS (9 sets, daily range): BP systolic 106–115; BP diastolic 51–67
[2021-04-17] MEDS: OXYcodone IR 5MG TABLET PO PRN ×2 (01:21→08:54)
[2021-04-17 05:30] LABS: MEAN CORPUSCULAR HGB CONC 33.8 g/dL (33.2-36.2); MEAN PLATELET VOLUME 8.7 fL (7.4-10.4); RED BLOOD COUNT 2.43 x10^6/uL (4.38-5.82); RED CELL DISTRIBUTION WIDTH 17.7 % (9.4-14.8)
[2021-04-17] MEDS: OMEPRAZOLE 20 MG CAPSULE.DR PO SCH ×2 (05:34→16:11)
[2021-04-17 05:38] LABS: PLATELET COUNT 9 x10^3/uL (130-400)
[2021-04-17 05:41] LABS: ALANINE AMINOTRANSFERASE 10 U/L (12-78); ANION GAP 6 mmol/L (5-15); CALCIUM 8.5 mg/dL (8.5-10.1); CHLORIDE 99 mmol/L (98-107); CREATININE 0.83 mg/dL (0.7-1.3)
[2021-04-17 05:44] LABS: ALKALINE PHOSPHATASE 86 U/L (45-117); BILIRUBIN,TOTAL 1.3 mg/dL (0.2-1.0); TOTAL PROTEIN 7.3 g/dL (6.4-8.2)
[2021-04-17 06:13] LABS: ANISOCYTOSIS 1+; LYMPH#(MANUAL) 0.49 x10^3/uL (1-3.4); LYMPHS% (MANUAL) 70 % (22-44); MONOS#(MANUAL) 0.12 x10^3/uL (0.3-2.7); MONOS% (MANUAL) 17 % (2-9); POLYCHROMASIA 1+; SEG#(MANUAL) 0.09 x10^3/uL (1.8-6.8); SEGS% (MANUAL) 13 % (42-75)
[2021-04-17 06:14] LABS: <PLATELET ESTIMATE> DECREASED; OVALOCYTES 1+
[2021-04-17 06:15] LABS: <PLT MORPHOLOGY> NORMAL PLT MORPH
[2021-04-17 06:17] LABS: TEAR DROPS 1+
[2021-04-17] MEDS: CHOLECALCIFEROL 5,000u TAB PO SCH (08:42)
[2021-04-17] MEDS: MULTIVITS,STRESS FORMULA 1 TABLET PO SCH (08:42)
[2021-04-17] MEDS: DOCUSATE 100 MG CAPSULE PO SCH ×2 (08:42→20:04)
[2021-04-17] MEDS: ACYCLOVIR 400 MG TABLET PO SCH ×2 (08:42→20:04)
[2021-04-17] MEDS: ZINC SULFATE 220 MG CAPSULE PO SCH (08:42)
[2021-04-17] MEDS: FLUCONAZOLE 200 MG TABLET PO SCH (08:43)
[2021-04-17] MEDS: ASCORBIC ACID 500 MG TABLET PO SCH ×2 (08:43→16:10)
[2021-04-17] MEDS: ACETAMINOPHEN 325 MG TABLET PO PRN (09:06)
[2021-04-17] MEDS: DIPHENHYDRAMINE 25 MG CAPSULE PO PRN (09:06)
[2021-04-17] MEDS: LORazepam 0.5MG TABLET PO PRN ×2 (10:15→17:21)
[2021-04-17] MEDS: DIPHENHYDRAMINE 50 MG/ML, 1ML IVPush PRN (11:50)
[2021-04-17] MEDS: CEFTRIAXONE 1,000 MG in DEXTROSE 5% 50 ML IVPB SCH (12:30)
[2021-04-17] MEDS: SODIUM CHLORIDE 0.9% IV SCH (14:33)
[2021-04-17] MEDS: DECITABINE IV SCH (14:33)
[2021-04-17] MEDS: LEVOFLOXACIN 500 MG TABLET PO SCH (16:11)
[2021-04-17] MEDS: MAGNESIUM HYDROXIDE 8%, 30ML UDC PO PRN (16:13)
[2021-04-17] MEDS: METHOCARBAMOL 500 MG TABLET PO PRN (23:19)
[2021-04-18 04:00] VITALS: BP 114/71
[2021-04-18 05:09] LABS: MEAN CORPUSCULAR HEMOGLOBIN 30.2 pg (27.5-34.5); MEAN CORPUSCULAR HGB CONC 33.7 g/dL (33.2-36.2); MEAN PLATELET VOLUME 8.6 fL (7.4-10.4); RED BLOOD COUNT 2.41 x10^6/uL (4.38-5.82); RED CELL DISTRIBUTION WIDTH 18.8 % (9.4-14.8)
[2021-04-18 05:11] LABS: PLATELET COUNT 13 x10^3/uL (130-400)
[2021-04-18 05:20] LABS: ALBUMIN 3.1 g/dL (3.4-5.0); ANION GAP 5 mmol/L (5-15); CALCIUM 8.9 mg/dL (8.5-10.1); CHLORIDE 100 mmol/L (98-107)
[2021-04-18 05:24] LABS: ALANINE AMINOTRANSFERASE 9 U/L (12-78); ALKALINE PHOSPHATASE 83 U/L (45-117); BILIRUBIN,TOTAL 1.3 mg/dL (0.2-1.0); CREATININE 0.85 mg/dL (0.7-1.3); TOTAL PROTEIN 7.3 g/dL (6.4-8.2)
[2021-04-18] MEDS: OMEPRAZOLE 20 MG CAPSULE.DR PO SCH ×2 (05:51→15:49)
[2021-04-18 06:03] LABS: LYMPH#(MANUAL) 0.69 x10^3/uL (1-3.4); LYMPHS% (MANUAL) 69 % (22-44); MONOS#(MANUAL) 0.17 x10^3/uL (0.3-2.7); MONOS% (MANUAL) 17 % (2-9); SEG#(MANUAL) 0.14 x10^3/uL (1.8-6.8); SEGS% (MANUAL) 14 % (42-75)
[2021-04-18 06:04] LABS: <PLATELET ESTIMATE> DECREASED; <PLT MORPHOLOGY> NORMAL PLT MORPH; ANISOCYTOSIS 1+; OVALOCYTES 1+; POLYCHROMASIA 1+
[2021-04-18] MEDS: FLUCONAZOLE 200 MG TABLET PO SCH (08:44)
[2021-04-18] MEDS: ZINC SULFATE 220 MG CAPSULE PO SCH (08:44)
[2021-04-18] MEDS: DOCUSATE 100 MG CAPSULE PO SCH ×2 (08:44→21:07)
[2021-04-18] MEDS: ACYCLOVIR 400 MG TABLET PO SCH ×2 (08:44→21:07)
[2021-04-18] MEDS: MULTIVITS,STRESS FORMULA 1 TABLET PO SCH (08:44)
[2021-04-18] MEDS: ASCORBIC ACID 500 MG TABLET PO SCH ×2 (08:44→15:49)
[2021-04-18] MEDS: CHOLECALCIFEROL 5,000u TAB PO SCH (08:45)
[2021-04-18 08:49] VITALS: BP 109/68
[2021-04-18] MEDS: CEFTRIAXONE 1,000 MG in DEXTROSE 5% 50 ML IVPB SCH (11:22)
[2021-04-18 12:21] VITALS: BP 104/67
[2021-04-18] MEDS: SODIUM CHLORIDE 0.9% IV SCH (14:18)
[2021-04-18] MEDS: DECITABINE IV SCH (14:18)
[2021-04-18] MEDS: LEVOFLOXACIN 500 MG TABLET PO SCH (15:49)
[2021-04-18] MEDS: LORazepam 0.5MG TABLET PO PRN (15:49)
[2021-04-18 18:45] VITALS: BP 108/63
[2021-04-18] MEDS: OXYcodone IR 5MG TABLET PO PRN (23:30)
[2021-04-18] MEDS: METHOCARBAMOL 500 MG TABLET PO PRN (23:30)
[2021-04-19 02:18] VITALS: BP 108/54
[2021-04-19] MEDS: LORazepam 0.5MG TABLET PO PRN ×2 (04:12→20:31)
[2021-04-19 05:35] LABS: MEAN CORPUSCULAR HEMOGLOBIN 30.7 pg (27.5-34.5); MEAN CORPUSCULAR HGB CONC 33.7 g/dL (33.2-36.2); MEAN PLATELET VOLUME 9.3 fL (7.4-10.4); RED BLOOD COUNT 2.34 x10^6/uL (4.38-5.82); RED CELL DISTRIBUTION WIDTH 18.7 % (9.4-14.8)
[2021-04-19 05:42] LABS: CHLORIDE 103 mmol/L (98-107)
[2021-04-19 05:49] LABS: ALANINE AMINOTRANSFERASE 9 U/L (12-78); ALKALINE PHOSPHATASE 83 U/L (45-117); ANION GAP 6 mmol/L (5-15); BILIRUBIN,TOTAL 1.3 mg/dL (0.2-1.0); CALCIUM 8.5 mg/dL (8.5-10.1); CREATININE 0.89 mg/dL (0.7-1.3); TOTAL PROTEIN 7.2 g/dL (6.4-8.2)
[2021-04-19 05:54] LABS: PLATELET COUNT 12 x10^3/uL (130-400)
[2021-04-19 06:11] LABS: LYMPH#(MANUAL) 0.73 x10^3/uL (1-3.4); LYMPHS% (MANUAL) 66 % (22-44); METAMYELOCYTES# (MANUAL) 0.01 x10^3/uL (0-0); METAMYELOCYTES% (MANUAL) 1 % (0-1); MONOS#(MANUAL) 0.23 x10^3/uL (0.3-2.7); MONOS% (MANUAL) 21 % (2-9); SEG#(MANUAL) 0.13 x10^3/uL (1.8-6.8); SEGS% (MANUAL) 12 % (42-75)
[2021-04-19 06:12] LABS: <PLATELET ESTIMATE> DECREASED; <PLT MORPHOLOGY> NORMAL PLT MORPH; ANISOCYTOSIS 1+; OVALOCYTES 1+; POLYCHROMASIA 1+
[2021-04-19] MEDS: OMEPRAZOLE 20 MG CAPSULE.DR PO SCH ×2 (06:13→16:08)
[2021-04-19] MEDS: OXYcodone IR 5MG TABLET PO PRN ×2 (06:18→20:31)
[2021-04-19 08:23] VITALS: BP 107/66
[2021-04-19] MEDS: CHOLECALCIFEROL 5,000u TAB PO SCH (08:26)
[2021-04-19] MEDS: ASCORBIC ACID 500 MG TABLET PO SCH ×2 (08:27→17:48)
[2021-04-19] MEDS: MULTIVITS,STRESS FORMULA 1 TABLET PO SCH (08:27)
[2021-04-19] MEDS: ACYCLOVIR 400 MG TABLET PO SCH ×2 (08:27→20:30)
[2021-04-19] MEDS: FLUCONAZOLE 200 MG TABLET PO SCH (08:27)
[2021-04-19] MEDS: ZINC SULFATE 220 MG CAPSULE PO SCH (08:27)
[2021-04-19] MEDS: DOCUSATE 100 MG CAPSULE PO SCH ×2 (08:27→20:30)
[2021-04-19] MEDS: CEFTRIAXONE 1,000 MG in DEXTROSE 5% 50 ML IVPB SCH (11:20)
[2021-04-19 14:08] VITALS: BP 108/68
[2021-04-19] MEDS: SODIUM CHLORIDE 0.9% IV SCH (14:15)
[2021-04-19] MEDS: DECITABINE IV SCH (14:15)
[2021-04-19] MEDS: LEVOFLOXACIN 500 MG TABLET PO SCH (16:08)
[2021-04-19 19:55] VITALS: BP 98/59
[2021-04-20] VITALS (11 sets, daily range): BP systolic 91–112; BP diastolic 53–69
[2021-04-20] MEDS ORDERED: LORazepam 1MG TABLET ONE (03:48)
[2021-04-20] MEDS: LORazepam 0.5MG TABLET PO PRN ×3 (03:53→20:25)
[2021-04-20] MEDS: OXYcodone IR 5MG TABLET PO PRN ×2 (03:53→20:25)
[2021-04-20 04:55] LABS: MEAN CORPUSCULAR HEMOGLOBIN 30.7 pg (27.5-34.5); MEAN CORPUSCULAR HGB CONC 33.5 g/dL (33.2-36.2); MEAN PLATELET VOLUME 8.8 fL (7.4-10.4); RED BLOOD COUNT 2.18 x10^6/uL (4.38-5.82); RED CELL DISTRIBUTION WIDTH 18.8 % (9.4-14.8)
[2021-04-20 05:01] LABS: PLATELET COUNT 11 x10^3/uL (130-400)
[2021-04-20 05:02] LABS: ALANINE AMINOTRANSFERASE 10 U/L (12-78); ALBUMIN 2.9 g/dL (3.4-5.0); ANION GAP 6 mmol/L (5-15); CALCIUM 8.1 mg/dL (8.5-10.1); CHLORIDE 103 mmol/L (98-107); CREATININE 0.88 mg/dL (0.7-1.3)
[2021-04-20 05:05] LABS: ALKALINE PHOSPHATASE 78 U/L (45-117); BILIRUBIN,TOTAL 1.3 mg/dL (0.2-1.0); TOTAL PROTEIN 6.8 g/dL (6.4-8.2)
[2021-04-20 05:52] LABS: ANISOCYTOSIS 1+; BAND#(MANUAL) 0.02 x10^3/uL; BANDS%(MANUAL) 2 % (0-7); LYMPH#(MANUAL) 0.55 x10^3/uL (1-3.4); LYMPHS% (MANUAL) 61 % (22-44); MONOS#(MANUAL) 0.14 x10^3/uL (0.3-2.7); MONOS% (MANUAL) 15 % (2-9); OVALOCYTES 1+; POLYCHROMASIA 1+; SEGS% (MANUAL) 22 % (42-75)
[2021-04-20 05:53] LABS: <PLATELET ESTIMATE> DECREASED; <PLT MORPHOLOGY> NORMAL PLT MORPH
[2021-04-20] MEDS: OMEPRAZOLE 20 MG CAPSULE.DR PO SCH ×2 (06:45→16:12)
[2021-04-20] MEDS: CHOLECALCIFEROL 5,000u TAB PO SCH (09:00)
[2021-04-20] MEDS: DIPHENHYDRAMINE 50 MG/ML, 1ML IVPush PRN (09:49)
[2021-04-20] MEDS: ZINC SULFATE 220 MG CAPSULE PO SCH (09:50)
[2021-04-20] MEDS: ACETAMINOPHEN 325 MG TABLET PO PRN (09:50)
[2021-04-20] MEDS: DOCUSATE 100 MG CAPSULE PO SCH ×2 (09:50→20:24)
[2021-04-20] MEDS: ACYCLOVIR 400 MG TABLET PO SCH ×2 (09:50→20:25)
[2021-04-20] MEDS: ASCORBIC ACID 500 MG TABLET PO SCH ×2 (09:50→16:12)
[2021-04-20] MEDS: FLUCONAZOLE 200 MG TABLET PO SCH (09:50)
[2021-04-20] MEDS: MULTIVITS,STRESS FORMULA 1 TABLET PO SCH (09:50)
[2021-04-20] MEDS: CEFTRIAXONE 1,000 MG in DEXTROSE 5% 50 ML IVPB SCH (11:18)
[2021-04-20] MEDS: DECITABINE IV SCH (16:06)
[2021-04-20] MEDS: SODIUM CHLORIDE 0.9% IV SCH (16:06)
[2021-04-20] MEDS: LEVOFLOXACIN 500 MG TABLET PO SCH (16:12)
[2021-04-21] MEDS: OXYcodone IR 5MG TABLET PO PRN ×3 (01:06→20:34)
[2021-04-21] MEDS: METHOCARBAMOL 500 MG TABLET PO PRN ×2 (01:06→20:34)
[2021-04-21] MEDS: OMEPRAZOLE 20 MG CAPSULE.DR PO SCH ×2 (05:17→16:27)
[2021-04-21] MEDS: LORazepam 0.5MG TABLET PO PRN ×3 (05:18→23:19)
[2021-04-21 05:22] VITALS: BP 100/66
[2021-04-21 05:31] LABS: MEAN CORPUSCULAR HEMOGLOBIN 30.8 pg (27.5-34.5); MEAN PLATELET VOLUME 8.6 fL (7.4-10.4); RED BLOOD COUNT 2.53 x10^6/uL (4.38-5.82); RED CELL DISTRIBUTION WIDTH 19.7 % (9.4-14.8)
[2021-04-21 05:38] LABS: CHLORIDE 102 mmol/L (98-107)
[2021-04-21 05:41] LABS: PLATELET COUNT 17 x10^3/uL (130-400)
[2021-04-21 05:45] LABS: ANION GAP 7 mmol/L (5-15); CALCIUM 8.4 mg/dL (8.5-10.1); CREATININE 0.98 mg/dL (0.7-1.3)
[2021-04-21 05:46] LABS: ALANINE AMINOTRANSFERASE 10 U/L (12-78); ALKALINE PHOSPHATASE 81 U/L (45-117); BILIRUBIN,TOTAL 1.3 mg/dL (0.2-1.0); TOTAL PROTEIN 7.2 g/dL (6.4-8.2)
[2021-04-21 06:06] LABS: SEG#(MANUAL) 0.14 x10^3/uL (1.8-6.8); SEGS% (MANUAL) 15 % (42-75)
[2021-04-21 06:07] LABS: <PLATELET ESTIMATE> DECREASED; <PLT MORPHOLOGY> NORMAL PLT MORPH; ANISOCYTOSIS 1+; LYMPH#(MANUAL) 0.71 x10^3/uL (1-3.4); LYMPHS% (MANUAL) 79 % (22-44); MONOS#(MANUAL) 0.05 x10^3/uL (0.3-2.7); MONOS% (MANUAL) 6 % (2-9); OVALOCYTES 1+; POLYCHROMASIA 1+
[2021-04-21] MEDS: DOCUSATE 100 MG CAPSULE PO SCH ×2 (08:39→20:35)
[2021-04-21] MEDS: MULTIVITS,STRESS FORMULA 1 TABLET PO SCH (08:39)
[2021-04-21] MEDS: ZINC SULFATE 220 MG CAPSULE PO SCH (08:39)
[2021-04-21] MEDS: ASCORBIC ACID 500 MG TABLET PO SCH ×2 (08:39→16:26)
[2021-04-21] MEDS: ACYCLOVIR 400 MG TABLET PO SCH ×2 (08:39→20:35)
[2021-04-21] MEDS: FLUCONAZOLE 200 MG TABLET PO SCH (08:40)
[2021-04-21] MEDS: CHOLECALCIFEROL 5,000u TAB PO SCH (08:40)
[2021-04-21 09:08] VITALS: BP 116/57
[2021-04-21] MEDS: CEFTRIAXONE 1,000 MG in DEXTROSE 5% 50 ML IVPB SCH (11:51)
[2021-04-21 13:54] VITALS: BP 109/67
[2021-04-21] MEDS: LEVOFLOXACIN 500 MG TABLET PO SCH (16:26)
[2021-04-21 18:43] VITALS: BP 92/55
[2021-04-22 01:31] VITALS: BP 101/65
[2021-04-22 05:32] LABS: MEAN CORPUSCULAR HEMOGLOBIN 30.7 pg (27.5-34.5); MEAN CORPUSCULAR HGB CONC 33.8 g/dL (33.2-36.2); MEAN PLATELET VOLUME 8.6 fL (7.4-10.4); RED BLOOD COUNT 2.43 x10^6/uL (4.38-5.82); RED CELL DISTRIBUTION WIDTH 19.8 % (9.4-14.8)
[2021-04-22] MEDS: OMEPRAZOLE 20 MG CAPSULE.DR PO SCH ×2 (05:33→16:35)
[2021-04-22] MEDS: METHOCARBAMOL 500 MG TABLET PO PRN (05:33)
[2021-04-22] MEDS: OXYcodone IR 5MG TABLET PO PRN ×3 (05:33→16:50)
[2021-04-22 05:38] LABS: ALBUMIN 3.2 g/dL (3.4-5.0); ANION GAP 5 mmol/L (5-15); CALCIUM 8.5 mg/dL (8.5-10.1); CHLORIDE 104 mmol/L (98-107)
[2021-04-22 05:43] LABS: ALANINE AMINOTRANSFERASE 11 U/L (12-78); ALKALINE PHOSPHATASE 84 U/L (45-117); BILIRUBIN,TOTAL 1.2 mg/dL (0.2-1.0); CREATININE 0.83 mg/dL (0.7-1.3); TOTAL PROTEIN 7.3 g/dL (6.4-8.2)
[2021-04-22 05:45] LABS: PLATELET COUNT 13 x10^3/uL (130-400)
[2021-04-22 06:11] LABS: BAND#(MANUAL) 0.01 x10^3/uL; BANDS%(MANUAL) 1 % (0-7); LYMPH#(MANUAL) 0.62 x10^3/uL (1-3.4); LYMPHS% (MANUAL) 69 % (22-44); SEGS% (MANUAL) 23 % (42-75)
[2021-04-22 06:12] LABS: MONOS#(MANUAL) 0.06 x10^3/uL (0.3-2.7); MONOS% (MANUAL) 7 % (2-9); SEG#(MANUAL) 0.21 x10^3/uL (1.8-6.8)
[2021-04-22 06:13] LABS: <PLATELET ESTIMATE> DECREASED; <PLT MORPHOLOGY> NORMAL PLT MORPH; ANISOCYTOSIS 1+; OVALOCYTES 1+; POLYCHROMASIA 1+
[2021-04-22 06:41] VITALS: BP 98/61
[2021-04-22] MEDS: LORazepam 0.5MG TABLET PO PRN ×2 (08:12→16:51)
[2021-04-22] MEDS: ACYCLOVIR 400 MG TABLET PO SCH ×2 (08:13→20:42)
[2021-04-22] MEDS: DOCUSATE 100 MG CAPSULE PO SCH ×2 (08:13→20:42)
[2021-04-22] MEDS: ASCORBIC ACID 500 MG TABLET PO SCH ×2 (08:13→16:35)
[2021-04-22] MEDS: CHOLECALCIFEROL 5,000u TAB PO SCH (08:13)
[2021-04-22] MEDS: ZINC SULFATE 220 MG CAPSULE PO SCH (08:13)
[2021-04-22] MEDS: FLUCONAZOLE 200 MG TABLET PO SCH (08:13)
[2021-04-22] MEDS: MULTIVITS,STRESS FORMULA 1 TABLET PO SCH (08:13)
[2021-04-22] MEDS: CEFTRIAXONE 1,000 MG in DEXTROSE 5% 50 ML IVPB SCH (11:22)
[2021-04-22 12:34] VITALS: BP 104/64
[2021-04-22] MEDS: LEVOFLOXACIN 500 MG TABLET PO SCH (16:35)
[2021-04-22 18:38] VITALS: BP 106/67
[2021-04-23] VITALS (9 sets, daily range): BP systolic 96–127; BP diastolic 57–71
[2021-04-23] MEDS: OXYcodone IR 5MG TABLET PO PRN ×3 (02:42→20:48)
[2021-04-23 05:31] LABS: MEAN CORPUSCULAR HEMOGLOBIN 30.2 pg (27.5-34.5); MEAN CORPUSCULAR HGB CONC 33.5 g/dL (33.2-36.2); MEAN PLATELET VOLUME 8.9 fL (7.4-10.4)
[2021-04-23 05:36] LABS: PLATELET COUNT 10 x10^3/uL (130-400)
[2021-04-23 05:44] LABS: ALBUMIN 2.9 g/dL (3.4-5.0); ANION GAP 3 mmol/L (5-15); CALCIUM 8.3 mg/dL (8.5-10.1); CHLORIDE 103 mmol/L (98-107)
[2021-04-23 05:48] LABS: ALANINE AMINOTRANSFERASE 10 U/L (12-78); ALKALINE PHOSPHATASE 79 U/L (45-117); BILIRUBIN,TOTAL 1.1 mg/dL (0.2-1.0); CREATININE 0.75 mg/dL (0.7-1.3); TOTAL PROTEIN 6.9 g/dL (6.4-8.2)
[2021-04-23] MEDS: OMEPRAZOLE 20 MG CAPSULE.DR PO SCH ×2 (06:02→16:22)
[2021-04-23 06:33] LABS: BAND#(MANUAL) 0.04 x10^3/uL; BANDS%(MANUAL) 5 % (0-7); SEG#(MANUAL) 0.21 x10^3/uL (1.8-6.8); SEGS% (MANUAL) 30 % (42-75)
[2021-04-23 06:34] LABS: ANISOCYTOSIS 1+; LYMPH#(MANUAL) 0.41 x10^3/uL (1-3.4); LYMPHS% (MANUAL) 58 % (22-44); MONOS#(MANUAL) 0.05 x10^3/uL (0.3-2.7); MONOS% (MANUAL) 7 % (2-9); OVALOCYTES 1+; POLYCHROMASIA 1+
[2021-04-23 06:36] LABS: <PLATELET ESTIMATE> DECREASED; <PLT MORPHOLOGY> NORMAL PLT MORPH
[2021-04-23] MEDS: MULTIVITS,STRESS FORMULA 1 TABLET PO SCH (09:56)
[2021-04-23] MEDS: DOCUSATE 100 MG CAPSULE PO SCH ×2 (09:56→20:49)
[2021-04-23] MEDS: CHOLECALCIFEROL 5,000u TAB PO SCH (09:57)
[2021-04-23] MEDS: ZINC SULFATE 220 MG CAPSULE PO SCH (09:57)
[2021-04-23] MEDS: FLUCONAZOLE 200 MG TABLET PO SCH (09:57)
[2021-04-23] MEDS: ACYCLOVIR 400 MG TABLET PO SCH ×2 (09:57→20:48)
[2021-04-23] MEDS: ASCORBIC ACID 500 MG TABLET PO SCH ×2 (09:57→16:22)
[2021-04-23] MEDS: LORazepam 0.5MG TABLET PO PRN ×2 (09:58→19:37)
[2021-04-23] MEDS: CEFTRIAXONE 1,000 MG in DEXTROSE 5% 50 ML IVPB SCH (11:41)
[2021-04-23] MEDS: DIPHENHYDRAMINE 50 MG/ML, 1ML IVPush PRN (12:24)
[2021-04-23] MEDS: ACETAMINOPHEN 325 MG TABLET PO PRN (12:24)
[2021-04-23] MEDS: LEVOFLOXACIN 500 MG TABLET PO SCH (16:22)
[2021-04-23] MEDS: METHOCARBAMOL 500 MG TABLET PO PRN (23:18)
[2021-04-24 00:12] VITALS: BP 111/59
[2021-04-24 05:22] LABS: MEAN CORPUSCULAR HEMOGLOBIN 30.4 pg (27.5-34.5); MEAN PLATELET VOLUME 8.2 fL (7.4-10.4); RED BLOOD COUNT 2.33 x10^6/uL (4.38-5.82); RED CELL DISTRIBUTION WIDTH 18.9 % (9.4-14.8)
[2021-04-24] MEDS: OMEPRAZOLE 20 MG CAPSULE.DR PO SCH ×2 (05:27→16:02)
[2021-04-24 05:30] LABS: ALBUMIN 3.1 g/dL (3.4-5.0); ANION GAP 6 mmol/L (5-15); CALCIUM 8.5 mg/dL (8.5-10.1); CHLORIDE 104 mmol/L (98-107)
[2021-04-24 05:34] LABS: ALANINE AMINOTRANSFERASE 11 U/L (12-78); ALKALINE PHOSPHATASE 78 U/L (45-117); BILIRUBIN,TOTAL 1.2 mg/dL (0.2-1.0); CREATININE 0.67 mg/dL (0.7-1.3); TOTAL PROTEIN 6.8 g/dL (6.4-8.2)
[2021-04-24 05:35] LABS: PLATELET COUNT 17 x10^3/uL (130-400)
[2021-04-24 06:00] LABS: LYMPH#(MANUAL) 0.56 x10^3/uL (1-3.4); LYMPHS% (MANUAL) 70 % (22-44); MONOS#(MANUAL) 0.05 x10^3/uL (0.3-2.7); MONOS% (MANUAL) 6 % (2-9); SEG#(MANUAL) 0.19 x10^3/uL (1.8-6.8); SEGS% (MANUAL) 24 % (42-75)
[2021-04-24 06:01] LABS: <PLATELET ESTIMATE> DECREASED; <PLT MORPHOLOGY> NORMAL PLT MORPH; ANISOCYTOSIS 1+; OVALOCYTES 1+; POLYCHROMASIA 1+
[2021-04-24] MEDS: LORazepam 0.5MG TABLET PO PRN ×2 (07:08→16:05)
[2021-04-24] MEDS: CHOLECALCIFEROL 5,000u TAB PO SCH (08:36)
[2021-04-24] MEDS: ASCORBIC ACID 500 MG TABLET PO SCH ×2 (08:37→16:02)
[2021-04-24] MEDS: DOCUSATE 100 MG CAPSULE PO SCH ×2 (08:37→20:07)
[2021-04-24] MEDS: MULTIVITS,STRESS FORMULA 1 TABLET PO SCH (08:37)
[2021-04-24] MEDS: ZINC SULFATE 220 MG CAPSULE PO SCH (08:37)
[2021-04-24] MEDS: ACYCLOVIR 400 MG TABLET PO SCH ×2 (08:38→20:07)
[2021-04-24] MEDS: FLUCONAZOLE 200 MG TABLET PO SCH (08:38)
[2021-04-24] MEDS: OXYcodone IR 5MG TABLET PO PRN ×2 (08:44→20:07)
[2021-04-24] MEDS: CEFTRIAXONE 1,000 MG in DEXTROSE 5% 50 ML IVPB SCH (11:37)
[2021-04-24 11:42] VITALS: BP 110/68
[2021-04-24 14:52] VITALS: BP 109/68
[2021-04-24] MEDS: LEVOFLOXACIN 500 MG TABLET PO SCH (16:02)
[2021-04-24 20:04] VITALS: BP 97/66
[2021-04-24] MEDS: METHOCARBAMOL 500 MG TABLET PO PRN (20:07)
[2021-04-25] VITALS (8 sets, daily range): BP systolic 97–114; BP diastolic 60–73
[2021-04-25] MEDS: OXYcodone IR 5MG TABLET PO PRN ×4 (05:22→20:26)
[2021-04-25] MEDS: OMEPRAZOLE 20 MG CAPSULE.DR PO SCH ×2 (05:23→16:22)
[2021-04-25] MEDS: LORazepam 0.5MG TABLET PO PRN ×2 (05:23→20:27)
[2021-04-25 06:12] LABS: MEAN CORPUSCULAR HEMOGLOBIN 30.1 pg (27.5-34.5); MEAN CORPUSCULAR HGB CONC 34.3 g/dL (33.2-36.2); MEAN PLATELET VOLUME 8.8 fL (7.4-10.4); RED CELL DISTRIBUTION WIDTH 18.3 % (9.4-14.8)
[2021-04-25 06:21] LABS: CHLORIDE 104 mmol/L (98-107)
[2021-04-25 06:29] LABS: ALANINE AMINOTRANSFERASE 11 U/L (12-78); ALBUMIN 3.1 g/dL (3.4-5.0); ALKALINE PHOSPHATASE 73 U/L (45-117); ANION GAP 7 mmol/L (5-15); CALCIUM 8.7 mg/dL (8.5-10.1); CREATININE 0.68 mg/dL (0.7-1.3); TOTAL PROTEIN 6.9 g/dL (6.4-8.2)
[2021-04-25 06:38] LABS: PLATELET COUNT 12 x10^3/uL (130-400)
[2021-04-25 07:10] LABS: LYMPH#(MANUAL) 0.68 x10^3/uL (1-3.4); LYMPHS% (MANUAL) 85 % (22-44); MONOS#(MANUAL) 0.03 x10^3/uL (0.3-2.7); MONOS% (MANUAL) 4 % (2-9); MYELOCYTES# (MANUAL) 0.01 x10^3/uL (0-0); MYELOCYTES% (MANUAL) 1 % (0-0); SEG#(MANUAL) 0.08 x10^3/uL (1.8-6.8); SEGS% (MANUAL) 10 % (42-75)
[2021-04-25 07:12] LABS: ANISOCYTOSIS 1+
[2021-04-25 07:13] LABS: <PLATELET ESTIMATE> DECREASED; <PLT MORPHOLOGY> QNS FOR PLT MORPH; OVALOCYTES 1+
[2021-04-25] MEDS: MULTIVITS,STRESS FORMULA 1 TABLET PO SCH (09:00)
[2021-04-25] MEDS: FLUCONAZOLE 200 MG TABLET PO SCH (09:15)
[2021-04-25] MEDS: DIPHENHYDRAMINE 50 MG/ML, 1ML IVPush PRN (09:15)
[2021-04-25] MEDS: ASCORBIC ACID 500 MG TABLET PO SCH ×2 (09:16→16:23)
[2021-04-25] MEDS: DOCUSATE 100 MG CAPSULE PO SCH ×2 (09:16→20:26)
[2021-04-25] MEDS: ACYCLOVIR 400 MG TABLET PO SCH ×2 (09:16→20:26)
[2021-04-25] MEDS: ZINC SULFATE 220 MG CAPSULE PO SCH (09:16)
[2021-04-25] MEDS: CHOLECALCIFEROL 5,000u TAB PO SCH (09:16)
[2021-04-25] MEDS: ACETAMINOPHEN 325 MG TABLET PO PRN (09:51)
[2021-04-25] MEDS: CEFTRIAXONE 1,000 MG in DEXTROSE 5% 50 ML IVPB SCH (11:59)
[2021-04-25] MEDS: METHOCARBAMOL 500 MG TABLET PO PRN (13:05)
[2021-04-25] MEDS: LEVOFLOXACIN 500 MG TABLET PO SCH (16:23)
[2021-04-26 00:13] VITALS: BP 109/68
[2021-04-26] MEDS: METHOCARBAMOL 500 MG TABLET PO PRN ×2 (00:28→20:37)
[2021-04-26] MEDS: OXYcodone IR 5MG TABLET PO PRN ×3 (00:29→20:37)
[2021-04-26 05:41] LABS: MEAN CORPUSCULAR HEMOGLOBIN 29.8 pg (27.5-34.5); MEAN PLATELET VOLUME 8.8 fL (7.4-10.4); RED BLOOD COUNT 2.43 x10^6/uL (4.38-5.82); RED CELL DISTRIBUTION WIDTH 18.1 % (9.4-14.8)
[2021-04-26 05:45] LABS: ALANINE AMINOTRANSFERASE 12 U/L (12-78); ALBUMIN 3.1 g/dL (3.4-5.0); ANION GAP 5 mmol/L (5-15); CALCIUM 8.6 mg/dL (8.5-10.1); CHLORIDE 105 mmol/L (98-107)
[2021-04-26] MEDS: OMEPRAZOLE 20 MG CAPSULE.DR PO SCH ×2 (05:45→16:29)
[2021-04-26 05:47] LABS: ALKALINE PHOSPHATASE 72 U/L (45-117); CREATININE 0.77 mg/dL (0.7-1.3); TOTAL PROTEIN 6.9 g/dL (6.4-8.2)
[2021-04-26 05:52] LABS: PLATELET COUNT 9 x10^3/uL (130-400)
[2021-04-26 06:56] LABS: LYMPH#(MANUAL) 0.71 x10^3/uL (1-3.4); LYMPHS% (MANUAL) 79 % (22-44); MONOS#(MANUAL) 0.01 x10^3/uL (0.3-2.7); MONOS% (MANUAL) 1 % (2-9); SEG#(MANUAL) 0.18 x10^3/uL (1.8-6.8); SEGS% (MANUAL) 20 % (42-75)
[2021-04-26 06:58] LABS: <PLATELET ESTIMATE> DECREASED; <PLT MORPHOLOGY> QNS FOR PLT MORPH; ANISOCYTOSIS 1+; OVALOCYTES 1+
[2021-04-26] MEDS: ZINC SULFATE 220 MG CAPSULE PO SCH (10:36)
[2021-04-26] MEDS: MULTIVITS,STRESS FORMULA 1 TABLET PO SCH (10:36)
[2021-04-26] MEDS: CHOLECALCIFEROL 5,000u TAB PO SCH (10:37)
[2021-04-26] MEDS: ACYCLOVIR 400 MG TABLET PO SCH ×2 (10:37→20:37)
[2021-04-26] MEDS: FLUCONAZOLE 200 MG TABLET PO SCH (10:37)
[2021-04-26] MEDS: ASCORBIC ACID 500 MG TABLET PO SCH ×2 (10:37→16:29)
[2021-04-26] MEDS: DOCUSATE 100 MG CAPSULE PO SCH ×2 (10:37→20:37)
[2021-04-26] MEDS: DIPHENHYDRAMINE 50 MG/ML, 1ML IVPush PRN (12:49)
[2021-04-26] MEDS: ACETAMINOPHEN 325 MG TABLET PO PRN (12:49)
[2021-04-26] MEDS: CEFTRIAXONE 1,000 MG in DEXTROSE 5% 50 ML IVPB SCH (14:15)
[2021-04-26 14:16] VITALS: BP 107/55
[2021-04-26 14:35] VITALS: BP 107/55
[2021-04-26 14:47] VITALS: BP 107/54
[2021-04-26] MEDS ORDERED: ASCORBIC ACID 250 MG TAB ONE (16:09)
[2021-04-26] MEDS: LEVOFLOXACIN 500 MG TABLET PO SCH (16:28)
[2021-04-26 17:55] VITALS: BP 110/58
[2021-04-26 19:57] VITALS: BP 103/68
[2021-04-26] MEDS: MAGNESIUM HYDROXIDE 8%, 30ML UDC PO PRN (20:37)
[2021-04-27] VITALS (8 sets, daily range): BP systolic 102–122; BP diastolic 49–72
[2021-04-27] MEDS: LORazepam 0.5MG TABLET PO PRN ×3 (00:29→21:16)
[2021-04-27] MEDS: OXYcodone IR 5MG TABLET PO PRN ×2 (00:29→21:17)
[2021-04-27] MEDS: OMEPRAZOLE 20 MG CAPSULE.DR PO SCH ×2 (05:55→16:02)
[2021-04-27 06:47] LABS: ALBUMIN 3.1 g/dL (3.4-5.0); ANION GAP 6 mmol/L (5-15); CALCIUM 8.8 mg/dL (8.5-10.1); CHLORIDE 103 mmol/L (98-107)
[2021-04-27 06:51] LABS: ALANINE AMINOTRANSFERASE 12 U/L (12-78); ALKALINE PHOSPHATASE 72 U/L (45-117); CREATININE 0.72 mg/dL (0.7-1.3); TOTAL PROTEIN 6.8 g/dL (6.4-8.2)
[2021-04-27 06:52] LABS: MEAN CORPUSCULAR HEMOGLOBIN 30.2 pg (27.5-34.5); MEAN CORPUSCULAR HGB CONC 34.6 g/dL (33.2-36.2); MEAN PLATELET VOLUME 8.6 fL (7.4-10.4); RED BLOOD COUNT 2.22 x10^6/uL (4.38-5.82); RED CELL DISTRIBUTION WIDTH 16.9 % (9.4-14.8)
[2021-04-27 07:00] LABS: PLATELET COUNT 16 x10^3/uL (130-400)
[2021-04-27 07:43] LABS: SEG#(MANUAL) 0.31 x10^3/uL (1.8-6.8); SEGS% (MANUAL) 39 % (42-75)
[2021-04-27 07:45] LABS: BAND#(MANUAL) 0.04 x10^3/uL; BANDS%(MANUAL) 5 % (0-7); EOS#(MANUAL) 0.01 x10^3/uL (0.0-0.4); EOS% (MANUAL) 1 % (1-7); LYMPH#(MANUAL) 0.42 x10^3/uL (1-3.4); LYMPHS% (MANUAL) 52 % (22-44); MONOS#(MANUAL) 0.02 x10^3/uL (0.3-2.7); MONOS% (MANUAL) 3 % (2-9)
[2021-04-27 07:47] LABS: <PLATELET ESTIMATE> DECREASED; ANISOCYTOSIS 1+; OVALOCYTES 1+
[2021-04-27 07:48] LABS: <PLT MORPHOLOGY> NORMAL PLT MORPH
[2021-04-27] MEDS: MULTIVITS,STRESS FORMULA 1 TABLET PO SCH (08:52)
[2021-04-27] MEDS: ASCORBIC ACID 500 MG TABLET PO SCH ×2 (08:52→16:02)
[2021-04-27] MEDS: CHOLECALCIFEROL 5,000u TAB PO SCH (08:52)
[2021-04-27] MEDS: ACETAMINOPHEN 325 MG TABLET PO PRN (08:52)
[2021-04-27] MEDS: ACYCLOVIR 400 MG TABLET PO SCH ×2 (08:53→21:17)
[2021-04-27] MEDS: FLUCONAZOLE 200 MG TABLET PO SCH (08:53)
[2021-04-27] MEDS: ZINC SULFATE 220 MG CAPSULE PO SCH (08:53)
[2021-04-27] MEDS: DOCUSATE 100 MG CAPSULE PO SCH ×2 (08:53→21:17)
[2021-04-27] MEDS: DIPHENHYDRAMINE 50 MG/ML, 1ML IVPush PRN (08:54)
[2021-04-27] MEDS: MAGNESIUM HYDROXIDE 8%, 30ML UDC PO PRN (10:19)
[2021-04-27] MEDS: LEVOFLOXACIN 500 MG TABLET PO SCH (16:02)
[2021-04-28] VITALS (10 sets, daily range): BP systolic 90–116; BP diastolic 44–61
[2021-04-28] MEDS: METHOCARBAMOL 500 MG TABLET PO PRN (01:49)
[2021-04-28] MEDS: OXYcodone IR 5MG TABLET PO PRN ×2 (01:50→10:53)
[2021-04-28] MEDS: OMEPRAZOLE 20 MG CAPSULE.DR PO SCH ×2 (04:50→16:38)
[2021-04-28 05:24] LABS: MEAN CORPUSCULAR HEMOGLOBIN 29.4 pg (27.5-34.5); MEAN CORPUSCULAR HGB CONC 33.9 g/dL (33.2-36.2); MEAN PLATELET VOLUME 8.7 fL (7.4-10.4); RED BLOOD COUNT 2.22 x10^6/uL (4.38-5.82); RED CELL DISTRIBUTION WIDTH 16.7 % (9.4-14.8)
[2021-04-28 05:34] LABS: PLATELET COUNT 9 x10^3/uL (130-400)
[2021-04-28 05:40] LABS: CHLORIDE 104 mmol/L (98-107)
[2021-04-28 05:54] LABS: ALANINE AMINOTRANSFERASE 13 U/L (12-78); ALBUMIN 2.9 g/dL (3.4-5.0); ALKALINE PHOSPHATASE 73 U/L (45-117); ANION GAP 5 mmol/L (5-15); CALCIUM 8.5 mg/dL (8.5-10.1); CREATININE 0.72 mg/dL (0.7-1.3); TOTAL PROTEIN 6.6 g/dL (6.4-8.2)
[2021-04-28 06:05] LABS: BAND#(MANUAL) 0.05 x10^3/uL; BANDS%(MANUAL) 6 % (0-7); LYMPH#(MANUAL) 0.56 x10^3/uL (1-3.4); LYMPHS% (MANUAL) 62 % (22-44); MONOS#(MANUAL) 0.04 x10^3/uL (0.3-2.7); MONOS% (MANUAL) 4 % (2-9); SEG#(MANUAL) 0.25 x10^3/uL (1.8-6.8); SEGS% (MANUAL) 28 % (42-75)
[2021-04-28 06:07] LABS: ANISOCYTOSIS 1+; OVALOCYTES 1+
[2021-04-28 06:08] LABS: <PLATELET ESTIMATE> DECREASED; <PLT MORPHOLOGY> NORMAL PLT MORPH
[2021-04-28] MEDS: FLUCONAZOLE 200 MG TABLET PO SCH (09:11)
[2021-04-28] MEDS: ASCORBIC ACID 500 MG TABLET PO SCH ×2 (09:11→16:36)
[2021-04-28] MEDS: ZINC SULFATE 220 MG CAPSULE PO SCH (09:11)
[2021-04-28] MEDS: ACYCLOVIR 400 MG TABLET PO SCH ×2 (09:11→21:05)
[2021-04-28] MEDS: MULTIVITS,STRESS FORMULA 1 TABLET PO SCH (09:11)
[2021-04-28] MEDS: CHOLECALCIFEROL 5,000u TAB PO SCH (09:11)
[2021-04-28] MEDS: DOCUSATE 100 MG CAPSULE PO SCH ×2 (09:11→21:05)
[2021-04-28] MEDS: ACETAMINOPHEN 325 MG TABLET PO PRN (09:55)
[2021-04-28] MEDS: DIPHENHYDRAMINE 50 MG/ML, 1ML IVPush PRN (09:56)
[2021-04-28] MEDS: LORazepam 0.5MG TABLET PO PRN ×2 (10:53→21:06)
[2021-04-28] MEDS: LEVOFLOXACIN 500 MG TABLET PO SCH (16:36)
[2021-04-29 01:38] VITALS: BP 99/62
[2021-04-29] MEDS: OXYcodone IR 5MG TABLET PO PRN ×4 (01:40→20:28)
[2021-04-29] MEDS: OMEPRAZOLE 20 MG CAPSULE.DR PO SCH ×2 (05:17→16:52)
[2021-04-29 05:39] LABS: ALBUMIN 2.8 g/dL (3.4-5.0); ANION GAP 5 mmol/L (5-15); CALCIUM 8.1 mg/dL (8.5-10.1); CHLORIDE 107 mmol/L (98-107)
[2021-04-29 05:42] LABS: ALANINE AMINOTRANSFERASE 12 U/L (12-78); ALKALINE PHOSPHATASE 75 U/L (45-117); CREATININE 0.79 mg/dL (0.7-1.3); TOTAL PROTEIN 6.5 g/dL (6.4-8.2)
[2021-04-29 05:54] LABS: MEAN CORPUSCULAR HEMOGLOBIN 29.9 pg (27.5-34.5); MEAN CORPUSCULAR HGB CONC 34.5 g/dL (33.2-36.2); MEAN PLATELET VOLUME 9.2 fL (7.4-10.4); RED BLOOD COUNT 2.33 x10^6/uL (4.38-5.82); RED CELL DISTRIBUTION WIDTH 16.4 % (9.4-14.8)
[2021-04-29 06:11] LABS: PLATELET COUNT 11 x10^3/uL (130-400)
[2021-04-29 06:34] LABS: <PLATELET ESTIMATE> DECREASED; <PLT MORPHOLOGY> NORMAL PLT MORPH; ANISOCYTOSIS 1+; BAND#(MANUAL) 0.03 x10^3/uL; BANDS%(MANUAL) 3 % (0-7); LYMPH#(MANUAL) 0.62 x10^3/uL (1-3.4); LYMPHS% (MANUAL) 69 % (22-44); MONOS#(MANUAL) 0.03 x10^3/uL (0.3-2.7); MONOS% (MANUAL) 3 % (2-9); OVALOCYTES 1+; SEG#(MANUAL) 0.23 x10^3/uL (1.8-6.8); SEGS% (MANUAL) 25 % (42-75)
[2021-04-29] MEDS: FLUCONAZOLE 200 MG TABLET PO SCH (08:16)
[2021-04-29] MEDS: ZINC SULFATE 220 MG CAPSULE PO SCH (08:16)
[2021-04-29] MEDS: ACYCLOVIR 400 MG TABLET PO SCH ×2 (08:16→20:24)
[2021-04-29] MEDS: DOCUSATE 100 MG CAPSULE PO SCH ×2 (08:16→20:24)
[2021-04-29] MEDS: ASCORBIC ACID 500 MG TABLET PO SCH ×2 (08:16→16:52)
[2021-04-29] MEDS: CHOLECALCIFEROL 5,000u TAB PO SCH (08:16)
[2021-04-29] MEDS: MULTIVITS,STRESS FORMULA 1 TABLET PO SCH (08:17)
[2021-04-29 09:10] VITALS: BP 119/68
[2021-04-29 14:40] VITALS: BP 108/46
[2021-04-29] MEDS: LEVOFLOXACIN 500 MG TABLET PO SCH (16:52)
[2021-04-29 19:37] VITALS: BP 124/79
[2021-04-29] MEDS: LORazepam 0.5MG TABLET PO PRN (20:27)
[2021-04-30] VITALS (9 sets, daily range): BP systolic 103–119; BP diastolic 48–73
[2021-04-30] MEDS: OXYcodone IR 5MG TABLET PO PRN ×2 (03:03→21:34)
[2021-04-30] MEDS: MAGNESIUM HYDROXIDE 8%, 30ML UDC PO PRN (05:11)
[2021-04-30] MEDS: OMEPRAZOLE 20 MG CAPSULE.DR PO SCH ×2 (05:11→16:05)
[2021-04-30 06:20] LABS: MEAN CORPUSCULAR HEMOGLOBIN 30.2 pg (27.5-34.5); MEAN PLATELET VOLUME 9.7 fL (7.4-10.4); RED BLOOD COUNT 2.27 x10^6/uL (4.38-5.82); RED CELL DISTRIBUTION WIDTH 16.1 % (9.4-14.8)
[2021-04-30 06:25] LABS: ALANINE AMINOTRANSFERASE 14 U/L (12-78); ALBUMIN 2.8 g/dL (3.4-5.0); ANION GAP 6 mmol/L (5-15); CALCIUM 8.2 mg/dL (8.5-10.1); CHLORIDE 105 mmol/L (98-107); CREATININE 0.67 mg/dL (0.7-1.3); PLATELET COUNT 5 x10^3/uL (130-400)
[2021-04-30 06:28] LABS: ALKALINE PHOSPHATASE 71 U/L (45-117); BILIRUBIN,TOTAL 0.8 mg/dL (0.2-1.0); TOTAL PROTEIN 6.7 g/dL (6.4-8.2)
[2021-04-30 06:42] LABS: <PLATELET ESTIMATE> DECREASED; <PLT MORPHOLOGY> QNS FOR PLT MORPH; ANISOCYTOSIS 1+; BAND#(MANUAL) 0.01 x10^3/uL; BANDS%(MANUAL) 1 % (0-7); LYMPHS% (MANUAL) 67 % (22-44); MONOS#(MANUAL) 0.01 x10^3/uL (0.3-2.7); MONOS% (MANUAL) 1 % (2-9); OVALOCYTES 1+; SEG#(MANUAL) 0.28 x10^3/uL (1.8-6.8); SEGS% (MANUAL) 31 % (42-75)
[2021-04-30] MEDS: MULTIVITS,STRESS FORMULA 1 TABLET PO SCH (09:37)
[2021-04-30] MEDS: DOCUSATE 100 MG CAPSULE PO SCH ×2 (09:37→21:33)
[2021-04-30] MEDS: CHOLECALCIFEROL 5,000u TAB PO SCH (09:37)
[2021-04-30] MEDS: ASCORBIC ACID 500 MG TABLET PO SCH ×2 (09:37→16:05)
[2021-04-30] MEDS: ACYCLOVIR 400 MG TABLET PO SCH ×2 (09:37→21:33)
[2021-04-30] MEDS: FLUCONAZOLE 200 MG TABLET PO SCH (09:37)
[2021-04-30] MEDS: ZINC SULFATE 220 MG CAPSULE PO SCH (09:37)
[2021-04-30] MEDS: LORazepam 0.5MG TABLET PO PRN ×2 (10:00→21:34)
[2021-04-30] MEDS: DIPHENHYDRAMINE 50 MG/ML, 1ML IVPush PRN (10:45)
[2021-04-30] MEDS: ACETAMINOPHEN 325 MG TABLET PO PRN (10:45)
[2021-04-30] MEDS: LEVOFLOXACIN 500 MG TABLET PO SCH (16:05)
[2021-05-01 00:22] VITALS: BP 108/65
[2021-05-01] MEDS: LORazepam 0.5MG TABLET PO PRN (04:54)
[2021-05-01] MEDS: OXYcodone IR 5MG TABLET PO PRN ×2 (04:55→16:58)
[2021-05-01 04:58] LABS: MEAN CORPUSCULAR HEMOGLOBIN 29.3 pg (27.5-34.5); MEAN CORPUSCULAR HGB CONC 34.5 g/dL (33.2-36.2); MEAN PLATELET VOLUME 7.9 fL (7.4-10.4); RED BLOOD COUNT 2.61 x10^6/uL (4.38-5.82); RED CELL DISTRIBUTION WIDTH 16.5 % (9.4-14.8)
[2021-05-01 05:03] LABS: ALBUMIN 3.1 g/dL (3.4-5.0); ANION GAP 5 mmol/L (5-15); CALCIUM 8.6 mg/dL (8.5-10.1); CHLORIDE 105 mmol/L (98-107)
[2021-05-01 05:07] LABS: ALANINE AMINOTRANSFERASE 11 U/L (12-78); ALKALINE PHOSPHATASE 74 U/L (45-117); BILIRUBIN,TOTAL 1.2 mg/dL (0.2-1.0); CREATININE 0.66 mg/dL (0.7-1.3); PLATELET COUNT 11 x10^3/uL (130-400); TOTAL PROTEIN 6.7 g/dL (6.4-8.2)
[2021-05-01] MEDS: OMEPRAZOLE 20 MG CAPSULE.DR PO SCH ×2 (05:09→16:57)
[2021-05-01 06:01] LABS: BAND#(MANUAL) 0.02 x10^3/uL; BANDS%(MANUAL) 2 % (0-7); LYMPH#(MANUAL) 0.64 x10^3/uL (1-3.4); LYMPHS% (MANUAL) 71 % (22-44); MONOS#(MANUAL) 0.02 x10^3/uL (0.3-2.7); MONOS% (MANUAL) 2 % (2-9); SEG#(MANUAL) 0.23 x10^3/uL (1.8-6.8); SEGS% (MANUAL) 25 % (42-75)
[2021-05-01 06:02] LABS: <PLATELET ESTIMATE> DECREASED; <PLT MORPHOLOGY> NORMAL PLT MORPH; ANISOCYTOSIS 1+; OVALOCYTES 1+
[2021-05-01 07:03] VITALS: BP 107/66
[2021-05-01] MEDS: DOCUSATE 100 MG CAPSULE PO SCH ×2 (08:13→20:36)
[2021-05-01] MEDS: ACYCLOVIR 400 MG TABLET PO SCH ×2 (08:13→20:36)
[2021-05-01] MEDS: ASCORBIC ACID 500 MG TABLET PO SCH ×2 (08:13→16:58)
[2021-05-01] MEDS: CHOLECALCIFEROL 5,000u TAB PO SCH (08:14)
[2021-05-01] MEDS: MULTIVITS,STRESS FORMULA 1 TABLET PO SCH (08:14)
[2021-05-01] MEDS: FLUCONAZOLE 200 MG TABLET PO SCH (08:14)
[2021-05-01] MEDS: ZINC SULFATE 220 MG CAPSULE PO SCH (08:14)
[2021-05-01 14:11] VITALS: BP 126/69
[2021-05-01] MEDS: LEVOFLOXACIN 500 MG TABLET PO SCH (16:58)
[2021-05-01 19:00] VITALS: BP 110/56
[2021-05-02 00:16] VITALS: BP 122/61
[2021-05-02] MEDS: OXYcodone IR 5MG TABLET PO PRN (00:34)
[2021-05-02 04:44] LABS: ALANINE AMINOTRANSFERASE 14 U/L (12-78); ALBUMIN 2.9 g/dL (3.4-5.0); ANION GAP 5 mmol/L (5-15); CALCIUM 8.3 mg/dL (8.5-10.1); CHLORIDE 106 mmol/L (98-107); CREATININE 0.78 mg/dL (0.7-1.3)
[2021-05-02 04:46] LABS: ALKALINE PHOSPHATASE 77 U/L (45-117); BILIRUBIN,TOTAL 1.1 mg/dL (0.2-1.0); TOTAL PROTEIN 6.8 g/dL (6.4-8.2)
[2021-05-02 04:48] LABS: MEAN CORPUSCULAR HEMOGLOBIN 29.4 pg (27.5-34.5); MEAN CORPUSCULAR HGB CONC 34.3 g/dL (33.2-36.2); MEAN PLATELET VOLUME 8.3 fL (7.4-10.4); RED BLOOD COUNT 2.46 x10^6/uL (4.38-5.82); RED CELL DISTRIBUTION WIDTH 16.5 % (9.4-14.8)
[2021-05-02 04:50] LABS: PLATELET COUNT 6 x10^3/uL (130-400)
[2021-05-02] MEDS: OMEPRAZOLE 20 MG CAPSULE.DR PO SCH ×2 (06:10→16:33)
[2021-05-02 06:11] LABS: BAND#(MANUAL) 0.01 x10^3/uL; BANDS%(MANUAL) 1 % (0-7); EOS#(MANUAL) 0.01 x10^3/uL (0.0-0.4); EOS% (MANUAL) 1 % (1-7); LYMPH#(MANUAL) 0.74 x10^3/uL (1-3.4); LYMPHS% (MANUAL) 82 % (22-44); SEG#(MANUAL) 0.14 x10^3/uL (1.8-6.8); SEGS% (MANUAL) 16 % (42-75)
[2021-05-02 06:12] LABS: ANISOCYTOSIS 1+; OVALOCYTES 1+
[2021-05-02 06:13] LABS: <PLATELET ESTIMATE> DECREASED; <PLT MORPHOLOGY> QNS FOR PLT MORPH
[2021-05-02 08:09] VITALS: BP 113/53
[2021-05-02] MEDS: ZINC SULFATE 220 MG CAPSULE PO SCH (08:18)
[2021-05-02] MEDS: ACYCLOVIR 400 MG TABLET PO SCH (08:18)
[2021-05-02] MEDS: MULTIVITS,STRESS FORMULA 1 TABLET PO SCH (08:18)
[2021-05-02] MEDS: CHOLECALCIFEROL 5,000u TAB PO SCH (08:18)
[2021-05-02] MEDS: ASCORBIC ACID 500 MG TABLET PO SCH ×2 (08:19→16:33)
[2021-05-02] MEDS: FLUCONAZOLE 200 MG TABLET PO SCH (08:19)
[2021-05-02] MEDS: DOCUSATE 100 MG CAPSULE PO SCH (08:19)
[2021-05-02] MEDS: DIPHENHYDRAMINE 50 MG/ML, 1ML IVPush PRN (10:15)
[2021-05-02 11:11] VITALS: BP 102/52
[2021-05-02 11:29] VITALS: BP 114/53
[2021-05-02 14:03] VITALS: BP 122/56
[2021-05-02 15:02] VITALS: BP 111/53
[2021-05-02] MEDS ORDERED: ACYC-40 PO (16:15)
[2021-05-02] MEDS ORDERED: LEVO500T8 PO (16:15)
[2021-05-02] MEDS ORDERED: LORA2TAB99 PO (16:15)
[2021-05-02] MEDS ORDERED: FLUC200T PO (16:15)
[2021-05-02] MEDS: LEVOFLOXACIN 500 MG TABLET PO SCH (16:33)
== END 2021-05-02 19:45 | disposition home or self-care (01) | DRG 811 ==
LOC: ED 20:37 → EDIP 22:30 → 4NW 23:22
PROVIDERS: ADMIT Internal Medicine; ATTEND Family Medicine
PROC: 30233N1 Transfusion of Nonautologous Red Blood Cells into Peripheral Vein, Percutaneous Approach (ICD-10-PCS; 2021-03-07)
PROC: 30233R1 Transfusion of Nonautologous Platelets into Peripheral Vein, Percutaneous Approach (ICD-10-PCS; principal; 2021-03-09)
PROC: 07DR3ZX Extraction of Iliac Bone Marrow, Percutaneous Approach, Diagnostic (ICD-10-PCS; 2021-04-08)
DX: D46.9 Myelodysplastic syndrome, unspecified (principal); E88.3 Tumor lysis syndrome; D61.810 Antineoplastic chemotherapy induced pancytopenia; D68.9 Coagulation defect, unspecified; E87.1 Hypo-osmolality and hyponatremia; M35.1 Other overlap syndromes; K06.8 Other specified disorders of gingiva and edentulous alveolar ridge; D75.81 Myelofibrosis; D69.6 Thrombocytopenia, unspecified; E66.9 Obesity, unspecified; E88.09 Other disorders of plasma-protein metabolism, not elsewhere classified; F41.9 Anxiety disorder, unspecified; G47.00 Insomnia, unspecified; G62.9 Polyneuropathy, unspecified; G89.29 Other chronic pain; I10 Essential (primary) hypertension; K04.7 Periapical abscess without sinus; R04.0 Epistaxis; E80.6 Other disorders of bilirubin metabolism; T45.1X5A Adverse effect of antineoplastic and immunosuppressive drugs, initial encounter; Z68.30 Body mass index [BMI] 30.0-30.9, adult; Z87.891 Personal history of nicotine dependence; Z95.810 Presence of automatic (implantable) cardiac defibrillator
CPT/HCPCS: 36415; 36430; 38222; 70100; 77012; 80048; 80053; 80069; 81450; 82607; 82728; 83615; 83735; 84550; 85025; 85045; 85049; 85610; 85730; 86022; 86850; 86900; 86923; 88184; 88185; 88237; 88264; 88305; 88311; 88313; 88341; 88342; 88374; 93005; 99156; 99285; G0378; J0696; J0894; J2250; J3010; J1200; J2270; J2310; J7050; J7512; P9037; P9040; P9052; Q0163; Q0177